=== PATIENT | female | born 1950 | race Two or more races ===

== ENCOUNTER 2017-01-01 12:06 | Emergency (ER) | payer OTHER ==
[~2017-01-01] VITALS: Ht 157.5 cm; Wt 72.6 kg
[2017-01-01] MEDS ORDERED: cloNIDine HCL 0.1 MG TAB ONE (12:10)
[2017-01-01] MEDS ORDERED: cloNIDine HCL 0.1 MG TAB PO ONE (12:30)
[2017-01-01 13:29] LABS: Urine Bilirubin Negative (Negative); Urine Blood Negative /uL (Negative); Urine Glucose Normal (Normal); Urine Ketone Negative (Negative); Urine Nitrite Negative (Negative); Urine RBC <1 /hpf (0 - 4); Urine Squamous Epithelial Cell FEW /hpf (<5); Urine Urobilinogen Normal (Negative); Urine pH 7.5 (5.0-8.0)
[2017-01-01 13:36] LABS: Basophils # (auto) 0 uL; Basophils % (auto) 0.7 % (0.0-2.0); Eosinophils # (auto) 0.1 uL; Eosinophils % (auto) 1.3 % (0.0-7.0); Hematocrit 44.5 % (36.0-46.0); Lymphocytes # (auto) 1.7 uL; Lymphocytes % (auto) 27.3 % (10.0-50.0); Mean Corpuscular Hemoglobin 31.4 pg (28.0-32.0); Mean Corpuscular Hgb Conc. 33.7 g/dL (32.0-36.0); Mean Corpuscular Volume 93.2 fL (80.0-100.0); Mean Platelet Volume 8.8 fL (6.9-10.8); Monocytes # (auto) 0.4 uL; Monocytes % (auto) 6.3 % (0.0-12.0); Neutrophils # (auto) 3.9 uL; Neutrophils % (auto) 64.4 % (37.0-80.0); Nucleated Red Blood Cells % 0.2 %; Platelet Count (auto) 230 10^3/uL (140-450); Red Cell Distribution Width 13.2 % (11.8-14.3); White Blood Cell 6.1 10^3/uL (4.4-10.8)
[2017-01-01 13:44] LABS: BUN/Creatinine Ratio 14.3; Bilirubin, Total 0.5 mg/dL (0.2-1.0); Calcium 8.5 mg/dL (8.5-10.1); Magnesium 2.4 mg/dL (1.6-2.6); Potassium 3.4 mmol/L (3.5-5.1)
[2017-01-01 14:06] LABS: Urine Color Straw (Yellow)
[2017-01-01 20:06] VITALS: BP 173/89
== END 2017-01-01 20:42 | disposition home or self-care (01) ==
LOC: ER 12:06
DX: N39.0 Urinary tract infection, site not specified (principal); R03.0 Elevated blood-pressure reading, without diagnosis of hypertension
CPT/HCPCS: 36415; 74176; 80053; 81001; 83735; 84484; 85025; 93005

== ENCOUNTER 2018-07-11 16:41 | Inpatient (IN) | payer OTHER | END 2018-07-17 18:10 | disposition still patient (30) | LOC: ER 16:41 → TELE 07-12 14:55 → DOU IN ICU 07-12 16:52 → TELE 20:44 | PROC: 027035Z Dilation of Coronary Artery, One Artery with Two Drug-eluting Intraluminal Devices, Percutaneous Approach (ICD-10-PCS; principal; ~2018-07-11) | PROC: B2111ZZ Fluoroscopy of Multiple Coronary Arteries using Low Osmolar Contrast (ICD-10-PCS; ~2018-07-11) | PROC: B2151ZZ Fluoroscopy of Left Heart using Low Osmolar Contrast (ICD-10-PCS; ~2018-07-11) | PROC: 4A023N7 Measurement of Cardiac Sampling and Pressure, Left Heart, Percutaneous Approach (ICD-10-PCS; ~2018-07-11) | PROC: 3E073PZ Introduction of Platelet Inhibitor into Coronary Artery, Percutaneous Approach (ICD-10-PCS; ~2018-07-11) | PROC: B41F1ZZ Fluoroscopy of Right Lower Extremity Arteries using Low Osmolar Contrast (ICD-10-PCS; ~2018-07-11) | PROC: 02C03ZZ Extirpation of Matter from Coronary Artery, One Artery, Percutaneous Approach (ICD-10-PCS; ~2018-07-11) | PROC: 3E073PZ Introduction of Platelet Inhibitor into Coronary Artery, Percutaneous Approach (ICD-10-PCS; ~2018-07-11) | DX: I21.4 Non-ST elevation (NSTEMI) myocardial infarction (principal); I50.31 Acute diastolic (congestive) heart failure; E87.1 Hypo-osmolality and hyponatremia; E87.5 Hyperkalemia; E87.6 Hypokalemia; I25.82 Chronic total occlusion of coronary artery; I70.0 Atherosclerosis of aorta; K76.0 Fatty (change of) liver, not elsewhere classified; Z79.82 Long term (current) use of aspirin; I11.0 Hypertensive heart disease with heart failure ==

== ENCOUNTER 2021-10-29 20:43 | Inpatient (IN) | payer OTHER ==
[~2021-10-29] VITALS: Ht 157.5 cm; Wt 76.0 kg
[~2021-10-29 20:43] MED LIST: ASPI-394 PO; ATOR20TA50 PO; LISI-716 PO; MET25T PO; PANT40TA2 PO; TICA90TA PO
[2021-10-30] LABS: Basophils # (auto) 0 10 ^3/uL (0-0.2); Basophils % (auto) 0.1 % (0.0-2.0); Eosinophils # (auto) 0 10 ^3/uL (0-0.8); Eosinophils % (auto) 0.1 % (0.0-7.0); Hematocrit 36.5 % (36.0-46.0); Hemoglobin 12.7 g/dL (12.2-16.2); Lymphocytes # (auto) 0.8 10 ^3/uL (0.4-5.4); Lymphocytes % (auto) 6.4 % (10.0-50.0); Mean Corpuscular Hemoglobin 32.1 pg (28.0-32.0); Mean Corpuscular Hgb Conc. 34.8 g/dL (32.0-36.0); Monocytes # (auto) 0.5 10 ^3/uL (0-1.3); Monocytes % (auto) 4.2 % (0.0-12.0); Neutrophils # (auto) 11.2 10 ^3/uL (1.6-8.6); Neutrophils % (auto) 89.2 % (37.0-80.0); Red Blood Cells 3.97 10^6/uL (4.0-5.20); Red Cell Distribution Width 13.3 % (11.8-14.3); White Blood Cell 12.5 10^3/uL (4.4-10.8)
[2021-10-30 00:14] LABS: INR 1.06 (0.9-1.15); Partial Thromboplastin Time 26.8 sec (24.6-33.4)
[2021-10-30 00:17] LABS: Albumin 4.2 g/dL (3.4-5.0); Calcium 9.3 mg/dL (8.5-10.1); Magnesium 2.1 mg/dL (1.6-2.6)
[2021-10-30 00:19] LABS: BUN/Creatinine Ratio 12.8
[2021-10-30 00:27] LABS: Bilirubin, Total 0.6 mg/dL (0.2-1.0); Potassium 2.9 mmol/L (3.5-5.1); Total Protein 7.7 g/dL (6.4-8.2)
[2021-10-30] MEDS ORDERED: SODIUM CHLORIDE 0.9% 1,000 ML IV ONE (03:45)
[2021-10-30] MEDS ORDERED: ONDANSETRON HCL 4 MG/2 ML VIAL IV PRN (03:45)
[2021-10-30 04:53] LABS: Basophils # (auto) 0 10 ^3/uL (0-0.2); Basophils % (auto) 0.3 % (0.0-2.0); Eosinophils # (auto) 0 10 ^3/uL (0-0.8); Hematocrit 36.3 % (36.0-46.0); Hemoglobin 12.4 g/dL (12.2-16.2); Lymphocytes % (auto) 13.3 % (10.0-50.0); Mean Corpuscular Hemoglobin 31.6 pg (28.0-32.0); Mean Corpuscular Hgb Conc. 34.3 g/dL (32.0-36.0); Monocytes # (auto) 0.5 10 ^3/uL (0-1.3); Monocytes % (auto) 6.3 % (0.0-12.0); Neutrophils # (auto) 5.8 10 ^3/uL (1.6-8.6); Neutrophils % (auto) 80.1 % (37.0-80.0); Red Blood Cells 3.95 10^6/uL (4.0-5.20); Red Cell Distribution Width 13.3 % (11.8-14.3); White Blood Cell 7.2 10^3/uL (4.4-10.8)
[2021-10-30 05:11] LABS: BUN/Creatinine Ratio 11.4; Calcium 8.9 mg/dL (8.5-10.1)
[2021-10-30 05:39] VITALS: BP 149/78
[2021-10-30 08:00] VITALS: BP 140/71
[2021-10-30] MEDS ORDERED: POTASSIUM CHL 20 Meq TABLET PO ONE ×3 (11:15→12:00)
[2021-10-30] MEDS: ENOXAPARIN SOD 40 MG/0.4 ML SYRINGE SC SCH (12:04)
[2021-10-30] MEDS ORDERED: METO100T18 PO (12:07)
[2021-10-30] MEDS ORDERED: LOSA-69 PO (12:07)
[2021-10-30 13:00] VITALS: BP 150/80
[2021-10-30] MEDS: ACETAMINOPHEN 500 MG TAB PO PRN (14:53)
[2021-10-30 16:46] VITALS: BP 144/76
[2021-10-30] MEDS: LOSARTAN POTASSIUM 50 MG TAB PO SCH (21:27)
[2021-10-30] MEDS: METOPROLOL TARTRATE 25 MG TAB PO SCH (21:27)
[2021-10-30 21:49] VITALS: BP 122/73
[2021-10-30] MEDS ORDERED: ATORVASTATIN 20 MG TAB PO SCH (22:00)
[2021-10-31] MEDS: ACETAMINOPHEN 500 MG TAB PO PRN ×2 (04:29→16:35)
[2021-10-31 05:00] VITALS: BP 139/76
[2021-10-31 06:21] LABS: Basophils # (auto) 0 10 ^3/uL (0-0.2); Basophils % (auto) 0.4 % (0.0-2.0); Eosinophils # (auto) 0 10 ^3/uL (0-0.8); Eosinophils % (auto) 0.4 % (0.0-7.0); Hematocrit 32.9 % (36.0-46.0); Hemoglobin 11.4 g/dL (12.2-16.2); Lymphocytes # (auto) 1.3 10 ^3/uL (0.4-5.4); Mean Corpuscular Hemoglobin 32.3 pg (28.0-32.0); Mean Corpuscular Hgb Conc. 34.6 g/dL (32.0-36.0); Mean Corpuscular Volume 93.4 fL (80.0-100.0); Monocytes # (auto) 0.5 10 ^3/uL (0-1.3); Monocytes % (auto) 8.9 % (0.0-12.0); Neutrophils # (auto) 4.1 10 ^3/uL (1.6-8.6); Neutrophils % (auto) 68.3 % (37.0-80.0); Red Blood Cells 3.52 10^6/uL (4.0-5.20); Red Cell Distribution Width 13.2 % (11.8-14.3)
[2021-10-31 06:42] LABS: Potassium 3.3 mmol/L (3.5-5.1)
[2021-10-31 07:03] LABS: Calcium 8.2 mg/dL (8.5-10.1)
[2021-10-31 08:30] VITALS: BP 125/83
[2021-10-31 08:57] VITALS: BP 125/83
[2021-10-31] MEDS: METOPROLOL TARTRATE 25 MG TAB PO SCH (09:27)
[2021-10-31] MEDS: ENOXAPARIN SOD 40 MG/0.4 ML SYRINGE SC SCH (09:28)
[2021-10-31] MEDS: LOSARTAN POTASSIUM 50 MG TAB PO SCH (09:28)
[2021-10-31] MEDS ORDERED: PANTOPRAZOLE 40 MG TAB PO SCH (10:00)
[2021-10-31] MEDS ORDERED: ASPirin 81 mg TAB PO SCH (10:00)
[2021-10-31] MEDS ORDERED: LISINOPRIL 10 MG TAB PO SCH (10:00)
[2021-10-31 12:22] VITALS: BP 125/83
[2021-10-31 13:00] VITALS: BP 154/76
[2021-10-31 16:45] VITALS: BP 141/74
== END 2021-10-31 22:00 | disposition home health service (06) | DRG 562 ==
LOC: ER 20:43 → TELE 10-30 03:41 → TELE-WESTW 10-30 04:57
PROVIDERS: ADMIT Internal Medicine; ATTEND Internal Medicine
DX: S42.212A Unspecified displaced fracture of surgical neck of left humerus, initial encounter for closed fracture (principal); S72.002A Fracture of unspecified part of neck of left femur, initial encounter for closed fracture; S22.41XA Multiple fractures of ribs, right side, initial encounter for closed fracture; R55 Syncope and collapse; E78.5 Hyperlipidemia, unspecified; E87.6 Hypokalemia; G89.29 Other chronic pain; I11.9 Hypertensive heart disease without heart failure; I25.10 Atherosclerotic heart disease of native coronary artery without angina pectoris; M25.561 Pain in right knee; M25.562 Pain in left knee; R26.9 Unspecified abnormalities of gait and mobility; Z20.822 Contact with and (suspected) exposure to COVID-19; M50.30 Other cervical disc degeneration, unspecified cervical region; W18.39XA Other fall on same level, initial encounter; Y93.89 Activity, other specified; Y92.89 Other specified places as the place of occurrence of the external cause; I25.2 Old myocardial infarction; Z79.899 Other long term (current) drug therapy; Z88.5 Allergy status to narcotic agent; Z91.011 Allergy to milk products; Z80.1 Family history of malignant neoplasm of trachea, bronchus and lung; Z82.49 Family history of ischemic heart disease and other diseases of the circulatory system; Z83.3 Family history of diabetes mellitus; Z95.5 Presence of coronary angioplasty implant and graft; Y99.8 Other external cause status
CPT/HCPCS: 36415; 70450; 70551; 71045; 71250; 72125; 73030; 73502; 74176; 80048; 80053; 80061; 83735; 84443; 84484; 85025; 85610; 85730; 93005; 93306; 95819; 97110; 97116; 97163; 97530; G0378

== ENCOUNTER 2024-11-25 14:12 | Inpatient (IN) | payer OTHER ==
[~2024-11-25] VITALS: Ht 152.4 cm; Wt 79.7 kg
[~2024-11-25 14:12] MED LIST changes: +ASPI81CH49 PO; -ATOR20TA50 PO; +DOCU-265 PO; +IBUP-1455 PO; -LISI-716 PO; +LOSA-534 PO; +LOSA100T33 PO; -MET25T PO; +METO-289 PO; +METO100T18 PO; +PANT40T PO
--- NOTE | 2024-11-25 15:18 | ED.PDOC ---
Musculoskeletal HPI Comments 74 y/o F, with PMHX of HTN is BIBA for CC of lower extremity pain. EMS reports, patient is coming from home where she c/o right knee and left leg pain following, right knee surgery on 10/27/24. Patient states, she received right knee surgery at [facility] in [place], on (10/27/24) and has since, developed right knee and left leg pain. Patient relays, that during procedure she received an epidural which failed and had to receive general anesthesia as a result. Following procedure, patient endorses being unable to move or bear weight onto her legs. Patient has a dry, well healing incision to her right knee. Patient denies fever, chills, nausea, vomiting, numbness, or tingling. No other symptoms or modifying factors are present at this time. Chief Complaint: Lower Extremity Time Seen by MD: 15:00 Primary Care Provider: MARISOL Quinones Notes: Nurses Notes, Medications, Allergies Allergies: Coded Allergies: Codeine (Verified Allergy, Unknown, 07/11/18) Milk-related Compounds (Verified Allergy, Unknown, 07/13/18) Home Meds Active Scripts Pantoprazole Sodium Sesquihydr (Protonix) 40 Mg Tab, 40 MG PO DAILY, #30 TAB Prov:YESSY JAMES MD 07/17/18 Ticagrelor Base (BRILINTA) 90 Mg Tab, 90 MG PO BID, #60 TAB Prov:YESSY JAMES MD 07/17/18 Aspirin (Aspir-Low Ec) 81 Mg Tb, 81 MG PO DAILY, #30 Prov:YESSY JAMES MD 07/17/18 Reported Medications Metoprolol & Hydrochlorothiazi (Metoprolol/Hydrochlorothi) 1 Tab Tab, 1 TAB PO BID, TAB 10/30/21 Losartan Potassium (Losartan Potassium) 50 Mg Tab, 50 MG PO BID for 30 Days, MG 10/30/21 Information Source: Patient Mode of Arrival: EMS Location: Left, Right Extremity Location: Knee, Leg Timing: Days Prehospital treatment: None Severity: Moderate Able to Move Extremity: No Bear Weight: No Pain: Moderate Mechanism: Other (post operative) Symptoms: Pain DVT Risk Factors: NONE Last Tetanus: Unknown Associated signs and symptoms: Knee pain, Leg pain Past Medical History PAST MEDICAL HISTORY: HTN Surgical History: COOK CANDY History: No Pertinent COOK CANDY History Family History Family History: Reviewed,noncontributory to illness Social History Smoker: Non-Smoker Alcohol: Denies ETOH Use Drugs: Denies Drug Use Lives In: Home Constitutional: denies: chills, diaphoresis, fatigue, fever, malaise, sweats, weakness, others EENTM: denies: blurred vision, double vision, ear bleeding, ear discharge, ear drainage, ear pain, ear ringing, eye pain, eye redness, hearing loss, mouth pain, mouth swelling, nasal discharge, nose bleeding, nose congestion, nose pain, photophobia, tearing, throat pain, throat swelling, voice changes, others Respiratory: denies: cough, hemoptysis, orthopnea, SOB at rest, shortness of breath, SOB with excertion, stridor, wheezing, others Cardiovascular: denies: chest pain, dizzy spells, diaphoresis, Dyspnea on exertion, edema, irregular heart beat, left arm pain, lightheadedness, palpitations, PND, syncope, others Gastrointestinal: denies: abdomen distended, abdominal pain, blood streaked bowels, constipated, diarrhea, dysphagia, difficulty swallowing, hematemesis, melena, nausea, poor appetite, poor fluid intake, rectal bleeding, rectal pain, vomiting, others Genitourinary: denies: abnormal vagina bleeding, burning, dyspareunia, dysuria, flank pain, frequency, hematuria, incontinence, pain, , vagina discharge, urgency, others Neurological: denies: dizziness, fainting, headache, left sided numbness, left sided weakness, numbness, paresthesia, pre-existing deficit, right sided numbness, right sided weakness, seizure, speech problems, tingling, tremors, weakness, others Musculoskeletal: reports: others (left leg pain, right knee pain); denies: back pain, gout, joint pain, joint swelling, muscle pain, muscle stiffness, neck pain Integumetry: denies: bruises, change in color, change in hair/nails, dryness, laceration, lesions, lumps, rash, wounds, others Allergic/Immunocompromised: denies: Difficulty Healing, Frequent Infections, Hives, Itching, others Hematologic/Lymphatic: denies: anemia, blood clots, easy bleeding, easy bruising, swollen glands, others Endocrine: denies: excessive hunger, excessive sweating, excessive thirst, excessive urination, flushing, intolerance to cold, intolerance to heat, unexplained weight gain, unexplained weight loss, others Psychiatric: denies: anxiety, bipolar disorder, depression, hopeless, panic disorder, schizophrenia, sleepless, suicidal, others All Other Systems: Reviewed and Negative Physical Exam General Appearance: No Apparent Distress, Normal HEENT: Normal ENT Inspection, Pharynx Normal Neck: Full Range of Motion, Non-Tender, Normal, Normal Inspection Respiratory: Chest Non-Tender, Lungs Clear, No Accessory Muscle Use, No Respiratory Distress, Normal Breath Sounds Cardiovascular: No Edema, No Murmur, No Gallop, Normal Peripheral Pulses, Regular Rate/Rhythm Breast Exam: Deferred Gastrointestinal: No Organomegaly, Non Tender, No Pulsatile Mass, Normal Bowel Sounds, Soft Genitalia: Deferred Pelvic: Deferred Rectal: Deferred Extremities: No calf tenderness, Normal capillary refill, Normal inspection, Normal range of motion, Non-tender, No pedal edema Musculoskeletal : Apperance: Normal Neurologic: Alert, head of partner development II-XII nml as Tested, No Motor Deficits, Normal Affect, Normal Mood, No Sensory Deficits Cerebellar Function: Normal Reflexes: Normal Skin: Dry, Normal Color, Warm, Other (right knee postoperative incision) Lymphatic: No Adenopathy Was a procedure done? Was a procedure done?: No Differential Diagnosis EXT Differential Diagnosis: Sprain, Strain, Bursitis X-Ray, Labs, Meds, VS Vital Signs Date Time Temp Pulse Resp B/P (MAP) Pulse Ox O2 Delivery O2 Flow Rate FiO2 11/25/24 14:25 98.5 101 18 150/91 93 98.5 Lab Test 11/25/24 15:10 Range/Units White Blood Count 11.0 H 4.4-10.8 10^3/uL Red Blood Count 4.15 4.0-5.20 10^6/uL Hemoglobin 13.6 12.2-16.2 g/dL Hematocrit 38.9 36.0-46.0 % Mean Corpuscular Volume 93.7 80.0-100.0 fL Mean Corpuscular Hemoglobin 32.9 H 28.0-32.0 pg Mean Corpuscular Hemoglobin Concent 35.1 32.0-36.0 g/dL Red Cell Distribution Width 13.8 11.8-14.3 % Platelet Count 88 L 140-450 10^3/uL Mean Platelet Volume 9.0 6.9-10.8 fL Neutrophils (%) (Auto) 77.9 37.0-80.0 % Lymphocytes (%) (Auto) 6.7 L 10.0-50.0 % Monocytes (%) (Auto) 3.1 0.0-12.0 % Eosinophils (%) (Auto) 12.2 H 0.0-7.0 % Basophils (%) (Auto) 0.1 0.0-2.0 % Neutrophils # (Auto) 8.6 1.6-8.6 10 ^3/uL Lymphocytes # (Auto) 0.7 0.4-5.4 10 ^3/uL Monocytes # (Auto) 0.3 0-1.3 10 ^3/uL Eosinophils # (Auto) 1.3 H 0-0.8 10 ^3/uL Basophils # (Auto) 0 0-0.2 10 ^3/uL Nucleated Red Blood Cells 0.0 % D-Dimer, Quantitative 34.11 H 0.0-0.49 mg/L FEU Sodium Level 133 L 136-145 mmol/L Potassium Level 2.4 *L 3.5-5.1 mmol/L Chloride Level 94 L 98-107 mmol/L Carbon Dioxide Level 26 20-31 mmol/L Anion Gap 13 5-15 Blood Urea Nitrogen 22 9-23 mg/dL Creatinine 1.25 H 0.550-1.02 mg/dL Glomerular Filtration Rate Calc 45 >90 mL/min BUN/Creatinine Ratio 17.6 10.0-20.0 Serum Glucose 153 H 74-106 mg/dL Calcium Level 8.3 L 8.7-10.4 mg/dL [place] [id number] Ph: [phone] DIAGNOSTIC IMAGING Diagnostic Imaging Report : [id number] Signed PATIENT: ONESIMO FAULKNER ACCT: [id number] UNIT: [id number] : 1950 LOC: ER ROOM / BED: / AGE / SEX: 74 / F ADM STATUS: REG ER SERVICE [id number] ORDERING PHYSICIAN: TON GARCIA MD PROCEDURE(s): LLDVT - LT Lower DVT REASON: left leg pain and swelling after surgery on opposite leg ORDER NUMBER(s): [id number], ACCESSION NUMBER(s): [id number] Technique: Real-time ultrasound imaging, with color Doppler and compression of the left common femoral vein, femoral vein, greater saphenous vein, and popliteal vein. Indication: left leg pain and swelling after surgery on opposite leg Comparison: None Findings: There is normal compressibility and flow augmentation in all of the imaged deep veins. There are no filling defects. Impression: No evidence of DVT in the left lower extremity ATED BY: KAMARI LIZARRAGA MD DICTATED DATE/TIME: 11/25/241606 SIGNED BY: KAMARI LIZARRAGA MD SIGNED DATE/TIME: 11/25/241606 CC: Time of 1ST Reevaluation: 15:30 Reevaluation 1ST: Unchanged Patient Education/Counseling: Diagnosis, Treatment Family Education/Counseling: No Family Present Departure 1 Departure Time of Disposition: 17:39 (Patient with a worsening lower extremity weakness. Patient found to have hypokalemia. We will admit patient for further workup and expert consultation) Impression: Primary Impression: Lower extremity weakness Qualified Codes: R29.898 - Other symptoms and signs involving the musculoskeletal system Additional Impressions: Left leg pain Hypokalemia Disposition: ADMITTED INPATIENT Admit to: Med Surg Condition: Serious Critical Care Note Critical Care Time?: Yes Critical care comment: Critical hypokalemia and generalized weakness Authorized and Performed by: Ton Garcia MD Total critical care time: Approximately 38 minutes Due to a high probability of clinically significant, life threatening deterioration, the patient required my highest level of preparedness to intervene emergently and I personally spent this critical care time directly and personally managing the patient. This critical care time included obtaining a history; examining the patient; pulse oximetry; ordering and review of studies; arranging urgent treatment with development of a management plan; evaluation of patient's response to treatment; frequent reassessment; and, discussions with other providers. This critical care time was performed to assess and manage the high probability of imminent, life-threatening deterioration that could result in multi-organ failure. It was exclusive of separately billable procedures and treating other patients and teaching time. Please see my other sections and the rest of the note for further information on patient assessment and treatment. Stability Stability form required: No Heart Score Heart Score: Heart Score Response (Comments) Value History N/A 0 EKG N/A 0 Age N/A 0 Risk Factors N/A 0 Troponin N/A 0 Total 0 I personally scribed for TON GARCIA MD ([email or web address]) on 11/25/24 at 15:18. Electronically submitted by Anastasiia Wright ([email or web address]). I personally scribed for TON GARCIA MD ([email or web address]) on 11/25/24 at 16:13. Electronically submitted by Anastasiia Wright ([email or web address]). I personally scribed for TON GARCIA MD ([email or web address]) on 11/25/24 at 17:09. Electronically submitted by Anastasiia Wright ([email or web address]). TON GARCIA MD Nov 25, 2024 15:18
[2024-11-25 15:23] LABS: Hematocrit 38.9 % (36.0-46.0); Hemoglobin 13.6 g/dL (12.2-16.2); Mean Corpuscular Hemoglobin 32.9 pg (28.0-32.0); Mean Corpuscular Volume 93.7 fL (80.0-100.0); Nucleated Red Blood Cells % 0.0 %
[2024-11-25 15:32] LABS: Anion Gap 13 (5-15); Carbon Dioxide 26 mmol/L (20-31)
[2024-11-25 15:37] LABS: BUN/Creatinine Ratio 17.6 (10.0-20.0); Blood Urea Nitrogen 22 mg/dL (9-23)
[2024-11-25 15:38] LABS: Glucose 153 mg/dL (74-106)
[2024-11-25 15:39] LABS: Chloride 94 mmol/L (98-107); Sodium 133 mmol/L (136-145)
[2024-11-25 15:40] LABS: Calcium 8.3 mg/dL (8.7-10.4)
[2024-11-25 15:41] LABS: Potassium 2.4 mmol/L (3.5-5.1)
--- NOTE | 2024-11-25 16:06 | DVH ---
Technique: Real-time ultrasound imaging, with color Doppler and compression of the left common femor al vein, femoral vein, greater saphenous vein, and popliteal vein. Indication: left leg pain and swelling after surgery on opposite leg Comparison: None Findings: There is normal compressibility and flow augmentation in all of the imaged deep veins. There are no f illing defects. Impression: No evidence of DVT in the left lower extremity
[2024-11-25 17:00] VITALS: PULSE 96; RESP 20; O2SAT 95
[2024-11-25] MEDS: POTASSIUM CHL 20MEQ/100ML 100 ML IV SCH (18:15)
--- NOTE | 2024-11-25 18:26 | DVH ---
CLINICAL INDICATION: left hip pain TECHNIQUE: 2 radiographic views of the left hip were obtained. Comparison: L SHOULDER COMPLETE XRAY on DOS: 10/29/21, LHIP on DOS: 10/29/21 FINDINGS/IMPRESSION: Bony alignment appears normal. There is no fracture or dislocation.
--- NOTE | 2024-11-25 18:31 | DVH ---
CLINICAL INDICATION: right knee TECHNIQUE: 3 radiographic views of the right knee were obtained. Comparison: None FINDINGS/IMPRESSION: Total arthroplasty is noted on the right. No fracture or dislocation. No prior studies for comparison.
[2024-11-25] MEDS ORDERED: ONDANSETRON HCL 4 MG/2 ML VIAL IV PRN (18:45)
[2024-11-25] MEDS ORDERED: DOCUSATE SOD 100 MG CAP PO PRN (18:45)
--- NOTE | 2024-11-25 18:45 | DVHHP2 ---
Admitting Diagnosis: Right knee pain History of Present Illness 74 y/o F, with PMHX of HTN is BIBA for CC of lower extremity pain. EMS reports, patient is coming from home where she c/o right knee and left leg pain following, right knee surgery on 10/27/24. Patient states, she received right knee surgery at [facility] in [place], on (10/27/24) and has since, developed right knee and left leg pain. Patient relays, that during procedure she received an epidural which failed and had to receive general anesthesia as a result. Following procedure, patient endorses being unable to m ove or bear weight onto her legs. Patient has a dry, well healing incision to her right knee. Patient denies fever, chills, nausea, vomiting, numbness, or tingling. No other symptoms or modifying factors are present at this time. 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 History Family History Family History: Reviewed,noncontributory to illness Social History Smoker: Non-Smoker Alcohol: Denies ETOH Use Drugs: Denies Drug Use Lives In: Home Allergies: Coded Allergies: Codeine (Verified Allergy, Unknown, 07/11/18) Milk-related Compounds (Verified Allergy, Unknown, 07/13/18) Home Meds Active Scripts Pantoprazole Sodium Sesquihydr (Protonix) 40 Mg Tab, 40 MG PO DAILY, #30 TAB Prov:YESSY JAMES MD 07/17/18 Ticagrelor Base (BRILINTA) 90 Mg Tab, 90 MG PO BID, #60 TAB Prov:YESSY JAMES MD 07/17/18 Aspirin (Aspir-Low Ec) 81 Mg Tb, 81 MG PO DAILY, #30 Prov:YESSY JAMES MD 07/17/18 Reported Medications Metoprolol & Hydrochlorothiazi (Metoprolol/Hydrochlorothi) 1 Tab Tab, 1 TAB PO BID, TAB 10/30/21 Losartan Potassium (Losartan Potassium) 50 Mg Tab, 50 MG PO BID for 30 Days, MG 10/30/21 Current Medications Current Medications Medications (Trade) Dose Ordered Sig/Mike Route PRN Reason Start Time Stop Time Status Last Admin Potassium Chloride 100 ml @ 50 mls/hr Q2H IV 11/25/24 17:45 11/26/24 01:44 11/25/24 18:15 Sodium Chloride (Saline Lock Ns) 10 ml Q8HR IV 11/25/24 22:00 UNV Docusate Sodium (Colace Capsule) 100 mg BIDPRN PRN PO FOR CONSTIPATION 11/25/24 18:45 UNV Acetaminophen (Tylenol Tablet) 650 mg Q6HP PRN PO PAIN SCALE 1-3 OR TEMP>100.4 11/25/24 18:45 UNV Vital Signs Vital Signs Date Time Temp Pulse Resp B/P (MAP) Pulse Ox O2 Delivery O2 Flow Rate FiO2 11/25/24 14:25 98.5 101 18 150/91 93 98.5 Physical Exam Generally 74 years old woman, well nourished well developed. Mild distress HEENT-atraumatic, normocephalic Heart-regular rate and rhythm Lungs clear to auscultate bilaterally Abdomen soft nontender nondistended Musculoskeletal-right knee surgical site clean dry intact. No erythema or ten derness. No edema cyanosis Neuro-AO x3, no focal deficits SEPSIS Sepsis Screen Date sepsis recognized/suspect: Nov 25, 2024 Time Sepsis recognized/suspect: 1409 Recent Procedure: No On Antibiotic Therapy: No Respiratory Rate >20: No Heart Rate >90: Yes Temp<36 C (96.8 F) or >38.3 C: No SBP <90 or MAP <65 mmHG: No New Acute Mental Status Change: No Is the patient on CPAP, BIPAP,: No Physician Orders Lt Lower Dvt (11/25/24 15:01) Potassium Chl 20meq/100ml (11/25/24 17:45) L Hip Complete Xray (11/25/24 17:41) R Knee 3v Xray (11/25/24 17:41) Ct Angio Chest Contrast (11/25/24 18:34) Complete Blood Count (11/26/24 05:00) Complete Blood Count (11/27/24 05:00) Complete Blood Count (11/28/24 05:00) Complete Blood Count (11/29/24 05:00) Complete Blood Count (11/30/24 05:00) Comprehensive Metabolic Panel (11/26/24 05:00) Comprehensive Metabolic Panel (11/27/24 05:00) Comprehensive Metabolic Panel (11/28/24 05:00) Comprehensive Metabolic Panel (11/29/24 05:00) Comprehensive Metabolic Panel (11/30/24 05:00) Sodium Chloride 0.9% (11/25/24 18:45) Kidney (11/25/24 18:36) Admit (11/25/24 18:37) Code Status (11/25/24 18:37) Vital Signs .PER UNIT PROTOCOL (11/25/24 18:37) Review Orders With Adm.Md (11/25/24 18:37) Encourage Activity As Tolerate (11/25/24 18:37) Regular Diet (11/26/24 Breakfast) Sodium Chloride Lock (Saline Lock Ns) (11/25/24 22:00) Docusate Sodium Capsule (Colace Capsule) (11/25/24 18:45) Acetaminophen Tablet (Tylenol Tablet) (11/25/24 18:45) Notify Md Of Changes From Base (11/25/24 18:37) Advance Directive (11/25/24 18:37) Patient Condition (11/25/24 18:37) Allergies (11/25/24 18:37) Hydrocodone-Acet 5/325mg Tab (Hartman 5/32 (11/25/24 18:45) Ondansetron Hcl (Zofran) (11/25/24 18:45) Morphine 2mg Iv Q4hprn (11/25/24 18:45) Lovenox 40mg (11/26/24 10:00) Losartan Tablet (Cozaar Tablet) (11/25/24 22:00) Pantoprazole Tablet (Protonix Tablet) (11/26/24 10:00) Ticagrelor (Brilinta) (11/25/24 22:00) Pharmacy To Reconcile Home Med (11/25/24 18:37) Magnesium (11/26/24 05:00) Magnesium (11/27/24 05:00) Magnesium (11/28/24 05:00) Magnesium (11/29/24 05:00) Magnesium (11/30/24 05:00) Vital Signs Date Time Temp Pulse Resp B/P (MAP) Pulse Ox O2 Delivery O2 Flow Rate FiO2 11/25/24 14:25 98.5 101 18 150/91 93 98.5 Laboratory Tests Test 11/25/24 15:10 White Blood Count 11.0 10^3/uL (4.4-10.8) H Medications Medications Dose Ordered Sig/Mike Route Start Time Stop Time Status Last Admin Dose Admin Potassium Chloride 100 ml @ 50 mls/hr Q2H IV 11/25/24 17:45 11/26/24 01:44 11/25/24 18:15 Results Labs Test 11/25/24 15:10 Range/Units White Blood Count 11.0 H 4.4-10.8 10^3/uL Red Blood Count 4.15 4.0-5.20 10^6/uL Hemoglobin 13.6 12.2-16.2 g/dL Hematocrit 38.9 36.0-46.0 % Mean Corpuscular Volume 93.7 80.0-100.0 fL Mean Corpuscular Hemoglobin 32.9 H 28.0-32.0 pg Mean Corpuscular Hemoglobin Concent 35.1 32.0-36.0 g/dL Red Cell Distribution Width 13.8 11.8-14.3 % Platelet Count 88 L 140-450 10^3/uL Mean Platelet Volume 9.0 6.9-10.8 fL Neutrophils (%) (Auto) 77.9 37.0-80.0 % Lymphocytes (%) (Auto) 6.7 L 10.0-50.0 % Monocytes (%) (Auto) 3.1 0.0-12.0 % Eosinophils (%) (Auto) 12.2 H 0.0-7.0 % Basophils (%) (Auto) 0.1 0.0-2.0 % Neutrophils # (Auto) 8.6 1.6-8.6 10 ^3/uL Lymphocytes # (Auto) 0.7 0.4-5.4 10 ^3/uL Monocytes # (Auto) 0.3 0-1.3 10 ^3/uL Eosinophils # (Auto) 1.3 H 0-0.8 10 ^3/uL Basophils # (Auto) 0 0-0.2 10 ^3/uL Nucleated Red Blood Cells 0.0 % D-Dimer, Quantitative 34.11 H 0.0-0.49 mg/L FEU Sodium Level 133 L 136-145 mmol/L Potassium Level 2.4 *L 3.5-5.1 mmol/L Chloride Level 94 L 98-107 mmol/L Carbon Dioxide Level 26 20-31 mmol/L Anion Gap 13 5-15 Blood Urea Nitrogen 22 9-23 mg/dL Creatinine 1.25 H 0.550-1.02 mg/dL Glomerular Filtration Rate Calc 45 >90 mL/min BUN/Creatinine Ratio 17.6 10.0-20.0 Serum Glucose 153 H 74-106 mg/dL Calcium Level 8.3 L 8.7-10.4 mg/dL Primary Diagnosis Right knee pain status post right knee surgery Elevated D-dimer Plan Patient had knee surgery recently and been having right knee pain. Patient reach out to orthopedic surgery without support. Clear D-dimer. Vascular study negative Check CT angio to rule out PE Pain control Leukocytosis with the elevated eosinophil. Does not does not suspect infection in view of right knee has been clean dry no signs of infection Pharmacy for medication reconciliation Assess if patient taking hydrochlorothiazide and beta-chika. Restart losartan and tigrelor Monitor leukocytosis Check procal Full code Lovenox for DVT prophylaxis No GI prophylaxis needed Plan discussed with: Patient Problems List: (1) Lower extremity weakness Status: Acute (2) Left leg pain Status: Acute Date of Service: Nov 25, 2024 Billing Provider: MAIDA HDEZ MD Common Visit Codes: [id number] INP/OBS CARE (MOD) MAIDA HDEZ MD Nov 25, 2024 18:45
--- NOTE | 2024-11-25 19:03 | DVH ---
INDICATION: ismael TECHNIQUE: Multiple real-time sonographic images of the kidneys and bladder were obtained. COMPARISON: None FINDINGS: RIGHT kidney measures 11.1 cm in length. No hydronephrosis. LEFT kidney measures 10.6 cm in length. No hydronephrosis. No large intraluminal masses are seen in the bladder. 475 mL urine in the Prevoid bladder. Bladder wall thickness is 3 mm. No postvoid image. IMPRESSION: 1. No hydronephrosis. 2. 11.1 cm long right kidney 10.6 cm long left kidney. 3. Prevoid bladder volume is 475 mL. Bladder wall measures 3 mm. 4. No postvoid bladder image.
[2024-11-25] MEDS: IOHEXOL 350 MG/ML 100ML IJ ONE (19:33)
--- NOTE | 2024-11-25 20:07 | DVH ---
Procedure: CT CT ANGIO CHEST CONTRAST Reason for study/Clinical History: d-dimer elevated, rule out PE Comparison Study: CHEST XRAY 1 VIEW on DOS: 10/29/21, CT CHEST ABD PELVIS WO CONTRAS on DOS: 10/29/21 Exam Date: 11/25/2024 07:22 PM Radiation Dose Information: CT Dose: CTDI volume is 23.73 mGy. Dose-length product is 812.39 mGy*cm Contrast: Type of contrast: Omnipaque 350 Contrast inject: 60 mL Contrast wasted:0 TECHNIQUE: After the uneventful administration of intravenous contrast intravenously, CT imaging was performed through the chest. Coronal and sagittal reformations were performed by the technologist. FINDINGS: Lower Neck: Visualized portions of the thyroid gland are unremarkable. Aorta and Vasculature: Normal caliber of thoracic aorta. Lymph Nodes: No enlarged intrathoracic lymph nodes. Mediastinum: Heart size is normal. There is no pericardial effusion. The esophagus is unremarkable. Lungs: No focal consolidation, pleural effusion or significant pneumothorax. No suspicious pulmonary nodule or mass. Musculoskeletal: No acute osseous abnormality. Upper abdomen: Limited portions of the upper abdomen are unremarkable. IMPRESSION: 1. No findings of pulmonary emboli or pulmonary artery hypertension. 2. No pulmonary infiltrates or effusions. 3. All CT scans at this medical facility are performed using dose modulation techniques as appropriate to a performed exam including the following: Automated exposure control was utilized; adjustment of t he MA and/or KV according to patient size; and use of iterative reconstruction technique.
[2024-11-25] MEDS ORDERED: TICAGRELOR 90 MG TAB PO SCH (22:00)
[2024-11-25 22:30] VITALS: BP 138/68; PULSE 98; RESP 19; TEMP 98.4
[2024-11-25] MEDS: LOSARTAN POTASSIUM 50 MG TAB PO SCH (23:39)
[2024-11-26] VITALS (7 sets, daily range): BP systolic 124–157; BP diastolic 73–90; PULSE 93–111; RESP 16–18; TEMP 98–99.3; O2SAT 92–95
[2024-11-26] MEDS: SODIUM CHLOR 0.9% PF (SALINE LOCK) 10ML VIAL/SYR IV SCH (00:26)
[2024-11-26] MEDS: ACETAMINOPHEN 325 MG TAB PO PRN (00:41)
[2024-11-26] MEDS: POTASSIUM CHL 20MEQ/100ML 100 ML IV SCH (04:52)
[2024-11-26 05:11] LABS: Albumin 3.2 g/dL (3.2-4.8); Anion Gap 11 (5-15); BUN/Creatinine Ratio 17.1 (10.0-20.0); Blood Urea Nitrogen 19 mg/dL (9-23); Carbon Dioxide 27 mmol/L (20-31); Magnesium 2.1 mg/dL (1.6-2.6); Total Protein 5.9 g/dL (5.7-8.2)
[2024-11-26 05:39] LABS: Hematocrit 36.7 % (36.0-46.0); Hemoglobin 12.6 g/dL (12.2-16.2); Mean Corpuscular Hemoglobin 32.1 pg (28.0-32.0); Mean Corpuscular Volume 93.6 fL (80.0-100.0); Nucleated Red Blood Cells % 0.1 %
[2024-11-26 05:45] LABS: Alanine Aminotransferase 90 U/L (7-40); Alkaline Phosphatase 250 U/L (46-116); Bilirubin, Total 1.8 mg/dL (0.2-1.0); Calcium 7.9 mg/dL (8.7-10.4); Chloride 97 mmol/L (98-107); Glucose 135 mg/dL (74-106); Potassium 2.6 mmol/L (3.5-5.1); Sodium 135 mmol/L (136-145)
[2024-11-26] MEDS: PANTOPRAZOLE 40 MG TAB PO SCH (06:49)
[2024-11-26] MEDS: ENOXAPARIN SOD 40 MG/0.4 ML SYRINGE SC SCH (09:16)
--- NOTE | 2024-11-26 12:12 | DVHPN2 ---
Subjective The patient is seen and examined at bedside. Complain of severe knee pain. Reviewed: Care Plan, H&P, Labs, Medications, Previous Orders, Radiology Changes from previous H/P or p: No Changes Objective Vitals Vital Signs Date Time Temp Pulse Resp B/P (MAP) Pulse Ox O2 Delivery O2 Flow Rate FiO2 11/26/24 09:15 157/90 11/26/24 08:41 98.9 95 18 94 98.9 11/26/24 07:57 Room Air* 0 21 Intake/Output Intake and Output 11/26/24 07:00 Intake Total 800 ml Balance 800 ml Intake Oral 800 ml # Voids 1 General Appearance: Alert, Cooperative, No acute distress HEENT: Atraumatic, PERRLA, EOMI, Mucous membr. moist/pink Neck: Supple Lungs: Clear to auscultation, Normal air movement Cardiovascular: Regular rate, Normal S1, Normal S2, No murmurs, Gallops, Rubs Abdomen: Normal bowel sounds, Soft, No tenderness Neuro: Cranial nerves 3-12 NL Psych/Mental Status: Mental status NL Medications Current Medications Medications Dose Ordered Sig/Mike Route Start Time Stop Time Status Last Admin Dose Admin Sodium Chloride 10 ml Q8HR IV 11/25/24 22:00 11/26/24 06:50 10 ML Docusate Sodium 100 mg BIDPRN PRN PO 11/25/24 18:45 Acetaminophen 650 mg Q6HP PRN PO 11/25/24 18:45 11/26/24 09:15 650 MG Acetaminophen/ Hydrocodone Bitart 1 tab Q4HP PRN PO 11/25/24 18:45 Ondansetron HCl 4 mg Q4HP PRN IV 11/25/24 18:45 Morphine Sulfate 2 mg Q4HPRN PRN IV 11/25/24 18:45 Enoxaparin Sodium 40 mg DAILY SC 11/26/24 10:00 11/26/24 09:16 40 MG Losartan Potassium 50 mg BID PO 11/25/24 22:00 11/26/24 09:15 50 MG Pantoprazole Sodium 40 mg DAILY@0700 PO 11/26/24 07:00 11/26/24 06:49 40 MG Laboratory Results Laboratory Tests 11/26/24 04:27 Chemistry Test 11/25/24 15:10 11/26/24 04:27 Calcium Level 8.3 mg/dL (8.7-10.4) L 7.9 mg/dL (8.7-10.4) L Albumin 3.2 g/dL (3.2-4.8) Magnesium Level 2.1 mg/dL (1.6-2.6) Total Protein 5.9 g/dL (5.7-8.2) Coagulation Test 11/25/24 15:10 D-Dimer, Quantitative 34.11 mg/L FEU (0.0-0.49) H LFT Test 11/26/24 04:27 Alanine Aminotransferase (ALT) 90 U/L (7-40) H Alkaline Phosphatase 250 U/L (46-116) H Aspartate Amino Transferase (AST) 53 U/L (13-40) H Total Bilirubin 1.8 mg/dL (0.2-1.0) H Labs and/or images reviewed: Labs reviewed by me Assessment/Plan Assessment/Plan Right knee pain status post right knee surgery Elevated D-dimer Plan Continuing current management. We will continuing with pain medication. Monitor leukocytosis Restart home medication including hydrochlorothiazide, beta chika, losartan . Review of CTA of chest showed no acute PE. Pain control with [place] and morphine. This medical document was created using an electronic medical record system with [employer] direct computerized dictation system. Although this document has been carefully reviewed, there may still be some phonetic and typographical errors. These areas are purely typographical due to imperfections of the software programs, and do not reflect any compromise in the patient's medical care. Plan discussed with: Patient Date of Service: Nov 26, 2024 Billing Provider: FELECIA VALENCIA MD Common Visit Codes: [id number] INP/OBS CARE(HIGH) FELECIA VALENCIA MD Nov 26, 2024 12:12
[2024-11-27 01:00] VITALS: BP 155/81; PULSE 104; RESP 16; TEMP 98.3; O2SAT 93
[2024-11-27 05:00] VITALS: BP 101/65; PULSE 77; RESP 16; TEMP 97.7; O2SAT 98
[2024-11-27 06:15] LABS: Hemoglobin 12.8 g/dL (12.2-16.2)
[2024-11-27 06:17] LABS: Hematocrit 36.6 % (36.0-46.0); Mean Corpuscular Hemoglobin 32.6 pg (28.0-32.0); Mean Corpuscular Volume 93.1 fL (80.0-100.0)
[2024-11-27 06:24] LABS: Albumin 3.3 g/dL (3.2-4.8); Anion Gap 14 (5-15); BUN/Creatinine Ratio 18.0 (10.0-20.0); Carbon Dioxide 22 mmol/L (20-31); Glucose 102 mg/dL (74-106); Magnesium 1.9 mg/dL (1.6-2.6); Total Protein 6.1 g/dL (5.7-8.2)
[2024-11-27 06:57] LABS: Alanine Aminotransferase 71 U/L (7-40); Alkaline Phosphatase 317 U/L (46-116); Bilirubin, Total 1.9 mg/dL (0.2-1.0); Blood Urea Nitrogen 24 mg/dL (9-23); Calcium 8.0 mg/dL (8.7-10.4); Chloride 98 mmol/L (98-107); Potassium 2.8 mmol/L (3.5-5.1); Sodium 134 mmol/L (136-145)
[2024-11-27 09:00] LABS: Total Cells Counted 100.0 (100)
[2024-11-27 09:06] LABS: Anisocytosis Slight
[2024-11-27 09:47] VITALS: BP 114/76; PULSE 94; RESP 18; TEMP 97.6; O2SAT 92
[2024-11-27 13:20] VITALS: BP 119/75; PULSE 101; RESP 18; TEMP 98.4; O2SAT 89
[2024-11-27] MEDS: POTASSIUM CHL 20 Meq TABLET PO SCH (14:13)
--- NOTE | 2024-11-27 14:52 | DVHPN2 ---
Subjective The patient is seen and examined at bedside. Complain of severe knee pain. Reviewed: Care Plan, H&P, Labs, Medications, Previous Orders, Radiology Changes from previous H/P or p: No Changes Objective Vitals Vital Signs Date Time Temp Pulse Resp B/P (MAP) Pulse Ox O2 Delivery O2 Flow Rate FiO2 11/27/24 13:20 98.4 101 18 119/75 (90) 89 98.4 11/27/24 08:15 Room Air* 0 21 Intake/Output Intake and Output 11/27/24 07:00 Intake Total 1000 ml Balance 1000 ml Intake Oral 1000 ml # Voids 5 General Appearance: Alert, Cooperative, No acute distress HEENT: Atraumatic, PERRLA, EOMI, Mucous membr. moist/pink Neck: Supple Lungs: Clear to auscultation, Normal air movement Cardiovascular: Regular rate, Normal S1, Normal S2, No murmurs, Gallops, Rubs Abdomen: Normal bowel sounds, Soft, No tenderness Neuro: Cranial nerves 3-12 NL Psych/Mental Status: Mental status NL Medications Current Medications Medications Dose Ordered Sig/Mike Route Start Time Stop Time Status Last Admin Dose Admin Sodium Chloride 10 ml Q8HR IV 11/25/24 22:00 11/27/24 14:13 10 ML Docusate Sodium 100 mg BIDPRN PRN PO 11/25/24 18:45 Acetaminophen 650 mg Q6HP PRN PO 11/25/24 18:45 11/27/24 14:13 650 MG Acetaminophen/ Hydrocodone Bitart 1 tab Q4HP PRN PO 11/25/24 18:45 Ondansetron HCl 4 mg Q4HP PRN IV 11/25/24 18:45 Morphine Sulfate 2 mg Q4HPRN PRN IV 11/25/24 18:45 Enoxaparin Sodium 40 mg DAILY SC 11/26/24 10:00 11/26/24 09:16 40 MG Losartan Potassium 50 mg BID PO 11/25/24 22:00 11/27/24 10:26 50 MG Pantoprazole Sodium 40 mg DAILY@0700 PO 11/26/24 07:00 11/27/24 06:13 40 MG Laboratory Results Laboratory Tests 11/27/24 04:56 Chemistry Test 11/27/24 04:56 Albumin 3.3 g/dL (3.2-4.8) Calcium Level 8.0 mg/dL (8.7-10.4) L Magnesium Level 1.9 mg/dL (1.6-2.6) Total Protein 6.1 g/dL (5.7-8.2) LFT Test 11/27/24 04:56 Alanine Aminotransferase (ALT) 71 U/L (7-40) H Alkaline Phosphatase 317 U/L (46-116) H Aspartate Amino Transferase (AST) 51 U/L (13-40) H Total Bilirubin 1.9 mg/dL (0.2-1.0) H Assessment/Plan Assessment/Plan Right knee pain status post right knee surgery Elevated D-dimer Plan Continuing current management. We will continuing with pain medication. Monitor leukocytosis Restart home medication including hydrochlorothiazide, beta chika, losartan . Review of CTA of chest showed no acute PE. Pain control with [place] and morphine. PT to get the patient out of bed and ambulate This medical document was created using an electronic medical record system with [employer] direct computerized dictation system. Although this document has been carefully reviewed, there may still be some phonetic and typographical errors. These areas are purely typographical due to imperfections of the software programs, and do not reflect any compromise in the patient's medical care. Plan discussed with: Patient Date of Service: Nov 27, 2024 Billing Provider: FELECIA VALENCIA MD Common Visit Codes: [id number] INP/OBS CARE(HIGH) FELECIA VALENCIA MD Nov 27, 2024 14:52
[2024-11-27 17:31] VITALS: BP 18/72; PULSE 103; RESP 20; TEMP 98.1; O2SAT 93
[2024-11-27] MEDS: POTASSIUM CHL 20 Meq TABLET PO ONE (18:55)
[2024-11-27 21:00] VITALS: BP 123/73; PULSE 111; RESP 18; TEMP 99.5; O2SAT 93
[2024-11-28] VITALS (8 sets, daily range): BP systolic 108–135; BP diastolic 71–84; PULSE 64–102; RESP 16–20; TEMP 97–100.3; O2SAT 90–94
[2024-11-28 05:52] LABS: Alanine Aminotransferase 51 U/L (7-40); Albumin 3.2 g/dL (3.2-4.8); Alkaline Phosphatase 250 U/L (46-116); Anion Gap 12 (5-15); BUN/Creatinine Ratio 25.8 (10.0-20.0); Bilirubin, Total 1.6 mg/dL (0.2-1.0); Blood Urea Nitrogen 31 mg/dL (9-23); Calcium 7.9 mg/dL (8.7-10.4); Carbon Dioxide 22 mmol/L (20-31); Chloride 100 mmol/L (98-107); Glucose 129 mg/dL (74-106); Hematocrit 37.4 % (36.0-46.0); Hemoglobin 13.4 g/dL (12.2-16.2); Magnesium 2.0 mg/dL (1.6-2.6); Mean Corpuscular Hemoglobin 33.4 pg (28.0-32.0); Mean Corpuscular Volume 93.3 fL (80.0-100.0); Potassium 4.4 mmol/L (3.5-5.1); Sodium 134 mmol/L (136-145); Total Protein 6.0 g/dL (5.7-8.2)
[2024-11-28 06:41] LABS: Total Cells Counted 100.0 (100)
[2024-11-28] MEDS: MORPHINE SULFATE INJ 2 MG/ml SYRG IV PRN (09:11)
--- NOTE | 2024-11-28 12:26 | DVHPN2 ---
Subjective The patient is seen and examined at bedside. Complain of severe knee pain. Reviewed: Care Plan, H&P, Labs, Medications, Previous Orders, Radiology Changes from previous H/P or p: No Changes Objective Vitals Vital Signs Date Time Temp Pulse Resp B/P (MAP) Pulse Ox O2 Delivery O2 Flow Rate FiO2 11/28/24 09:41 102 20 106/66 11/28/24 09:25 98.2 92 98.2 11/28/24 08:00 Room Air* 0 21 Intake/Output Intake and Output 11/28/24 07:00 Intake Total 570 ml Balance 570 ml Intake Oral 570 ml # Voids 5 # Bowel Movements 1 General Appearance: Alert, Cooperative, No acute distress HEENT: Atraumatic, PERRLA, EOMI, Mucous membr. moist/pink Neck: Supple Lungs: Clear to auscultation, Normal air movement Cardiovascular: Regular rate, Normal S1, Normal S2, No murmurs, Gallops, Rubs Abdomen: Normal bowel sounds, Soft, No tenderness Neuro: Cranial nerves 3-12 NL Psych/Mental Status: Mental status NL Medications Current Medications Medications Dose Ordered Sig/Mike Route Start Time Stop Time Status Last Admin Dose Admin Sodium Chloride 10 ml Q8HR IV 11/25/24 22:00 11/28/24 06:01 10 ML Docusate Sodium 100 mg BIDPRN PRN PO 11/25/24 18:45 Acetaminophen 650 mg Q6HP PRN PO 11/25/24 18:45 11/27/24 22:35 650 MG Acetaminophen/ Hydrocodone Bitart 1 tab Q4HP PRN PO 11/25/24 18:45 Ondansetron HCl 4 mg Q4HP PRN IV 11/25/24 18:45 Morphine Sulfate 2 mg Q4HPRN PRN IV 11/25/24 18:45 11/28/24 09:11 2 MG Enoxaparin Sodium 40 mg DAILY SC 11/26/24 10:00 11/28/24 09:10 40 MG Losartan Potassium 50 mg BID PO 11/25/24 22:00 11/28/24 09:10 50 MG Pantoprazole Sodium 40 mg DAILY@0700 PO 11/26/24 07:00 11/28/24 06:01 40 MG Laboratory Results Laboratory Tests 11/28/24 04:53 Chemistry Test 11/28/24 04:53 Albumin 3.2 g/dL (3.2-4.8) Calcium Level 7.9 mg/dL (8.7-10.4) L Magnesium Level 2.0 mg/dL (1.6-2.6) Total Protein 6.0 g/dL (5.7-8.2) LFT Test 11/28/24 04:53 Alanine Aminotransferase (ALT) 51 U/L (7-40) H Alkaline Phosphatase 250 U/L (46-116) H Aspartate Amino Transferase (AST) 44 U/L (13-40) H Total Bilirubin 1.6 mg/dL (0.2-1.0) H Labs and/or images reviewed: Labs reviewed by me Assessment/Plan Assessment/Plan Right knee pain status post right knee surgery Elevated D-dimer Plan Continuing current management. We will continuing with pain medication. Monitor leukocytosis Restart home medication including hydrochlorothiazide, beta chika, losartan . Review of CTA of chest showed no acute PE. Pain control with [place] and morphine. PT to get the patient out of bed and ambulate. Encouraged the patient to work with PT. This medical document was created using an electronic medical record system with [employer] direct computerized dictation system. Although this document has been carefully reviewed, there may still be some phonetic and typographical errors. These areas are purely typographical due to imperfections of the software programs, and do not reflect any compromise in the patient's medical care. Plan discussed with: Patient Date of Service: Nov 28, 2024 Billing Provider: FELECIA VALENCIA MD Common Visit Codes: [id number] INP/OBS CARE(HIGH) FELECIA VALENCIA MD Nov 28, 2024 12:26
[2024-11-29] VITALS (11 sets, daily range): BP systolic 94–155; BP diastolic 49–90; PULSE 86–114; RESP 18–24; TEMP 97.4–105; O2SAT 92–98
[2024-11-29] MEDS: HYDROcodone-ACET 5/325MG TAB PO PRN (01:54)
[2024-11-29 08:09] LABS: Hematocrit 34.5 % (36.0-46.0); Hemoglobin 12.0 g/dL (12.2-16.2); Mean Corpuscular Hemoglobin 32.7 pg (28.0-32.0); Mean Corpuscular Volume 94.5 fL (80.0-100.0); Nucleated Red Blood Cells % 0.1 %
[2024-11-29 08:27] LABS: Alanine Aminotransferase 38 U/L (7-40); Anion Gap 10 (5-15); BUN/Creatinine Ratio 26.0 (10.0-20.0); Carbon Dioxide 22 mmol/L (20-31); Chloride 99 mmol/L (98-107); Magnesium 2.0 mg/dL (1.6-2.6); Potassium 4.4 mmol/L (3.5-5.1); Total Protein 5.8 g/dL (5.7-8.2)
[2024-11-29 08:28] LABS: Albumin 3.0 g/dL (3.2-4.8); Alkaline Phosphatase 202 U/L (46-116); Bilirubin, Total 1.4 mg/dL (0.2-1.0); Blood Urea Nitrogen 40 mg/dL (9-23); Calcium 7.6 mg/dL (8.7-10.4); Glucose 119 mg/dL (74-106); Sodium 131 mmol/L (136-145)
--- NOTE | 2024-11-29 12:40 | ECG ---
[facility] Test Date: 2024-11-27 Test Time: 10:45:37 Pat Name: ONESIMO FAULKNER Department: Room: 0272 A Gender: F Speech And Language Clinician: PARESH : 1950 Requested By: FELECIA VALENCIA Order Number: [id number] Reading MD: Andres Quezada Measurements Intervals [place] Rate: 99 P: 54 CT: 140 QRS: -35 QRSD: 95 T: 90 QT: 355 QTc: 456 Interpretive Statements Sinus rhythm Probable left atrial enlargement Left axis deviation Low voltage, extremity leads Consider anterior infarct Nonspecific T abnormalities, lateral leads Electronically Signed On 11-29-2024 18:27:23 PDT by Andres Quezada Please click the below link to view image of tracing.
--- NOTE | 2024-11-29 15:58 | DVHPN2 ---
Subjective Complaining of chest discomfort with audible wheezing Reviewed: Care Plan, H&P, Labs, Medications, Previous Orders, Radiology Changes from previous H/P or p: Changes Objective Vitals Vital Signs Date Time Temp Pulse Resp B/P (MAP) Pulse Ox O2 Delivery O2 Flow Rate FiO2 11/29/24 15:50 100.5 11/29/24 13:17 111 21 150/90 (110) 92 11/29/24 08:00 Nasal Cannula* 1 24 Intake/Output Intake and Output 11/29/24 07:00 Intake Total 330 ml Balance 330 ml Intake Oral 330 ml # Voids 7 General Appearance: Alert, Oriented X3, Cooperative, moderate distress HEENT: Atraumatic Neck: Supple Lungs: Other (Decreased air entry bilaterally with severe expiratory wheezing) Cardiovascular: Normal S1, Normal S2, Other (Tachycardia) Abdomen: Normal bowel sounds, Soft, No tenderness Extremities: No edema Neuro: Normal speech, Cranial nerves 3-12 NL Psych/Mental Status: Mental status NL, Mood NL Medications Current Medications Medications Dose Ordered Sig/Mike Route Start Time Stop Time Status Last Admin Dose Admin Sodium Chloride 10 ml Q8HR IV 11/25/24 22:00 11/29/24 05:05 10 ML Docusate Sodium 100 mg BIDPRN PRN PO 11/25/24 18:45 Acetaminophen 650 mg Q6HP PRN PO 11/25/24 18:45 11/29/24 15:50 650 MG Acetaminophen/ Hydrocodone Bitart 1 tab Q4HP PRN PO 11/25/24 18:45 11/29/24 01:54 1 TAB Ondansetron HCl 4 mg Q4HP PRN IV 11/25/24 18:45 Morphine Sulfate 2 mg Q4HPRN PRN IV 11/25/24 18:45 11/28/24 09:11 2 MG Enoxaparin Sodium 40 mg DAILY SC 11/26/24 10:00 11/28/24 09:10 40 MG Losartan Potassium 50 mg BID PO 11/25/24 22:00 11/29/24 09:24 50 MG Pantoprazole Sodium 40 mg DAILY@0700 PO 11/26/24 07:00 11/29/24 06:02 40 MG Laboratory Results Laboratory Tests 11/29/24 06:48 Chemistry Test 11/29/24 06:48 Albumin 3.0 g/dL (3.2-4.8) L Calcium Level 7.6 mg/dL (8.7-10.4) L Magnesium Level 2.0 mg/dL (1.6-2.6) Total Protein 5.8 g/dL (5.7-8.2) LFT Test 11/29/24 06:48 Alanine Aminotransferase (ALT) 38 U/L (7-40) Alkaline Phosphatase 202 U/L (46-116) H Aspartate Amino Transferase (AST) 37 U/L (13-40) Total Bilirubin 1.4 mg/dL (0.2-1.0) H Labs and/or images reviewed: Labs reviewed by me, Image(s) reviewed by me Assessment/Plan Assessment/Plan Covering: Suspected sepsis with worsening leukocytosis due to suspected pneumonia Acute hypoxic respiratory failure due to pulmonary congestion and suspected pneumonia Chest discomfort; to rule out ACS NSTEMI; elevated troponin Elevated D-dimer; PE and DVT ruled out Episodic wheezing with tachycardia Hypertensive heart disease without heart failure Physical deconditioning due to above Thrombocytopenia; unclear etiology Obesity Transfer to telemetry; reviewed EKG that showed no ST-elevation; ordered troponin that came back elevated Cardiology consulted Started aspirin and statin but aspirin was not given due to thrombocytopenia Started on nebulizers Continue oxygen therapy as indicated Started IV antibiotics [place] consulted for SNF placement for rehab as per Physical Therapy recommendations when medically stable Counseled the patient importance of adopting healthy lifestyle with diet and exercise in order to lose weight Continue antihypertensive medication/s and adjust according to blood pressure monitoring Reviewed previous imaging studies including chest angiogram Reviewed the available lab work Ordered echocardiogram; reviewed old echocardiogram from 2021 that showed no wall abnormalities and no heart failure Ordered blood and urine cultures Continue close monitoring Goals of care discussed with the patient and her daughters for 20 minutes; full code 60 minutes of critical care time Late Entry. This medical document was created using an electronic medical record system with computerized dictation system. Although this document has been carefully reviewed, there might still be some phonetic and typographical errors. These areas are purely typographical due to imperfections of the software programs, and do not reflect any compromise in the patient's medical care. Plan discussed with: Patient, Daughter, Other (Nurse) My Orders Orders - AUDI TUCKER MD Procedure Category Date Status Time * [place] CONS 11/29/24 Transmitted Consult Chest Portable XY 11/29/24 Logged 15:40 Urine Bacterial RANDELL 11/29/24 Logged Culture 15:40 Blood Culture RANDELL 11/29/24 Logged 15:40 Ceftriaxone 1gm/50ml PHA 11/29/24 In Process (Rocephin) 15:45 D-Dimer LAB 11/29/24 Logged 15:40 Date of Service: Nov 29, 2024 Billing Provider: AUDI TUCKER MD Common Visit Codes: [id number] CARE 30-74 MIN (60 minutes) Secondary Visit Codes: [id number] CARE PLAN 30 MINUTES (20 minutes) AUDI TUCKER MD Nov 29, 2024 15:58
[2024-11-29] MEDS: LEVALBUTEROL HCL 1.25 MG/3 ML NEB ONE (16:07)
--- NOTE | 2024-11-29 16:31 | DVH ---
CHEST RADIOGRAPH Indication: Resp failure Technique: XY CHEST PORTABLE COMPARISON: None FINDINGS: The cardiac silhouette is enlarged. The lungs demonstrate bilateral patchy airspace opacities. The pu lmonary vasculature is prominent. Small bilateral pleural effusions. There is no pneumothorax. IMPRESSION: Cardiomegaly with pulmonary vascular congestion and bilateral patchy airspace opacities. Small bilateral pleural effusions.
[2024-11-29] MEDS: LEVALBUTEROL HCL 1.25 MG/3 ML NEB NEB PRN (16:33)
[2024-11-29] MEDS: ATORVASTATIN 20 MG TAB PO SCH (21:21)
[2024-11-30] VITALS (11 sets, daily range): BP systolic 103–133; BP diastolic 60–79; PULSE 88–105; RESP 18–21; TEMP 98.1–98.8; O2SAT 91–98
[2024-11-30] MEDS: PIPERACILLIN-TAZOB 3.375GM 100 ML IV SCH (05:55)
[2024-11-30 06:28] LABS: Hematocrit 34.4 % (36.0-46.0); Hemoglobin 11.9 g/dL (12.2-16.2); Mean Corpuscular Hemoglobin 32.6 pg (28.0-32.0); Mean Corpuscular Volume 94.0 fL (80.0-100.0); Nucleated Red Blood Cells % 0.0 %
[2024-11-30 07:05] LABS: Alanine Aminotransferase 34 U/L (7-40); Anion Gap 12 (5-15); BUN/Creatinine Ratio 38.4 (10.0-20.0); Carbon Dioxide 22 mmol/L (20-31); Magnesium 2.2 mg/dL (1.6-2.6); Total Protein 6.1 g/dL (5.7-8.2)
[2024-11-30 07:13] LABS: Albumin 3.2 g/dL (3.2-4.8); Alkaline Phosphatase 198 U/L (46-116); Bilirubin, Total 1.3 mg/dL (0.2-1.0); Blood Urea Nitrogen 43 mg/dL (9-23); Calcium 7.6 mg/dL (8.7-10.4); Chloride 96 mmol/L (98-107); Glucose 120 mg/dL (74-106); Potassium 4.1 mmol/L (3.5-5.1); Sodium 130 mmol/L (136-145)
[2024-11-30 10:53] LABS: COVID19 ANTIGEN SOFIA FIA NEGATIVE (NEGATIVE)
--- NOTE | 2024-11-30 11:10 | DVHINCON2 ---
Date Seen: Nov 30, 2024 Referring Physician MD Seymour Reason for Consultation Chest discomfort, history of stents History of Present Illness This is a Emirati-speaking 74-year-old female patient who presents to emergency room with chief complaint of generalized weakness and bilateral lower extremity pain for one week prior to emergency room arrival. Patient also stated that she was experiencing chills on the day of admission. Cardiology has been consulted at this time for chest discomfort. The patient does report she has been experiencing chest discomfort for approximately three days. She describes it as unprovoked, intermittent, substernal pressure-like in nature, and nonradiating. Initial twelve lead electrocardiogram in the emergency room reveals normal sinus rhythm with Q-waves seen in anterior leads. Initial troponin level of 971ng/L with down trend thereafter. A repeat twelve lead electrocardiogram was done on the telemetry floor and reveals sinus tachycardia with ST segment changes to lateral leads. Significant past medical history includes coronary artery disease status post multiple PTCA's X 4 LITA (on ASA), myocardial infarction, hypertension, dyslipidemia, and obesity. The patient follows up with a heat transfer technician in [place], [place]. Past Medical History Past medical history reviewed. No other significant than mentioned above. Past Surgical History Right knee arthroplasty Multiple PTCAs Family History: Patient reports no known family medical history. Family History Family history reviewed. Social History Denies the use of tobacco, alcohol or illicit drugs. Allergies: Coded Allergies: Oatmeal (Verified Allergy, Severe, 11/29/24) Pt states she is allergic and if she eats it her throat closes up. Soy Allergy (Obsolete) (Verified Allergy, Severe, 11/29/24) Pt states shes allergic to soy if she does eat it, it closes up her throat. Codeine (Verified Allergy, Unknown, 07/11/18) Milk-related Compounds (Verified Allergy, Unknown, 07/13/18) Uncoded Allergies: PEAS (Allergy, Unknown, 11/30/24) Home Meds Reported Medications Aspirin (Aspirin) 81 Mg Chw, 1 TAB PO BID for 30 Days, #60 11/29/24 Pantoprazole Sodium Sesquihydr (Pantoprazole Sodium) 40 Mg Tab, 20 MG PO DAILY PRN for 90 Days, #90 11/29/24 Metoprolol Succinate (Metoprolol Succinate Er) 50 Mg Tab, 1 TAB PO DAILY for 60 Days, #60 11/29/24 Ibuprofen Micronized (Ibuprofen) 800 Mg Tab, 1 TAB PO DAILY for 60 Days, #60 11/29/24 Docusate Sodium (Docusate Sodium) 100 Mg Cap, 1 CAP PO BID PRN for 30 Days, #60 11/29/24 Losartan Potassium & Hydrochlo (Losartan Potassium/Hydroc) 1 Tab Tab, 1 TAB PO DAILY for 90 Days, #90 [LOSARTAN/HCTZ 100/25 MG] 11/29/24 Home Meds Home medications reviewed. Current Medications Current Medications Medications (Trade) Dose Ordered Sig/Mike Route PRN Reason Start Time Stop Time Status Last Admin Levalbuterol HCl (Xopenex Medneb) 1.25 mg Q4HPRN PRN NEB SHORTNESS OF BREATH 11/29/24 16:00 11/29/24 16:33 Aspirin 81 mg DAILY PO 11/30/24 10:00 11/30/24 10:42 Atorvastatin Calcium (Lipitor) 40 mg HS PO 11/29/24 22:00 11/29/24 21:21 Piperacillin Sod/ Tazobactam Sod 100 ml @ 25 mls/hr Q8HR IV 11/30/24 06:00 11/30/24 05:55 Review of Systems Constitutional: Generalized weakness Ears, Nose, & Throat: No symptom reported Eyes: No symptom reported Neurological: No symptoms reported Pulmonary/Respiratory: No symptoms reported Cardiovascular: No symptom reported Gastrointestinal: No symptom reported Genitourinary: No symptom reported Musculoskeletal: Bilateral lower extremity pain Skin: No symptom reported Psychiatric: No symptom reported Endocrine: No symptom reported Hematologic/Lymphatic: No symptom reported Vital Signs Vital Signs Date Time Temp Pulse Resp B/P (MAP) Pulse Ox O2 Delivery O2 Flow Rate FiO2 11/30/24 10:42 133/79 11/30/24 08:46 98.6 103 21 96 98.6 11/30/24 07:50 Nasal Cannula* 2 28 Physical Exam General Appearance: Cooperative. Obese Pulmonary/Respiratory: Clear, bilateral breaths sounds. Cardiovascular/Chest: Regular rate and rhythm. Peripheral Pulses: 2+ Radial (R). 2+ Radial (L). 2+ Pedal (R). 2+ Pedal (L) Abdominal Exam: Normal bowel sounds. Ankle Exam: Nonpitting ankle edema bilaterally Lower extremities: Nonpitting edema to bilateral lower legs Neuro/Mental Status: A/OX4, coherent. Thoughts/Psych: Normal thought pattern. Appropriate mood and affect. Good judgment and insight. Appearance: No acute distress. Skin Exam: Normal inspection. Scar to right knee. Normal color. Warm and dry. Labs/Diagnostic Data Labs Test 11/30/24 05:20 11/30/24 04:00 11/29/24 23:00 11/29/24 15:43 Range/Units White Blood Count 10.7 4.4-10.8 10^3/uL Red Blood Count 3.66 L 4.0-5.20 10^6/uL Hemoglobin 11.9 L 12.2-16.2 g/dL Hematocrit 34.4 L 36.0-46.0 % Mean Corpuscular Volume 94.0 80.0-100.0 fL Mean Corpuscular Hemoglobin 32.6 H 28.0-32.0 pg Mean Corpuscular Hemoglobin Concent 34.7 32.0-36.0 g/dL Red Cell Distribution Width 14.6 H 11.8-14.3 % Platelet Count 60 L 140-450 10^3/uL Mean Platelet Volume 11.6 H 6.9-10.8 fL Neutrophils (%) (Auto) 82.3 H 37.0-80.0 % Lymphocytes (%) (Auto) 8.8 L 10.0-50.0 % Monocytes (%) (Auto) 8.3 0.0-12.0 % Eosinophils (%) (Auto) 0.4 0.0-7.0 % Basophils (%) (Auto) 0.2 0.0-2.0 % Neutrophils # (Auto) 8.8 H 1.6-8.6 10 ^3/uL Lymphocytes # (Auto) 0.9 0.4-5.4 10 ^3/uL Monocytes # (Auto) 0.9 0-1.3 10 ^3/uL Eosinophils # (Auto) 0 0-0.8 10 ^3/uL Basophils # (Auto) 0 0-0.2 10 ^3/uL Nucleated Red Blood Cells 0.0 % Sodium Level 130 L 136-145 mmol/L Potassium Level 4.1 3.5-5.1 mmol/L Chloride Level 96 L 98-107 mmol/L Carbon Dioxide Level 22 20-31 mmol/L Anion Gap 12 5-15 Blood Urea Nitrogen 43 H 9-23 mg/dL Creatinine 1.12 H 0.550-1.02 mg/dL Glomerular Filtration Rate Calc 51 >90 mL/min BUN/Creatinine Ratio 38.4 H 10.0-20.0 Serum Glucose 120 H 74-106 mg/dL Calcium Level 7.6 L 8.7-10.4 mg/dL Magnesium Level 2.2 1.6-2.6 mg/dL Total Bilirubin 1.3 H 0.2-1.0 mg/dL Aspartate Amino Transferase (AST) 36 13-40 U/L Alanine Aminotransferase (ALT) 34 7-40 U/L Alkaline Phosphatase 198 H 46-116 U/L Total Protein 6.1 5.7-8.2 g/dL Albumin 3.2 3.2-4.8 g/dL Influenza Type A Antigen Negative Negative Influenza Type B Antigen Negative Negative Troponin I High Sensitivity 719 *H </=34 ng/L POC Glucose 84 70-106 mg/dl Test 11/28/24 04:53 11/27/24 04:56 11/25/24 15:10 Range/Units Differential Total Cells Counted 100.0 100 Neutrophils % (Manual) 77 37.0-80.0 Band Neutrophils % (Manual) 1 Lymphocytes % (Manual) 19 10.0-50.0 Monocytes % (Manual) 1 0-12 Eosinophils % (Manual) 0 0-7 Basophils % (Manual) 0 0.0-2.0 Metamyelocytes % (manual) 1 Myelocytes % (Manual) 1 Promyelocytes % (Manual) 0 Blast Cells % (Manual) 0 Reactive Lymphocytes 0 Platelet Estimate Decreased Clumped Platelets Few Anisocytosis (manual) Slight D-Dimer, Quantitative 34.11 H 0.0-0.49 mg/L FEU Microbiology Date/Time Source Procedure Growth Status 11/29/24 16:25 Blood Blood Culture - Preliminary Resulted Assessment NSTEMI Rule out structural heart disease Coronary artery disease s/p PTCA's X 4 LITA (on ASA) Hypertension Dyslipidemia Thrombocytopenia Bacteremia Obesity Plan/Recommendation We will continue with the following plan/recommendations (Dr. Rodriguez): Case discussed with . We will proceed with obtaining a transthoracic echocardiogram to evaluate cardiac function. Elevated troponin level noted. Possibly demand mismatch ischemia in the setting of sepsis/bacteremia as patient has positive preliminary blood cultures. At this time, the patient has a low platelet count. Consider outpatient ischemic workup. In the meantime, continue with single antiplatelet therapy (closely monitor platelet count) and lipid- lowering agent. Antibiotics per primary care team. Thank you for allowing us to care for this patient. Please call with any questions or concerns. Critical care time spent: 44 minutes This medical document was created using an electronic medical record system with voice recognition software and computerized dictation system. Although this document has been carefully reviewed, there might still be some phonetic and typ ographical errors. Occasional wrong-word or ``sound-alike substitutions may have occurred due to the inherent limitations of voice recognition software. These areas are purely typographical due to imperfections of the software programs and do not reflect any compromise in the patient's medical care. Please read the chart carefully and recognize, using context, where these subs titutions have occurred. Plan discussed with: Patient NYHA Physical activity limitations: NA Date of Service: Nov 30, 2024 Billing Provider: JASON GUERIN Cardiology Common Codes: [id number] INP/OBS CARE (High) Cardiology Consultation Codes: [id number] CONSULT <45MIN JASON GUERIN Nov 30, 2024 11:10
[2024-11-30 13:47] LABS: Cholesterol 126 mg/dL (< 200)
[2024-11-30 13:49] LABS: HDL Cholesterol 7 mg/dL (40-59); Triglycerides 217 mg/dL (< 150)
--- NOTE | 2024-11-30 14:27 | DVH ---
Right lower extremity venous duplex Clinical History: right leg pain, edema Comparison: US LT LOWER DVT on DOS: 11/25/24 Findings: Duplex Doppler evaluation of the deep venous system of the right lower extremity from the common femo ral vein to the popliteal vein including color Doppler and spectral/pulsed waveform analysis was perf ormed. The common femoral vein demonstrates appropriate compressibility and waveform variability. There is compressibility/patency of the great saphenous vein at the proximal thigh. The femoral vein demonstrates appropriate compressibility and waveform variability. The deep femoral vein demonstrates appropriate compressibility and waveform variability. The popliteal vein demonstrates appropriate compressibility and waveform variability. There is normal compressibility at the tibioperoneal trunk. Impression: No right femoropopliteal venous thrombosis. If clinical concern/symptoms persist or worsen, short-interval follow-up study is suggested.
[2024-11-30] MEDS: FUROSEMIDE 20 MG/2 ML VIAL IV ONE (16:15)
--- NOTE | 2024-11-30 16:16 | DVHPN2 ---
Subjective She is alert awake oriented to place and person comfortable in bed. Getting 2D echocardiogram. Daughter is bedside. Reviewed: Care Plan, H&P, Labs, Medications, Previous Orders, Radiology Changes from previous H/P or p: No Changes Objective Vitals Vital Signs Date Time Temp Pulse Resp B/P (MAP) Pulse Ox O2 Delivery O2 Flow Rate FiO2 11/30/24 13:00 98.8 104 21 115/71 (86) 91 98.8 11/30/24 08:00 Nasal Cannula* 1 24 Intake/Output Intake and Output 11/30/24 07:00 Intake Total 1500 ml Balance 1500 ml Intake Oral 1450 ml IV Total 50 ml # Voids 5 General Appearance: Alert, Oriented X3, Cooperative, moderate distress HEENT: Atraumatic Neck: Supple Lungs: Other (Decreased air entry bilaterally with severe expiratory wheezing) Cardiovascular: Normal S1, Normal S2, Other (Tachycardia) Abdomen: Normal bowel sounds, Soft, No tenderness Extremities: No edema Neuro: Normal speech, Cranial nerves 3-12 NL Psych/Mental Status: Mental status NL, Mood NL Medications Current Medications Medications Dose Ordered Sig/Mike Route Start Time Stop Time Status Last Admin Dose Admin Sodium Chloride 10 ml Q8HR IV 11/25/24 22:00 11/30/24 05:40 10 ML Docusate Sodium 100 mg BIDPRN PRN PO 11/25/24 18:45 Acetaminophen 650 mg Q6HP PRN PO 11/25/24 18:45 11/30/24 10:42 650 MG Acetaminophen/ Hydrocodone Bitart 1 tab Q4HP PRN PO 11/25/24 18:45 11/29/24 01:54 1 TAB Ondansetron HCl 4 mg Q4HP PRN IV 11/25/24 18:45 Morphine Sulfate 2 mg Q4HPRN PRN IV 11/25/24 18:45 11/28/24 09:11 2 MG Enoxaparin Sodium 40 mg DAILY SC 11/26/24 10:00 11/28/24 09:10 40 MG Pantoprazole Sodium 40 mg DAILY@0700 PO 11/26/24 07:00 11/30/24 05:57 40 MG Levalbuterol HCl 1.25 mg Q4HPRN PRN NEB 11/29/24 16:00 11/29/24 16:33 1.25 MG Aspirin 81 mg DAILY PO 11/30/24 10:00 11/30/24 10:42 81 MG Atorvastatin Calcium 40 mg HS PO 11/29/24 22:00 11/29/24 21:21 40 MG Piperacillin Sod/ Tazobactam Sod 100 ml @ 25 mls/hr Q8HR IV 11/30/24 06:00 11/30/24 05:55 25 MLS/HR Losartan Potassium 50 mg DAILY PO 12/01/24 10:00 UNV Furosemide 20 mg DAILY IV 12/01/24 10:00 UNV Laboratory Results Laboratory Tests 11/30/24 05:20 Chemistry Test 11/30/24 05:20 Albumin 3.2 g/dL (3.2-4.8) Calcium Level 7.6 mg/dL (8.7-10.4) L Magnesium Level 2.2 mg/dL (1.6-2.6) Total Protein 6.1 g/dL (5.7-8.2) Lipid panel Test 11/30/24 05:20 Cholesterol Level 126 mg/dL (< 200) HDL Cholesterol 7 mg/dL (40-59) L Triglycerides Level 217 mg/dL (< 150) H LFT Test 11/30/24 05:20 Alanine Aminotransferase (ALT) 34 U/L (7-40) Alkaline Phosphatase 198 U/L (46-116) H Aspartate Amino Transferase (AST) 36 U/L (13-40) Total Bilirubin 1.3 mg/dL (0.2-1.0) H HgA1c, TSH Test 11/30/24 05:20 Hemoglobin A1c 5.8 % A1C (<5.7) H Thyroid Stimulating Hormone (TSH) 4.09 uIU/mL (0.55-4.78) Microbiology Microbiology Date/Time Source Procedure Growth Status 11/29/24 16:25 Blood Blood Culture - Preliminary Resulted Assessment/Plan Assessment/Plan Suspected sepsis with worsening leukocytosis due to suspected pneumonia Acute hypoxic respiratory failure due to pulmonary congestion and suspected pneumonia Chest discomfort; to rule out ACS NSTEMI; elevated troponin Elevated D-dimer; PE and DVT ruled out Episodic wheezing with tachycardia Hypertensive heart disease without heart failure Physical deconditioning due to above Thrombocytopenia; unclear etiology Obesity Transfer to telemetry; reviewed EKG that showed no ST-elevation; ordered troponin that came back elevated Cardiology consulted Started aspirin and statin but aspirin was not given due to thrombocytopenia Started on nebulizers Continue oxygen therapy as indicated Started IV antibiotics [facility] Room Attendant consulted for SNF placement for rehab as per Physical Therapy recommendations when medically stable Counseled the patient importance of adopting healthy lifestyle with diet and exercise in order to lose weight Continue antihypertensive medication/s and adjust according to blood pressure monitoring Reviewed previous imaging studies including chest angiogram Reviewed the available lab work Ordered echocardiogram; reviewed old echocardiogram from 2021 that showed no wall abnormalities and no heart failure Ordered blood and urine cultures Continue close monitoring Patient's daughter is at bedside and discussed with the her regarding care plan. Chart is reviewed. Continue current antibiotics. I will put in a consultation for electrical project engineer as well as Orthopedic surgery. Patient's blood cultures came back growing Gram-negative rods. Suspect UTI therefore we will send a urinalysis/culture. Otherwise continue rest of supportive care and treatment. Further clinical management per clinical course. Plan discussed with: Daughter, Other My Orders Orders - ELAINA GUILLAUME MD Procedure Category Date Status Time Lactic Acid W/ Reflex LAB 11/30/24 In Process Order 15:04 Losartan Tablet PHA 12/01/24 Logged (Cozaar Tablet) 10:00 Urine Bacterial RANDELL 11/30/24 Logged Culture 16:08 Furosemide Injection PHA 12/01/24 Logged (Lasix Injection) 10:00 Furosemide Injection PHA 11/30/24 Logged (Lasix Injection) 16:15 *Consult CONS 11/30/24 Transmitted 16:08 Basic Metabolic Panel LAB 12/01/24 Verified 04:00 Complete Blood Count LAB 12/01/24 Verified 04:00 * Orthopedic Consult CONS 11/30/24 Transmitted 16:13 Date of Service: Nov 30, 2024 Billing Provider: ELAINA GUILLAUME MD Common Visit Codes: [id number] INP/OBS CARE(MOD) ELAINA GUILLAUME MD Nov 30, 2024 16:16
--- NOTE | 2024-11-30 18:56 | DVHSR ---
APPROVED REPORT EXAM: Two-dimensional and M-mode echocardiogram with Doppler and color Doppler. Blood Pressure: 130/71 mmHg INDICATION Chest Pain RISK FACTORS Height: 5', Weight: 176 DIMENSIONS LVDd5.1 (3.8-5.7cm)LA (2D)3.8 (1.9-4.0cm)Aortic Root3.0 (2.0-3.7cm) LVDs4.0 (2.5-4.0cm)LA (MM) (1.9-4.0cm)Aortic Cusp Exc1.6 (1.5-2.0cm) EF (%) 45.0 (55-70%)Rt. Atrium (1.9-4.0cm)Asc. Aorta cm IVSd1.0 (0.7-1.1cm)RV (D) (1.8-2.4cm) Mitral Valve MitralMitral Stenosis E wave0.81m/sMV Mean GR.mmHg A wave1.16m/sMV Peak GR.mmHg E/A ratio0.72D MVAcm2 DECEL [id number] 1/2 Timems Aortic Valve Aortic ValveAortic Stenosis V10.94m/Leonor Mean GR.6mmHg V21.62m/Leonor Peak GR.10mmHg LVOT Diameter1.9 (1.8-2.4cm)Doppler AVA1.64cm2 Pulmonic Valve V21.07m/s Other Information Quality : Technically LimitedRhythm : Technically limited study due to body habitus and patient position. Conclusion MILD LVH AND MILD LV DIASTOLIC DYSFUNCTION LV EF IS IN RANGE OF 55% NORMAL VALVES NO EFFUSION NORMAL RV FUNCTION
--- NOTE | 2024-11-30 22:27 | DVHINCON2 ---
Date Seen: Nov 30, 2024 Referring Physician MD Seymour Reason for Consultation Chest discomfort, history of stents History of Present Illness This is a [place]an-speaking 74-year-old female patient with a PMH of coronary artery disease status post multiple PTCA's X 4 LITA (on ASA), myocardial infa rction, hypertension, dyslipidemia, and obesity who presents to emergency room with chief complaint of generalized weakness and bilateral lower extremity pain for one week prior to emergency room arrival. Patient also stated that she was experiencing chills on the day of admission. Cardiology has been consulted at this time for chest discomfort. The patient does report she has been experiencing chest discomfort for approximately three days. She describes it as unprovoked, intermittent, substernal pressure-like in nature, and nonradiating. Initial twelve lead electrocardiogram in the emergency room reveals normal sinus rhythm with Q-waves seen in anterior leads. Initial troponin level of 971ng/L with down trend thereafter. A repeat twelve lead electrocardiogram was done on the telemetry floor and reveals sinus tachycardia with ST segment changes to lateral leads. The patient follows up with a [facility] in [place], [place]. Past Medical History Past medical history reviewed. No other significant than mentioned above. Past Surgical History Right knee arthroplasty Multiple PTCAs Family History: Patient reports no known family medical history. Allergies: Coded Allergies: Oatmeal (Verified Allergy, Severe, 11/29/24) Pt states she is allergic and if she eats it her throat closes up. Soy Allergy (Obsolete) (Verified Allergy, Severe, 11/29/24) Pt states shes allergic to soy if she does eat it, it closes up her throat. Codeine (Verified Allergy, Unknown, 07/11/18) Milk-related Compounds (Verified Allergy, Unknown, 07/13/18) Uncoded Allergies: PEAS (Allergy, Unknown, 11/30/24) Home Meds Reported Medications Aspirin (Aspirin) 81 Mg Chw, 1 TAB PO BID for 30 Days, #60 11/29/24 Pantoprazole Sodium Sesquihydr (Pantoprazole Sodium) 40 Mg Tab, 20 MG PO DAILY PRN for 90 Days, #90 11/29/24 Metoprolol Succinate (Metoprolol Succinate Er) 50 Mg Tab, 1 TAB PO DAILY for 60 Days, #60 9/22/25 Ibuprofen Micronized (Ibuprofen) 800 Mg Tab, 1 TAB PO DAILY for 60 Days, #60 11/29/24 Docusate Sodium (Docusate Sodium) 100 Mg Cap, 1 CAP PO BID PRN for 30 Days, #60 11/29/24 Losartan Potassium & Hydrochlo (Losartan Potassium/Hydroc) 1 Tab Tab, 1 TAB PO DAILY for 90 Days, #90 [LOSARTAN/HCTZ 100/25 MG] 11/29/24 Current Medications Current Medications Medications (Trade) Dose Ordered Sig/Mike Route PRN Reason Start Time Stop Time Status Last Admin Aspirin 81 mg DAILY PO 11/30/24 10:00 11/30/24 10:42 Atorvastatin Calcium (Lipitor) 40 mg HS PO 11/29/24 22:00 11/29/24 21:21 Piperacillin Sod/ Tazobactam Sod 100 ml @ 25 mls/hr Q8HR IV 11/30/24 06:00 11/30/24 05:55 Losartan Potassium (Cozaar Tablet) 50 mg DAILY PO 12/01/24 10:00 Furosemide (Lasix Injection) 20 mg DAILY IV 12/01/24 10:00 Review of Systems Constitutional: Generalized weakness Ears, Nose, & Throat: No symptom reported Eyes: No symptom reported Neurological: No symptoms reported Pulmonary/Respiratory: No symptoms reported Cardiovascular: No symptom reported Gastrointestinal: No symptom reported Genitourinary: No symptom reported Musculoskeletal: Bilateral lower extremity pain Skin: No symptom reported Psychiatric: No symptom reported Endocrine: No symptom reported Hematologic/Lymphatic: No symptom reported Vital Signs Vital Signs Date Time Temp Pulse Resp B/P (MAP) Pulse Ox O2 Delivery O2 Flow Rate FiO2 11/30/24 21:00 98.2 90 18 112/64 (80) 96 98.2 11/30/24 19:13 Nasal Cannula 3.0 11/30/24 19:13 32 Physical Exam GENERAL: Alert and oriented x 3. No acute distress. Obese. EYES: PERRL, EOMI. Anicteric. HENT: Moist mucous membranes. LUNGS: Clear to auscultation bilaterally. CARDIOVASCULAR: Regular rate and rhythm. ABDOMEN: Soft, non-tender and non-distended. EXTREMITIES: Nonpitting edema to bilateral lower legs. NEUROLOGIC: No focal neurological deficits. SKIN: Warm, dry. Labs/Diagnostic Data Labs Test 11/30/24 20:03 11/30/24 15:33 11/30/24 05:20 11/30/24 04:00 Range/Units Troponin I High Sensitivity 479 *H </=34 ng/L Lactic Acid Level 1.8 0.4-2.0 mmol/L White Blood Count 10.7 4.4-10.8 10^3/uL Red Blood Count 3.66 L 4.0-5.20 10^6/uL Hemoglobin 11.9 L 12.2-16.2 g/dL Hematocrit 34.4 L 36.0-46.0 % Mean Corpuscular Volume 94.0 80.0-100.0 fL Mean Corpuscular Hemoglobin 32.6 H 28.0-32.0 pg Mean Corpuscular Hemoglobin Concent 34.7 32.0-36.0 g/dL Red Cell Distribution Width 14.6 H 11.8-14.3 % Platelet Count 60 L 140-450 10^3/uL Mean Platelet Volume 11.6 H 6.9-10.8 fL Neutrophils (%) (Auto) 82.3 H 37.0-80.0 % Lymphocytes (%) (Auto) 8.8 L 10.0-50.0 % Monocytes (%) (Auto) 8.3 0.0-12.0 % Eosinophils (%) (Auto) 0.4 0.0-7.0 % Basophils (%) (Auto) 0.2 0.0-2.0 % Neutrophils # (Auto) 8.8 H 1.6-8.6 10 ^3/uL Lymphocytes # (Auto) 0.9 0.4-5.4 10 ^3/uL Monocytes # (Auto) 0.9 0-1.3 10 ^3/uL Eosinophils # (Auto) 0 0-0.8 10 ^3/uL Basophils # (Auto) 0 0-0.2 10 ^3/uL Nucleated Red Blood Cells 0.0 % Sodium Level 130 L 136-145 mmol/L Potassium Level 4.1 3.5-5.1 mmol/L Chloride Level 96 L 98-107 mmol/L Carbon Dioxide Level 22 20-31 mmol/L Anion Gap 12 5-15 Blood Urea Nitrogen 43 H 9-23 mg/dL Creatinine 1.12 H 0.550-1.02 mg/dL Glomerular Filtration Rate Calc 51 >90 mL/min BUN/Creatinine Ratio 38.4 H 10.0-20.0 Serum Glucose 120 H 74-106 mg/dL Hemoglobin A1c 5.8 H <5.7 % A1C Calcium Level 7.6 L 8.7-10.4 mg/dL Magnesium Level 2.2 1.6-2.6 mg/dL Total Bilirubin 1.3 H 0.2-1.0 mg/dL Aspartate Amino Transferase (AST) 36 13-40 U/L Alanine Aminotransferase (ALT) 34 7-40 U/L Alkaline Phosphatase 198 H 46-116 U/L Lactate Dehydrogenase 352 H 120-246 U/L Total Protein 6.1 5.7-8.2 g/dL Albumin 3.2 3.2-4.8 g/dL Triglycerides Level 217 H < 150 mg/dL Cholesterol Level 126 < 200 mg/dL LDL Cholesterol 73 < 100 mg/dL HDL Cholesterol 7 L 40-59 mg/dL Thyroid Stimulating Hormone (TSH) 4.09 0.55-4.78 uIU/mL Influenza Type A Antigen Negative Negative Influenza Type B Antigen Negative Negative SARS-CoV-2 Antigen (Rapid) Negative NEGATIVE Test 11/29/24 15:43 11/28/24 04:53 11/27/24 04:56 11/25/24 15:10 Range/Units POC Glucose 84 70-106 mg/dl Differential Total Cells Counted 100.0 100 Neutrophils % (Manual) 77 37.0-80.0 Band Neutrophils % (Manual) 1 Lymphocytes % (Manual) 19 10.0-50.0 Monocytes % (Manual) 1 0-12 Eosinophils % (Manual) 0 0-7 Basophils % (Manual) 0 0.0-2.0 Metamyelocytes % (manual) 1 Myelocytes % (Manual) 1 Promyelocytes % (Manual) 0 Blast Cells % (Manual) 0 Reactive Lymphocytes 0 Platelet Estimate Decreased Clumped Platelets Few Anisocytosis (manual) Slight D-Dimer, Quantitative 34.11 H 0.0-0.49 mg/L FEU Microbiology Date/Time Source Procedure Growth Status 11/29/24 16:25 Blood Blood Culture - Preliminary Resulted Assessment NSTEMI. Rule out structural heart disease. Coronary artery disease s/p PTCA's X 4 LITA (on ASA). Hypertension. Dyslipidemia. Thrombocytopenia. Bacteremia. Obesity. Plan/Recommendation I agree with your ongoing assessment and care of plan. Patient has been seen by Rebecca Kahn NP on my behalf. We have discussed the plan with the patient. We will proceed with obtaining a transthoracic echocardiogram to evaluate cardiac function. Elevated troponin level noted. Possibly demand mismatch ischemia in the setting of sepsis/bacteremia as patient has positive preliminary blood cultures. A t this time, the patient has a low platelet count. Consider outpatient ischemic workup. In the meantime, continue with single antiplatelet therapy (closely monitor platelet count) and lipid-lowering agent. Antibiotics per primary care team. Additional plan as per the hospital course. Plan discussed with: Patient NYHA Physical activity limitations: NA Date of Service: Nov 30, 2024 Billing Provider: NOLVIA CASTRO MD Cardiology Common Codes: [id number] INP/OBS CARE (High) Cardiology Consultation Codes: [id number] CONSULT <45MIN NOLVIA CASTRO MD Nov 30, 2024 22:26
--- NOTE | 2024-11-30 23:03 | DVHINCON2 ---
Date Seen: Nov 30, [address] Rodriguez Reason for Consultation Acute hypoxic respiratory failure and pneumonia. History of Present Illness A 74-year-old woman with past medical history of hypertension who presented to ED via EMS on 11/25/24 with c/o lower extremity pain. Patient reported right knee and left leg pain following right knee surgery on 10/27/24 at [facility] in [place]. Patient relates that during the procedure, she received an epidural which failed and had to receive general anesthesia as a result. Following the procedure, patient endorses being unable to move or bear weight on to her legs. Patient has a dry, well-healing incision to her right knee. Patient denied fever, chills, nausea, vomiting, or other acute complaints. Patient was admitted for further care. Pulmonary consultation is requested for evaluation and management due to acute hypoxic respiratory failure and pneumonia. Review of Systems: 14-point review of systems negative unless otherwise noted above. Past Medical History: Hypertension Past Surgical History: Medications: Reviewed. Allergies: Codeine Milk-related compounds Soy Oatmeal Family History: No family history of premature CAD. No family history of lung disorders. Social History: Nonsmoker. No alcohol or illicit drug use. Family History: Patient reports no known family medical history. Allergies: Coded Allergies: Oatmeal (Verified Allergy, Severe, 11/29/24) Pt states she is allergic and if she eats it her throat closes up. Soy Allergy (Obsolete) (Verified Allergy, Severe, 11/29/24) Pt states shes allergic to soy if she does eat it, it closes up her throat. Codeine (Verified Allergy, Unknown, 07/11/18) Milk-related Compounds (Verified Allergy, Unknown, 07/13/18) Uncoded Allergies: PEAS (Allergy, Unknown, 11/30/24) Home Meds Reported Medications Aspirin (Aspirin) 81 Mg Chw, 1 TAB PO BID for 30 Days, #60 11/29/24 Pantoprazole Sodium Sesquihydr (Pantoprazole Sodium) 40 Mg Tab, 20 MG PO DAILY PRN for 90 Days, #90 11/29/24 Metoprolol Succinate (Metoprolol Succinate Er) 50 Mg Tab, 1 TAB PO DAILY for 60 Days, #60 11/29/24 Ibuprofen Micronized (Ibuprofen) 800 Mg Tab, 1 TAB PO DAILY for 60 Days, #60 11/29/24 Docusate Sodium (Docusate Sodium) 100 Mg Cap, 1 CAP PO BID PRN for 30 Days, #60 11/29/24 Losartan Potassium & Hydrochlo (Losartan Potassium/Hydroc) 1 Tab Tab, 1 TAB PO DAILY for 90 Days, #90 [LOSARTAN/HCTZ 100/25 MG] 11/29/24 Current Medications Current Medications Medications (Trade) Dose Ordered Sig/Mike Route PRN Reason Start Time Stop Time Status Last Admin Aspirin 81 mg DAILY PO 11/30/24 10:00 11/30/24 10:42 Piperacillin Sod/ Tazobactam Sod 100 ml @ 25 mls/hr Q8HR IV 11/30/24 06:00 11/30/24 22:04 Losartan Potassium (Cozaar Tablet) 50 mg DAILY PO 12/01/24 10:00 Furosemide (Lasix Injection) 20 mg DAILY IV 12/01/24 10:00 Vital Signs Vital Signs Date Time Temp Pulse Resp B/P (MAP) Pulse Ox O2 Delivery O2 Flow Rate FiO2 11/30/24 21:00 98.2 90 18 112/64 (80) 96 98.2 11/30/24 19:13 Nasal Cannula 3.0 11/30/24 19:13 32 Physical Exam Gen.: Patient lying in bed in no apparent distress. On supplemental oxygen. Head: Normocephalic, atraumatic. Eyes: EOMI/PERRLA. Ears: Normal hearing. Normal anatomy. Neck/trachea: Trachea midline, supple. Nose: Normal external anatomy. Mouth: Moist mucous membranes. Chest: Decreased air entry bilaterally. Wheezing present. No rhonchi. Cardiovascular: Positive S1, positive S2. Regular rate and rhythm. Abdomen: Positive bowel sounds in all 4 quadrants. Soft, non-tender, non- distended. : Deferred. Rectal: Deferred. Skin: Warm, dry. Intact. Extremities: 2+ radial pulses bilaterally. No lower extremity edema. Neuro: Awake, alert, oriented x3. No gross motor or sensory deficits. Cranial nerves II through XII intact. Gait not assessed. Labs/Diagnostic Data Labs Test 11/30/24 20:03 11/30/24 15:33 11/30/24 05:20 11/30/24 04:00 Range/Units Troponin I High Sensitivity 479 *H </=34 ng/L Lactic Acid Level 1.8 0.4-2.0 mmol/L White Blood Count 10.7 4.4-10.8 10^3/uL Red Blood Count 3.66 L 4.0-5.20 10^6/uL Hemoglobin 11.9 L 12.2-16.2 g/dL Hematocrit 34.4 L 36.0-46.0 % Mean Corpuscular Volume 94.0 80.0-100.0 fL Mean Corpuscular Hemoglobin 32.6 H 28.0-32.0 pg Mean Corpuscular Hemoglobin Concent 34.7 32.0-36.0 g/dL Red Cell Distribution Width 14.6 H 11.8-14.3 % Platelet Count 60 L 140-450 10^3/uL Mean Platelet Volume 11.6 H 6.9-10.8 fL Neutrophils (%) (Auto) 82.3 H 37.0-80.0 % Lymphocytes (%) (Auto) 8.8 L 10.0-50.0 % Monocytes (%) (Auto) 8.3 0.0-12.0 % Eosinophils (%) (Auto) 0.4 0.0-7.0 % Basophils (%) (Auto) 0.2 0.0-2.0 % Neutrophils # (Auto) 8.8 H 1.6-8.6 10 ^3/uL Lymphocytes # (Auto) 0.9 0.4-5.4 10 ^3/uL Monocytes # (Auto) 0.9 0-1.3 10 ^3/uL Eosinophils # (Auto) 0 0-0.8 10 ^3/uL Basophils # (Auto) 0 0-0.2 10 ^3/uL Nucleated Red Blood Cells 0.0 % Sodium Level 130 L 136-145 mmol/L Potassium Level 4.1 3.5-5.1 mmol/L Chloride Level 96 L 98-107 mmol/L Carbon Dioxide Level 22 20-31 mmol/L Anion Gap 12 5-15 Blood Urea Nitrogen 43 H 9-23 mg/dL Creatinine 1.12 H 0.550-1.02 mg/dL Glomerular Filtration Rate Calc 51 >90 mL/min BUN/Creatinine Ratio 38.4 H 10.0-20.0 Serum Glucose 120 H 74-106 mg/dL Hemoglobin A1c 5.8 H <5.7 % A1C Calcium Level 7.6 L 8.7-10.4 mg/dL Magnesium Level 2.2 1.6-2.6 mg/dL Total Bilirubin 1.3 H 0.2-1.0 mg/dL Aspartate Amino Transferase (AST) 36 13-40 U/L Alanine Aminotransferase (ALT) 34 7-40 U/L Alkaline Phosphatase 198 H 46-116 U/L Lactate Dehydrogenase 352 H 120-246 U/L Total Protein 6.1 5.7-8.2 g/dL Albumin 3.2 3.2-4.8 g/dL Triglycerides Level 217 H < 150 mg/dL Cholesterol Level 126 < 200 mg/dL LDL Cholesterol 73 < 100 mg/dL HDL Cholesterol 7 L 40-59 mg/dL Thyroid Stimulating Hormone (TSH) 4.09 0.55-4.78 uIU/mL Influenza Type A Antigen Negative Negative Influenza Type B Antigen Negative Negative SARS-CoV-2 Antigen (Rapid) Negative NEGATIVE Test 11/29/24 15:43 11/28/24 04:53 11/27/24 04:56 11/25/24 15:10 Range/Units POC Glucose 84 70-106 mg/dl Differential Total Cells Counted 100.0 100 Neutrophils % (Manual) 77 37.0-80.0 Band Neutrophils % (Manual) 1 Lymphocytes % (Manual) 19 10.0-50.0 Monocytes % (Manual) 1 0-12 Eosinophils % (Manual) 0 0-7 Basophils % (Manual) 0 0.0-2.0 Metamyelocytes % (manual) 1 Myelocytes % (Manual) 1 Promyelocytes % (Manual) 0 Blast Cells % (Manual) 0 Reactive Lymphocytes 0 Platelet Estimate Decreased Clumped Platelets Few Anisocytosis (manual) Slight D-Dimer, Quantitative 34.11 H 0.0-0.49 mg/L FEU Microbiology Date/Time Source Procedure Growth Status 11/29/24 16:25 Blood Blood Culture - Preliminary Resulted Assessment Impression: Acute hypoxic respiratory failure Dependence on supplemental oxygen Pneumonia, likely gram negative Pleural effusion Atelectasis Elevated D-dimer. Ruled out PE/DVT. Wheezing Obesity, BMI 34.4 Plan: Supplemental oxygen Currently on 4 LPM NC Titrate to keep O2 sats above 92%. Taper O2 as tolerated. CXR reviewed, notable for pulmonary vascular congestion, bilateral airspace opacities. Small bilateral pleural effusions present. RLE venous Doppler revealed no DVT. Elevated troponin - Cardiology recs appreciated. Echo revealed EF of 55%; mild LVH; mild diastolic dysfunction. Continue bronchodilators. Continue antibiotics WBC of 10.7 K. Follow up cultures Blood cx positive for GNRs. Viral panel negative. Incentive spirometry Monitor hemoglobin - 11.9 g/dL Transfuse if less than 7.0 g/dL. Follow up Ortho recommendations Diurese to euvolemia w/ Lasix Monitor renal function. Monitor electrolytes. Supplement as necessary. Monitor ins and outs. Diet and lifestyle modifications for weight reduction Obesity complicates all care GI prophylaxis - Protonix DVT prophylaxis - Lovenox. Prognosis: Poor given patient's multiple co-morbidities. Rest of plan per hospitalist and other consultants. Thank you, Dr. Rodriguez, for allowing me to participate in this patient's care. Further recommendations will depend on the patient's clinical course. Please do not hesitate to contact me if you have any questions or concerns. This medical document was created using an electronic medical record system with [employer] computerized dictation system. Although these documentations are being carefully reviewed, there may still be some phonetic and typographical changes. The errors are purely typographical, due to imperfection on the software program, and do not reflect any compromise in the patient's medical care. Plan discussed with: Patient, Other (DESIRE Singh/Dr. Rodriguez) Date of Service: Nov 30, 2024 Billing Provider: SHAWN HOUSE MD Common Visit Codes: [id number] INP/OBS CARE (HIGH) SHAWN HOUSE MD Nov 30, 2024 23:03
[2024-12-01] VITALS (11 sets, daily range): BP systolic 104–140; BP diastolic 60–88; PULSE 80–98; RESP 16–19; TEMP 98–99.1; O2SAT 94–99
--- NOTE | 2024-12-01 07:23 | ECG ---
[facility] Test Date: 2024-11-29 Test Time: 15:50:30 Pat Name: ONESIMO FAULKNER Department: Respiratoy Room: [facility]T A Gender: F Mascara Molder: EDNA : 1950 Requested By: FELECIA VALENCIA Order Number: [id number] Reading MD: Andres Quezada Measurements Intervals [place] Rate: 113 P: 39 HI: 135 QRS: -27 QRSD: 89 T: 103 QT: 312 QTc: 428 Interpretive Statements Sinus tachycardia Probable left atrial enlargement Inferior infarct, old Lateral leads are also involved Electronically Signed On 12-07-2024 21:33:24 PDT by Andres Quezada Please click the below link to view image of tracing.
[2024-12-01 07:49] LABS: Anion Gap 10 (5-15); Carbon Dioxide 24 mmol/L (20-31); Chloride 101 mmol/L (98-107); Hematocrit 32.3 % (36.0-46.0); Hemoglobin 11.1 g/dL (12.2-16.2); Mean Corpuscular Hemoglobin 32.3 pg (28.0-32.0); Mean Corpuscular Volume 94.4 fL (80.0-100.0); Nucleated Red Blood Cells % 0.1 %; Potassium 3.9 mmol/L (3.5-5.1)
[2024-12-01 07:56] LABS: BUN/Creatinine Ratio 46.1 (10.0-20.0)
[2024-12-01 07:58] LABS: Blood Urea Nitrogen 41 mg/dL (9-23); Calcium 7.6 mg/dL (8.7-10.4); Glucose 113 mg/dL (74-106); Sodium 135 mmol/L (136-145)
[2024-12-01] MEDS: LOSARTAN POTASSIUM 50 MG TAB PO SCH (09:49)
[2024-12-01] MEDS: FUROSEMIDE 20 MG/2 ML VIAL IV SCH (09:50)
--- NOTE | 2024-12-01 16:34 | DVHINCON2 ---
Consult Note Consult Consult Note History of Present Illness (HPI): Ms. Patricia Brennan is an inpatient admitted through the ER for concern of bacteremia. I was advised consult is to eval her right knee pain. She underwent a right total knee arthroplasty (TKA) 10/27/2024. she received right knee surgery at [facility] in [place]. today on my interview, pt in no distress, Patient denies any right knee pain, swelling, or mechanical symptoms. No fever or chills reported. No changes in apeptite. Pt states no fall, slip, catching , locking , instablity. No numbess, tingling or other conerns reported. Does report left hip pain lateral aspect, Chronic with no new changes.left hip pain is 3-4/10 with activity. Pt was resting in bed during my interview. Past Surgical History: Right TKA,10/27/2024 Physical Exam: General: Alert, in no acute distress. Right Knee: Incision well-healed. No erythema, warmth, or drainage. No edema or effusion appreciated. Range of motion: 0110, pain-free. No tenderness with palpation. Neurovascular exam intact distally. left hip no groin pain Mild Pos Deven Fadir Gross ROM intact TTP GT aspect N/V intact otherwise Imaging: X-ray Right Knee: No evidence of periprosthetic fracture, no hardware loosening, no effusion. Hardware appears intact and in good alignment. Assessment: Ms. Brennan evaluated for right knee pain as requested by Hospitalist team. Hx of R TKA Approx 4 weeks from Surgery. Examination and radiographs show a well-healed right TKA without evidence of periprosthetic fracture, hardware loosening, effusion, or infection at this time. Plan: RECS FOR MEDICINE/HOSPITALIST TEAM 1. Left hip Xray , Consult Ortho if concern for fracture or other left hip findings. 2. No evidence of periprosthetic fracture or right knee infection at this time. No acute orthopedic intervention required. Hospitalist team to place Physical therapy for right knee ROM and to make sure patient is WBAT with no new concerns ,Reconsult Ortho if needed. 3. If patient develops new right knee pain, swelling, erythema, warmth, or limited ROM, please re-consult orthopedics. 4. ESR/CRP trending may be considered by medicine team if further infectious concern arises and ortho reconsulted 5. Continue medical management of other concerns 6. if no further right knee concerns patient to followup w/ Operating Orthopedics surgeon [place] post discharge for further eval and treatment. 7. For left hip GT Bursitis patient can followup as outpatient with [facility] Ortho Plan discussed with: Patient, Other (bedside nurse) Visit Coding Surgery Date of Service if different f: Dec 01, 2024 Billing Provider: JINA VILLEDA Surgery Visit Codes: 49949 - INP CONSULT <55 MIN JINA VILLEDA Dec 01, 2024 16:34
--- NOTE | 2024-12-01 17:03 | DVHPN2 ---
Subjective She is alert awake oriented to place and person comfortable in bed. Family at bedside. Complains of sores in her mouth with some discomfort Reviewed: Care Plan, H&P, Labs, Medications, Previous Orders, Radiology Changes from previous H/P or p: No Changes Objective Vitals Vital Signs Date Time Temp Pulse Resp B/P (MAP) Pulse Ox O2 Delivery O2 Flow Rate FiO2 12/01/24 12:35 99.1 90 16 104/60 (75) 95 99.1 12/01/24 10:00 Nasal Cannula 2.0 12/01/24 10:00 28 Intake/Output Intake and Output 12/01/24 07:00 Intake Total 1000 ml Balance 1000 ml Intake Oral 1000 ml # Voids 4 General Appearance: Alert, Oriented X3, Cooperative, moderate distress HEENT: Atraumatic Neck: Supple Lungs: Other (Decreased air entry bilaterally with severe expiratory wheezing) Cardiovascular: Normal S1, Normal S2, Other (Tachycardia) Abdomen: Normal bowel sounds, Soft, No tenderness Extremities: No edema Neuro: Normal speech, Cranial nerves 3-12 NL Psych/Mental Status: Mental status NL, Mood NL Medications Current Medications Medications Dose Ordered Sig/Mike Route Start Time Stop Time Status Last Admin Dose Admin Sodium Chloride 10 ml Q8HR IV 11/25/24 22:00 12/01/24 13:49 10 ML Docusate Sodium 100 mg BIDPRN PRN PO 11/25/24 18:45 Acetaminophen 650 mg Q6HP PRN PO 11/25/24 18:45 12/01/24 09:57 650 MG Acetaminophen/ Hydrocodone Bitart 1 tab Q4HP PRN PO 11/25/24 18:45 11/29/24 01:54 1 TAB Ondansetron HCl 4 mg Q4HP PRN IV 11/25/24 18:45 Morphine Sulfate 2 mg Q4HPRN PRN IV 11/25/24 18:45 11/28/24 09:11 2 MG Enoxaparin Sodium 40 mg DAILY SC 11/26/24 10:00 11/28/24 09:10 40 MG Pantoprazole Sodium 40 mg DAILY@0700 PO 11/26/24 07:00 12/01/24 06:17 40 MG Levalbuterol HCl 1.25 mg Q4HPRN PRN NEB 11/29/24 16:00 11/29/24 16:33 1.25 MG Aspirin 81 mg DAILY PO 11/30/24 10:00 12/01/24 09:50 81 MG Atorvastatin Calcium 40 mg HS PO 11/29/24 22:00 11/30/24 22:04 40 MG Piperacillin Sod/ Tazobactam Sod 100 ml @ 25 mls/hr Q8HR IV 11/30/24 06:00 12/01/24 14:51 25 MLS/HR Losartan Potassium 50 mg DAILY PO 12/01/24 10:00 12/01/24 09:49 50 MG Furosemide 20 mg DAILY IV 12/01/24 10:00 12/01/24 09:50 20 MG Nystatin 5 ml QID MT 12/01/24 18:00 UNV Laboratory Results Laboratory Tests 12/01/24 06:41 Chemistry Test 12/01/24 06:41 Calcium Level 7.6 mg/dL (8.7-10.4) L Microbiology Microbiology Date/Time Source Procedure Growth Status 11/29/24 16:25 Blood Blood Culture - Preliminary Resulted Assessment/Plan Assessment/Plan Gram-negative bacteremia Acute hypoxic respiratory failure due to pulmonary congestion and suspected pneumonia Chest discomfort; to rule out ACS NSTEMI; elevated troponin Elevated D-dimer; PE and DVT ruled out Episodic wheezing with tachycardia Hypertensive heart disease without heart failure Physical deconditioning due to above Thrombocytopenia; unclear etiology Obesity Transfer to telemetry; reviewed EKG that showed no ST-elevation; ordered troponin that came back elevated Cardiology consulted Started aspirin and statin but aspirin was not given due to thrombocytopenia Started on nebulizers Continue oxygen therapy as indicated Started IV antibiotics Instrument Inspector consulted for SNF placement for rehab as per Physical Therapy recommendations when medically stable Counseled the patient importance of adopting healthy lifestyle with diet and exercise in order to lose weight Continue antihypertensive medication/s and adjust according to blood pressure monitoring Reviewed previous imaging studies including chest angiogram Reviewed the available lab work Ordered echocardiogram; reviewed old echocardiogram from 2021 that showed no wall abnormalities and no heart failure Ordered blood and urine cultures Continue close monitoring Patient's daughter is at bedside and discussed with the her regarding care plan. Given the mouth sores I will add nystatin swish and swallow. Patient has a Gram-negative bacteremia however source is unclear at present. We will try to straight cath her and get urinalysis and urine culture today. Otherwise continue current antibiotics. Continue rest of supportive care and treatment as she is on. Further clinical management per clinical course and pending echocardiogram results. Plan discussed with: Patient, Daughter My Orders Orders - ELAINA GUILLAUME MD Procedure Category Date Status Time * Wound Consult CONS 11/30/24 Transmitted Nystatin PHA 12/01/24 Logged (Mouth-Throat) 18:00 Straight Cath Patient ORDERS 12/01/24 Transmitted 16:44 Date of Service: Dec 01, 2024 Billing Provider: ELAINA GUILLAUME MD Common Visit Codes: [id number] INP/OBS CARE(MOD) ELAINA GUILLAUME MD Dec 01, 2024 17:03
[2024-12-01] MEDS: NYSTATIN (MOUTH-THROAT) 500,000 UNITS/5 ML SUSP MT SCH (19:05)
--- NOTE | 2024-12-01 22:14 | DVHPN2 ---
Progress Note - Dictate Date Seen: Dec 01, 2024 Medical Necessity Reason Pt with a Central, PICC or Fol: No Subjective Patient was seen and evaluated in follow up. Patient is on 2 LPM NC. Patient's family is present at bedside. Patient is complaining of oral discomfort due to sores. BUN 41, TROP 451. Telemetry reviewed. vital signs Vital Sign Date Time Temp Pulse Resp B/P (MAP) Pulse Ox O2 Delivery O2 Flow Rate FiO2 12/01/24 17:00 98.7 94 16 140/88 (105) 94 98.7 12/01/24 10:00 Nasal Cannula 2.0 12/01/24 10:00 28 Total Intake and Output 11/30/24 11/30/24 12/01/24 15:00 23:00 07:00 Intake Total 600 ml 400 ml Balance 600 ml 400 ml medications Current Medications Medications Dose Ordered Sig/Mike Route Start Time Stop Time Status Last Admin Dose Admin Sodium Chloride 10 ml Q8HR IV 11/25/24 22:00 12/01/24 13:49 10 ML Docusate Sodium 100 mg BIDPRN PRN PO 11/25/24 18:45 Acetaminophen 650 mg Q6HP PRN PO 11/25/24 18:45 12/01/24 09:57 650 MG Acetaminophen/ Hydrocodone Bitart 1 tab Q4HP PRN PO 11/25/24 18:45 11/29/24 01:54 1 TAB Ondansetron HCl 4 mg Q4HP PRN IV 11/25/24 18:45 Morphine Sulfate 2 mg Q4HPRN PRN IV 11/25/24 18:45 11/28/24 09:11 2 MG Enoxaparin Sodium 40 mg DAILY SC 11/26/24 10:00 11/28/24 09:10 40 MG Pantoprazole Sodium 40 mg DAILY@0700 PO 11/26/24 07:00 12/01/24 06:17 40 MG Levalbuterol HCl 1.25 mg Q4HPRN PRN NEB 11/29/24 16:00 11/29/24 16:33 1.25 MG Aspirin 81 mg DAILY PO 11/30/24 10:00 12/01/24 09:50 81 MG Atorvastatin Calcium 40 mg HS PO 11/29/24 22:00 11/30/24 22:04 40 MG Piperacillin Sod/ Tazobactam Sod 100 ml @ 25 mls/hr Q8HR IV 11/30/24 06:00 12/01/24 14:51 25 MLS/HR Losartan Potassium 50 mg DAILY PO 12/01/24 10:00 12/01/24 09:49 50 MG Furosemide 20 mg DAILY IV 12/01/24 10:00 12/01/24 09:50 20 MG Nystatin 5 ml QID MT 12/01/24 18:00 12/01/24 19:05 5 ML objective GENERAL: Alert and oriented x 3. No acute distress. Obese. EYES: PERRL, EOMI. Anicteric. HENT: Moist mucous membranes. LUNGS: Clear to auscultation bilaterally. CARDIOVASCULAR: Regular rate and rhythm. ABDOMEN: Soft, non-tender and non-distended. EXTREMITIES: Nonpitting edema to bilateral lower legs. NEUROLOGIC: No focal neurological deficits. SKIN: Warm, dry. laboratory and microbiology Laboratory Tests 12/01/24 06:41 Test 12/01/24 06:41 Range/Units Serum Glucose 113 H 74-106 mg/dL Problem List NSTEMI. Rule out structural heart disease. Coronary artery disease s/p PTCA's X 4 LITA (on ASA). Hypertension. Dyslipidemia. Thrombocytopenia. Bacteremia. Obesity. Assessment/Plan Continued all current supportive medical care. [place] for pain management. Aspirin, Lipitor. DVT and GI prophylactics. Diuretics with Lasix. Losartan. IV antibiotics as ordered. Additional plan as per the hospital course. Dietary Evaluation Review Comments: 1) Add cardiac restriction to diet 2) Encourage optimal PO intake 3) Refer to outpatient RD for weight management 4) Follow-up with cardiolgoy and orthopedic surgeon 5) Continue to monitor I&O, labs, and skin integrity Expected Outcomes/Goals: 1) appetite and labs to improve 2) gradual wt loss 3) f/u in 3-5 days Plan discussed with: Patient NOLVIA CASTRO MD Dec 01, 2024 19:51
[2024-12-01] MEDS: SODIUM CHLORIDE 0.9% 1,000 ML IV ONE (23:24)
--- NOTE | 2024-12-01 23:56 | DVHPN2 ---
Subjective DOS: 12/01/2024 Patient seen and examined at bedside. Remains on supplemental oxygen Overnight events reviewed. Reviewed: Care Plan, H&P, Labs, Medications, Previous Orders, Radiology Changes from previous H/P or p: No Changes Objective Vitals Vital Signs Date Time Temp Pulse Resp B/P (MAP) Pulse Ox O2 Delivery O2 Flow Rate FiO2 12/01/24 21:00 99.0 91 19 120/70 (87) 95 99.0 12/01/24 20:00 Nasal Cannula* 2 28 Intake/Output Intake and Output 12/01/24 07:00 Intake Total 1000 ml Balance 1000 ml Intake Oral 1000 ml # Voids 4 General Appearance: Alert, Oriented X3, Cooperative, No acute distress HEENT: Atraumatic Neck: Supple Lungs: Other (Decreased air entry bilaterally with severe expiratory wheezing) Cardiovascular: Normal S1, Normal S2, Other (Tachycardia) Abdomen: Normal bowel sounds, Soft, No tenderness Extremities: No edema Neuro: Normal speech, Cranial nerves 3-12 NL Psych/Mental Status: Mental status NL, Mood NL Medications Current Medications Medications Dose Ordered Sig/Mike Route Start Time Stop Time Status Last Admin Dose Admin Sodium Chloride 10 ml Q8HR IV 11/25/24 22:00 12/01/24 21:10 10 ML Docusate Sodium 100 mg BIDPRN PRN PO 11/25/24 18:45 Acetaminophen 650 mg Q6HP PRN PO 11/25/24 18:45 12/01/24 09:57 650 MG Acetaminophen/ Hydrocodone Bitart 1 tab Q4HP PRN PO 11/25/24 18:45 11/29/24 01:54 1 TAB Ondansetron HCl 4 mg Q4HP PRN IV 11/25/24 18:45 Morphine Sulfate 2 mg Q4HPRN PRN IV 11/25/24 18:45 11/28/24 09:11 2 MG Enoxaparin Sodium 40 mg DAILY SC 11/26/24 10:00 11/28/24 09:10 40 MG Pantoprazole Sodium 40 mg DAILY@0700 PO 11/26/24 07:00 12/01/24 06:17 40 MG Levalbuterol HCl 1.25 mg Q4HPRN PRN NEB 11/29/24 16:00 11/29/24 16:33 1.25 MG Aspirin 81 mg DAILY PO 11/30/24 10:00 12/01/24 09:50 81 MG Atorvastatin Calcium 40 mg HS PO 11/29/24 22:00 12/01/24 21:04 40 MG Piperacillin Sod/ Tazobactam Sod 100 ml @ 25 mls/hr Q8HR IV 11/30/24 06:00 12/01/24 21:54 25 MLS/HR Losartan Potassium 50 mg DAILY PO 12/01/24 10:00 12/01/24 09:49 50 MG Furosemide 20 mg DAILY IV 12/01/24 10:00 12/01/24 09:50 20 MG Nystatin 5 ml QID MT 12/01/24 18:00 12/01/24 21:04 5 ML Laboratory Results Laboratory Tests 12/01/24 06:41 Chemistry Test 12/01/24 06:41 Calcium Level 7.6 mg/dL (8.7-10.4) L Microbiology Microbiology Date/Time Source Procedure Growth Status 11/29/24 16:25 Blood Blood Culture - Preliminary Resulted Assessment/Plan Assessment/Plan Impression: Acute hypoxic respiratory failure Dependence on supplemental oxygen Pneumonia, likely gram negative Pleural effusion Atelectasis Elevated D-dimer. Ruled out PE/DVT. Wheezing Obesity, BMI 34.4 Events: Remains on supplemental oxygen, 2 LPM NC Taper O2 as tolerated Improving oxygen requirements Continue bronchodilators Continue antibiotics Incentive spirometry Diurese to maintain euvolemia Monitor renal function Monitor electrolytes. Supplement as necessary. Labs and imaging reviewed. Rest of plan as noted below. Plan: Supplemental oxygen Titrate to keep O2 sats above 92%. Taper O2 as tolerated. CXR showed pulmonary vascular congestion, bilateral airspace opacities. Small bilateral pleural effusions present. RLE venous Doppler revealed no DVT. Elevated troponin - Cardiology recs appreciated. Echo revealed EF of 55%; mild LVH; mild diastolic dysfunction. Continue bronchodilators. Continue antibiotics Follow up cultures Blood cx positive for GNRs. Viral panel negative. Incentive spirometry Monitor hemoglobin - 11.1 g/dL, stable. Transfuse if less than 7.0 g/dL. Follow up Ortho recommendations Diurese to euvolemia w/ Lasix Monitor renal function. Monitor electrolytes. Supplement as necessary. Monitor ins and outs. Diet and lifestyle modifications for weight reduction Obesity complicates all care GI prophylaxis - Protonix DVT prophylaxis - Lovenox. Prognosis: Poor given patient's multiple co-morbidities. Rest of plan per hospitalist and other consultants. Thank you, Dr. Rodriguez, for allowing me to participate in this patient's care. Further recommendations will depend on the patient's clinical course. Please do not hesitate to contact me if you have any questions or concerns. This medical document was created using an electronic medical record system with [employer] dictation system. Although these documentations are being carefully reviewed, there may still be some phonetic and typographical changes. The errors are purely typographical, due to imperfection on the software program, and do not reflect any compromise in the patient's medical care. Plan discussed with: Patient, Other (RN Emmy) Date of Service: Dec 01, 2024 Billing Provider: SHAWN HOUSE MD Common Visit Codes: [id number] INP/OBS CARE(HIGH) SHAWN HOUSE MD Dec 01, 2024 23:56
[2024-12-02] VITALS (12 sets, daily range): BP systolic 107–133; BP diastolic 63–81; PULSE 77–89; RESP 17–23; TEMP 97.7–98.6; O2SAT 95–99
[2024-12-02 02:45] LABS: Urine Protein, UAD TRACE (Negative)
--- NOTE | 2024-12-02 10:22 | DVHPN2 ---
Subjective The patient is seen and examined at bedside. Complain of severe knee pain. Reviewed: Care Plan, H&P, Labs, Medications, Previous Orders, Radiology Changes from previous H/P or p: No Changes Objective Vitals Vital Signs Date Time Temp Pulse Resp B/P (MAP) Pulse Ox O2 Delivery O2 Flow Rate FiO2 12/02/24 09:46 116/81 12/02/24 09:00 98.1 86 20 96 98.1 12/02/24 07:02 Nasal Cannula* 2 28 Intake/Output Intake and Output 12/02/24 07:00 Intake Total 1470 ml Balance 1470 ml Intake Oral 1270 ml IV Total 200 ml # Voids 9 General Appearance: Alert, Oriented X3, Cooperative, No acute distress HEENT: Atraumatic Neck: Supple Lungs: Other (Decreased air entry bilaterally with severe expiratory wheezing) Cardiovascular: Normal S1, Normal S2, Other (Tachycardia) Abdomen: Normal bowel sounds, Soft, No tenderness Extremities: No edema Neuro: Normal speech, Cranial nerves 3-12 NL Psych/Mental Status: Mental status NL, Mood NL Medications Current Medications Medications Dose Ordered Sig/Mike Route Start Time Stop Time Status Last Admin Dose Admin Sodium Chloride 10 ml Q8HR IV 11/25/24 22:00 12/02/24 06:00 10 ML Docusate Sodium 100 mg BIDPRN PRN PO 11/25/24 18:45 Acetaminophen 650 mg Q6HP PRN PO 11/25/24 18:45 12/01/24 09:57 650 MG Acetaminophen/ Hydrocodone Bitart 1 tab Q4HP PRN PO 11/25/24 18:45 11/29/24 01:54 1 TAB Ondansetron HCl 4 mg Q4HP PRN IV 11/25/24 18:45 Morphine Sulfate 2 mg Q4HPRN PRN IV 11/25/24 18:45 11/28/24 09:11 2 MG Enoxaparin Sodium 40 mg DAILY SC 11/26/24 10:00 12/02/24 09:45 40 MG Pantoprazole Sodium 40 mg DAILY@0700 PO 11/26/24 07:00 12/02/24 06:00 40 MG Levalbuterol HCl 1.25 mg Q4HPRN PRN NEB 11/29/24 16:00 11/29/24 16:33 1.25 MG Aspirin 81 mg DAILY PO 11/30/24 10:00 12/02/24 09:45 81 MG Atorvastatin Calcium 40 mg HS PO 11/29/24 22:00 12/01/24 21:04 40 MG Piperacillin Sod/ Tazobactam Sod 100 ml @ 25 mls/hr Q8HR IV 11/30/24 06:00 12/02/24 06:00 25 MLS/HR Losartan Potassium 50 mg DAILY PO 12/01/24 10:00 12/02/24 09:46 50 MG Furosemide 20 mg DAILY IV 12/01/24 10:00 12/02/24 09:45 20 MG Nystatin 5 ml QID MT 12/01/24 18:00 12/02/24 06:00 5 ML Laboratory Results Laboratory Tests 12/01/24 06:41 Urinalysis Test 12/01/24 02:00 Urine Color Yellow (Yellow) Urine Clarity Turbid (Clear) H Urine pH 5.5 (5.0-9.0) Urine Specific [place] 1.025 (1.001-1.035) Urine Protein Trace (Negative) H Urine Ketones Negative (Negative) Urine Blood 2+ /uL (Negative) H Urine Nitrite Negative (Negative) Urine Bilirubin Negative (Negative) Urine Urobilinogen Normal mg/dL (Negative) Urine Leukocyte Esterase Negative /uL (Negative) Urine RBC 4 /hpf (0 - 4) Urine Microscopic WBC 2 /HPF (0-5) Urine Squamous Epithelial Cells Mod /hpf (<5) Urine Bacteria None seen /hpf (None Seen) Urine Glucose Normal mg/dL (Normal) Microbiology Microbiology Date/Time Source Procedure Growth Status 11/29/24 16:25 Blood Blood Culture - Preliminary Resulted Labs and/or images reviewed: Labs reviewed by me Assessment/Plan Assessment/Plan Gram-negative bacteremia Acute hypoxic respiratory failure due to pulmonary congestion and suspected pneumonia Chest discomfort; to rule out ACS NSTEMI; elevated troponin Elevated D-dimer; PE and DVT ruled out Episodic wheezing with tachycardia Hypertensive heart disease without heart failure Physical deconditioning due to above Thrombocytopenia; unclear etiology Obesity Transfer to telemetry; reviewed EKG that showed no ST-elevation; ordered troponin that came back elevated Cardiology consulted Started aspirin and statin but aspirin was not given due to thrombocytopenia Started on nebulizers Continue oxygen therapy as indicated Started IV antibiotics Religion Instructor consulted for SNF placement for rehab as per Physical Therapy recommendations when medically stable Counseled the patient importance of adopting healthy lifestyle with diet and exercise in order to lose weight Continue antihypertensive medication/s and adjust according to blood pressure monitoring Reviewed previous imaging studies including chest angiogram Reviewed the available lab work Ordered echocardiogram; reviewed old echocardiogram from 2021 that showed no wall abnormalities and no heart failure Ordered blood and urine cultures, we will continuing to monitor blood culture Continuing with nystatin swish and swallow for mouth sores.Continue current antibiotics. Continue rest of supportive care and treatment as she is on. Further clinical management per clinical course and pending echocardiogram results. This medical document was created using an electronic medical record system with [employer] direct computerized dictation system. Although this document has been carefully reviewed, there may still be some phonetic and typographical errors. These areas are purely typographical due to imperfections of the software programs, and do not reflect any compromise in the patient's medical care. Plan discussed with: Patient, Other (RN) Date of Service: Dec 02, 2024 Billing Provider: FELECIA VALENCIA MD Common Visit Codes: [id number] INP/OBS CARE(HIGH) FELECIA VALENCIA MD Dec 02, 2024 10:22
--- NOTE | 2024-12-02 23:35 | DVHPN2 ---
Subjective DOS: 12/02/2024 Patient seen and examined at bedside. Remains on supplemental oxygen Overnight events reviewed. Reviewed: Care Plan, H&P, Labs, Medications, Previous Orders, Radiology Changes from previous H/P or p: No Changes Objective Vitals Vital Signs Date Time Temp Pulse Resp B/P (MAP) Pulse Ox O2 Delivery O2 Flow Rate FiO2 12/02/24 21:00 98.2 89 17 133/70 (91) 99 98.2 12/02/24 20:49 Nasal Cannula* 2 28 Intake/Output Intake and Output 12/02/24 07:00 Intake Total 1470 ml Balance 1470 ml Intake Oral 1270 ml IV Total 200 ml # Voids 9 General Appearance: Alert, Oriented X3, Cooperative, No acute distress HEENT: Atraumatic Neck: Supple Lungs: Clear to auscultation, Other (Decreased air entry bilaterally) Cardiovascular: Normal S1, Normal S2, Other (Tachycardia) Abdomen: Normal bowel sounds, Soft, No tenderness Extremities: No edema Neuro: Normal speech, Cranial nerves 3-12 NL Psych/Mental Status: Mental status NL, Mood NL Medications Current Medications Medications Dose Ordered Sig/Mike Route Start Time Stop Time Status Last Admin Dose Admin Sodium Chloride 10 ml Q8HR IV 11/25/24 22:00 12/02/24 21:42 10 ML Docusate Sodium 100 mg BIDPRN PRN PO 11/25/24 18:45 Acetaminophen 650 mg Q6HP PRN PO 11/25/24 18:45 12/02/24 12:24 650 MG Acetaminophen/ Hydrocodone Bitart 1 tab Q4HP PRN PO 11/25/24 18:45 11/29/24 01:54 1 TAB Ondansetron HCl 4 mg Q4HP PRN IV 11/25/24 18:45 Morphine Sulfate 2 mg Q4HPRN PRN IV 11/25/24 18:45 11/28/24 09:11 2 MG Enoxaparin Sodium 40 mg DAILY SC 11/26/24 10:00 12/02/24 09:45 40 MG Pantoprazole Sodium 40 mg DAILY@0700 PO 11/26/24 07:00 12/02/24 06:00 40 MG Levalbuterol HCl 1.25 mg Q4HPRN PRN NEB 11/29/24 16:00 11/29/24 16:33 1.25 MG Aspirin 81 mg DAILY PO 11/30/24 10:00 12/02/24 09:45 81 MG Atorvastatin Calcium 40 mg HS PO 11/29/24 22:00 12/02/24 21:39 40 MG Piperacillin Sod/ Tazobactam Sod 100 ml @ 25 mls/hr Q8HR IV 11/30/24 06:00 12/02/24 21:42 25 MLS/HR Losartan Potassium 50 mg DAILY PO 12/01/24 10:00 12/02/24 09:46 50 MG Furosemide 20 mg DAILY IV 12/01/24 10:00 12/02/24 09:45 20 MG Nystatin 5 ml QID MT 12/01/24 18:00 12/02/24 21:39 5 ML Laboratory Results Laboratory Tests 12/01/24 06:41 Urinalysis Test 12/01/24 02:00 Urine Color Yellow (Yellow) Urine Clarity Turbid (Clear) H Urine pH 5.5 (5.0-9.0) Urine Specific [place] 1.025 (1.001-1.035) Urine Protein Trace (Negative) H Urine Ketones Negative (Negative) Urine Blood 2+ /uL (Negative) H Urine Nitrite Negative (Negative) Urine Bilirubin Negative (Negative) Urine Urobilinogen Normal mg/dL (Negative) Urine Leukocyte Esterase Negative /uL (Negative) Urine RBC 4 /hpf (0 - 4) Urine Microscopic WBC 2 /HPF (0-5) Urine Squamous Epithelial Cells Mod /hpf (<5) Urine Bacteria None seen /hpf (None Seen) Urine Glucose Normal mg/dL (Normal) Microbiology Microbiology Date/Time Source Procedure Growth Status 11/29/24 16:25 Blood Blood Culture - Final Escherichia coli Complete Assessment/Plan Assessment/Plan Impression: Acute hypoxic respiratory failure Dependence on supplemental oxygen Pneumonia, likely gram negative Pleural effusion Atelectasis Elevated D-dimer. Ruled out PE/DVT. Wheezing Obesity, BMI 34.4 Events: Remains on supplemental oxygen, 2 LPM NC Taper O2 as tolerated Improving oxygen requirements Continue bronchodilators Continue antibiotics F/u cultures - bacteremia with E.coli Sensitivities reviewed ID recommendations appreciated. Incentive spirometry Diurese to maintain euvolemia with Lasix q. daily Monitor renal function Monitor electrolytes. Supplement as necessary. Elevated troponin - F/u Cardiology recs Protonix for GI ppx Lovenox for DVT ppx Arranging SNF placement. Labs and imaging reviewed. Rest of plan as noted below. Plan: Supplemental oxygen Titrate to keep O2 sats above 92%. Taper O2 as tolerated. CXR showed pulmonary vascular congestion, bilateral airspace opacities. Small bilateral pleural effusions present. RLE venous Doppler revealed no DVT. Elevated troponin - Cardiology recs appreciated. Echo revealed EF of 55%; mild LVH; mild diastolic dysfunction. Continue bronchodilators. Continue antibiotics Follow up cultures Blood cx positive for GNRs. Viral panel negative. Incentive spirometry Monitor hemoglobin - 11.1 g/dL, stable. Transfuse if less than 7.0 g/dL. Follow up Ortho recommendations Diurese to euvolemia w/ Lasix Monitor renal function. Monitor electrolytes. Supplement as necessary. Monitor ins and outs. Diet and lifestyle modifications for weight reduction Obesity complicates all care GI prophylaxis - Protonix DVT prophylaxis - Lovenox. Prognosis: Poor given patient's multiple co-morbidities. Rest of plan per hospitalist and other consultants. Thank you, Dr. Rodriguez, for allowing me to participate in this patient's care. Further recommendations will depend on the patient's clinical course. Please do not hesitate to contact me if you have any questions or concerns. This medical document was created using an electronic medical record system with [employer] computerized dictation system. Although these documentations are being carefully reviewed, there may still be some phonetic and typographical changes. The errors are purely typographical, due to imperfection on the software program, and do not reflect any compromise in the patient's medical care. Plan discussed with: Patient, Other (DESIRE Jay) Date of Service: Dec 02, 2024 Billing Provider: SHAWN HOUSE MD Common Visit Codes: [id number] INP/OBS CARE(HIGH) SHAWN HOUSE MD Dec 02, 2024 23:35
--- NOTE | 2024-12-02 23:54 | DVHPN2 ---
Progress Note - Dictate Date Seen: Dec 02, 2024 Medical Necessity Reason Pt with a Central, PICC or Fol: No Subjective Patient was seen and evaluated in follow up. Patient is on 2 LPM NC. Patient complaining of 10/10 knee pain. CM is arranging SNF placement. Telemetry reviewed. vital signs Vital Sign Date Time Temp Pulse Resp B/P (MAP) Pulse Ox O2 Delivery O2 Flow Rate FiO2 12/02/24 10:00 95 Nasal Cannula 2.0 12/02/24 10:00 28 12/02/24 09:46 116/81 12/02/24 09:00 98.1 86 20 98.1 Total Intake and Output 12/01/24 12/01/24 12/02/24 15:00 23:00 07:00 Intake Total 100 ml 995 ml 375 ml Balance 100 ml 995 ml 375 ml medications Current Medications Medications Dose Ordered Sig/Mike Route Start Time Stop Time Status Last Admin Dose Admin Sodium Chloride 10 ml Q8HR IV 11/25/24 22:00 12/02/24 06:00 10 ML Docusate Sodium 100 mg BIDPRN PRN PO 11/25/24 18:45 Acetaminophen 650 mg Q6HP PRN PO 11/25/24 18:45 12/02/24 12:24 650 MG Acetaminophen/ Hydrocodone Bitart 1 tab Q4HP PRN PO 11/25/24 18:45 11/29/24 01:54 1 TAB Ondansetron HCl 4 mg Q4HP PRN IV 11/25/24 18:45 Morphine Sulfate 2 mg Q4HPRN PRN IV 11/25/24 18:45 11/28/24 09:11 2 MG Enoxaparin Sodium 40 mg DAILY SC 11/26/24 10:00 12/02/24 09:45 40 MG Pantoprazole Sodium 40 mg DAILY@0700 PO 11/26/24 07:00 12/02/24 06:00 40 MG Levalbuterol HCl 1.25 mg Q4HPRN PRN NEB 11/29/24 16:00 11/29/24 16:33 1.25 MG Aspirin 81 mg DAILY PO 11/30/24 10:00 12/02/24 09:45 81 MG Atorvastatin Calcium 40 mg HS PO 11/29/24 22:00 12/01/24 21:04 40 MG Piperacillin Sod/ Tazobactam Sod 100 ml @ 25 mls/hr Q8HR IV 11/30/24 06:00 12/02/24 06:00 25 MLS/HR Losartan Potassium 50 mg DAILY PO 12/01/24 10:00 12/02/24 09:46 50 MG Furosemide 20 mg DAILY IV 12/01/24 10:00 12/02/24 09:45 20 MG Nystatin 5 ml QID MT 12/01/24 18:00 12/02/24 12:18 5 ML objective GENERAL: Alert and oriented x 3. No acute distress. Obese. EYES: PERRL, EOMI. Anicteric. HENT: Moist mucous membranes. LUNGS: Clear to auscultation bilaterally. CARDIOVASCULAR: Regular rate and rhythm. ABDOMEN: Soft, non-tender and non-distended. EXTREMITIES: Nonpitting edema to bilateral lower legs. NEUROLOGIC: No focal neurological deficits. SKIN: Warm, dry. laboratory and microbiology Laboratory Tests 12/01/24 06:41 Test 12/01/24 06:41 Range/Units Serum Glucose 113 H 74-106 mg/dL Problem List NSTEMI. Rule out structural heart disease. Coronary artery disease s/p PTCA's X 4 LITA (on ASA). Hypertension. Dyslipidemia. Thrombocytopenia. Bacteremia. Obesity. Assessment/Plan Continued all current supportive medical care. Aspirin. Losartan. Diuretics with Lasix. DVT and GI prophylactics. IV antibiotics as ordered. Tylenol for pain management. Additional plan as per the hospital course. Dietary Evaluation Review Comments: 1) Add cardiac restriction to diet 2) Encourage optimal PO intake 3) Refer to outpatient RD for weight management 4) Follow-up with cardiolgoy and orthopedic surgeon 5) Continue to monitor I&O, labs, and skin integrity Expected Outcomes/Goals: 1) appetite and labs to improve 2) gradual wt loss 3) f/u in 3-5 days Plan discussed with: Patient NOLVIA CASTRO MD Dec 02, 2024 12:58
[2024-12-03] VITALS (11 sets, daily range): BP systolic 113–134; BP diastolic 52–80; PULSE 70–92; RESP 17–18; TEMP 97.4–98.5; O2SAT 96–100
--- NOTE | 2024-12-03 12:41 | DVHPN2 ---
Subjective The patient is seen and examined at bedside. Still complain of knee pain. Had worked with physical therapist Reviewed: Care Plan, H&P, Labs, Medications, Previous Orders, Radiology Changes from previous H/P or p: No Changes Objective Vitals Vital Signs Date Time Temp Pulse Resp B/P (MAP) Pulse Ox O2 Delivery O2 Flow Rate FiO2 12/03/24 09:51 96 Nasal Cannula* 2 28 12/03/24 09:07 113/76 12/03/24 09:00 98.3 87 17 98.3 Intake/Output Intake and Output 12/03/24 07:00 Intake Total 1755 ml Balance 1755 ml Intake Oral 1755 ml # Voids 3 # Bowel Movements 1 General Appearance: Alert, Oriented X3, Cooperative, No acute distress HEENT: Atraumatic Neck: Supple Lungs: Other (Decreased air entry bilaterally with severe expiratory wheezing) Cardiovascular: Normal S1, Normal S2, Other (Tachycardia) Abdomen: Normal bowel sounds, Soft, No tenderness Extremities: No edema Neuro: Normal speech, Cranial nerves 3-12 NL Psych/Mental Status: Mental status NL, Mood NL Medications Current Medications Medications Dose Ordered Sig/Mike Route Start Time Stop Time Status Last Admin Dose Admin Sodium Chloride 10 ml Q8HR IV 11/25/24 22:00 12/03/24 06:00 10 ML Docusate Sodium 100 mg BIDPRN PRN PO 11/25/24 18:45 Acetaminophen 650 mg Q6HP PRN PO 11/25/24 18:45 12/03/24 11:09 650 MG Acetaminophen/ Hydrocodone Bitart 1 tab Q4HP PRN PO 11/25/24 18:45 11/29/24 01:54 1 TAB Ondansetron HCl 4 mg Q4HP PRN IV 11/25/24 18:45 Morphine Sulfate 2 mg Q4HPRN PRN IV 11/25/24 18:45 12/03/24 04:05 2 MG Enoxaparin Sodium 40 mg DAILY SC 11/26/24 10:00 12/03/24 09:08 40 MG Pantoprazole Sodium 40 mg DAILY@0700 PO 11/26/24 07:00 12/03/24 07:04 40 MG Levalbuterol HCl 1.25 mg Q4HPRN PRN NEB 11/29/24 16:00 11/29/24 16:33 1.25 MG Aspirin 81 mg DAILY PO 11/30/24 10:00 12/03/24 09:06 81 MG Atorvastatin Calcium 40 mg HS PO 11/29/24 22:00 12/02/24 21:39 40 MG Piperacillin Sod/ Tazobactam Sod 100 ml @ 25 mls/hr Q8HR IV 11/30/24 06:00 12/03/24 07:06 25 MLS/HR Losartan Potassium 50 mg DAILY PO 12/01/24 10:00 12/03/24 09:07 50 MG Furosemide 20 mg DAILY IV 12/01/24 10:00 12/03/24 09:07 20 MG Nystatin 5 ml QID MT 12/01/24 18:00 12/03/24 11:09 5 ML Laboratory Results Laboratory Tests 12/01/24 06:41 Urinalysis Test 12/01/24 02:00 Urine Color Yellow (Yellow) Urine Clarity Turbid (Clear) H Urine pH 5.5 (5.0-9.0) Urine Specific [place] 1.025 (1.001-1.035) Urine Protein Trace (Negative) H Urine Ketones Negative (Negative) Urine Blood 2+ /uL (Negative) H Urine Nitrite Negative (Negative) Urine Bilirubin Negative (Negative) Urine Urobilinogen Normal mg/dL (Negative) Urine Leukocyte Esterase Negative /uL (Negative) Urine RBC 4 /hpf (0 - 4) Urine Microscopic WBC 2 /HPF (0-5) Urine Squamous Epithelial Cells Mod /hpf (<5) Urine Bacteria None seen /hpf (None Seen) Urine Glucose Normal mg/dL (Normal) Microbiology Microbiology Date/Time Source Procedure Growth Status 11/29/24 16:25 Blood Blood Culture - Final Escherichia coli Complete Labs and/or images reviewed: Labs reviewed by me Assessment/Plan Assessment/Plan E coli bacteremia sensitive to Zosyn Acute hypoxic respiratory failure due to pulmonary congestion and suspected pneumonia Chest discomfort; to rule out ACS NSTEMI; elevated troponin Elevated D-dimer; PE and DVT ruled out Episodic wheezing with tachycardia Hypertensive heart disease without heart failure Physical deconditioning due to above Thrombocytopenia; unclear etiology Obesity Transfer to telemetry; reviewed EKG that showed no ST-elevation; ordered troponin that came back elevated Cardiology consulted Started aspirin and statin but aspirin was not given due to thrombocytopenia Started on nebulizers Continue oxygen therapy as indicated Started IV antibiotics [place] Worker consulted for SNF placement for rehab as per Physical Therapy recommendations when medically stable Counseled the patient importance of adopting healthy lifestyle with diet and exercise in order to lose weight Continue antihypertensive medication/s and adjust according to blood pressure monitoring Reviewed previous imaging studies including chest angiogram Reviewed the available lab work Ordered echocardiogram; reviewed old echocardiogram from 2021 that showed no wall abnormalities and no heart failure Ordered blood and urine cultures, we will continuing to monitor blood culture Continuing with nystatin swish and swallow for mouth sores.Continue current antibiotics. Continue rest of supportive care and treatment as she is on. Further clinical management per clinical course and pending echocardiogram results. Continuing current management. Discussed with daughter and son at bedside in length regarding to plan of care. nursing home home facility for rehab when patient medically stable. We will repeat blood culture within couple day. This medical document was created using an electronic medical record system with [employer] direct computerized dictation system. Although this document has been carefully reviewed, there may still be some phonetic and typographical errors. These areas are purely typographical due to imperfections of the software programs, and do not reflect any compromise in the patient's medical care. Plan discussed with: Patient, Daughter, Son Date of Service: Dec 03, 2024 Billing Provider: FELECIA VALENCIA MD Common Visit Codes: [id number] INP/OBS CARE(HIGH) FELECIA VAELNCIA MD Dec 03, 2024 12:41
--- NOTE | 2024-12-03 22:42 | DVHPN2 ---
Progress Note - Dictate Date Seen: Dec 03, 2024 Medical Necessity Reason Pt with a Central, PICC or Fol: No Subjective Patient was seen and evaluated in follow up. Patient is on 2 LPM NC. Patient complaining of severe knee pain. Telemetry reviewed. vital signs Vital Sign Date Time Temp Pulse Resp B/P (MAP) Pulse Ox O2 Delivery O2 Flow Rate FiO2 12/03/24 09:51 96 Nasal Cannula* 2 28 12/03/24 09:07 113/76 12/03/24 09:00 98.3 87 17 98.3 Total Intake and Output 12/02/24 12/02/24 12/03/24 15:00 23:00 07:00 Intake Total 1300 ml 455 ml Balance 1300 ml 455 ml medications Current Medications Medications Dose Ordered Sig/Mike Route Start Time Stop Time Status Last Admin Dose Admin Sodium Chloride 10 ml Q8HR IV 11/25/24 22:00 12/03/24 06:00 10 ML Docusate Sodium 100 mg BIDPRN PRN PO 11/25/24 18:45 Acetaminophen 650 mg Q6HP PRN PO 11/25/24 18:45 12/03/24 11:09 650 MG Acetaminophen/ Hydrocodone Bitart 1 tab Q4HP PRN PO 11/25/24 18:45 11/29/24 01:54 1 TAB Ondansetron HCl 4 mg Q4HP PRN IV 11/25/24 18:45 Morphine Sulfate 2 mg Q4HPRN PRN IV 11/25/24 18:45 12/03/24 04:05 2 MG Enoxaparin Sodium 40 mg DAILY SC 11/26/24 10:00 12/03/24 09:08 40 MG Pantoprazole Sodium 40 mg DAILY@0700 PO 11/26/24 07:00 12/03/24 07:04 40 MG Levalbuterol HCl 1.25 mg Q4HPRN PRN NEB 11/29/24 16:00 11/29/24 16:33 1.25 MG Aspirin 81 mg DAILY PO 11/30/24 10:00 12/03/24 09:06 81 MG Atorvastatin Calcium 40 mg HS PO 11/29/24 22:00 12/02/24 21:39 40 MG Piperacillin Sod/ Tazobactam Sod 100 ml @ 25 mls/hr Q8HR IV 11/30/24 06:00 12/03/24 07:06 25 MLS/HR Losartan Potassium 50 mg DAILY PO 12/01/24 10:00 12/03/24 09:07 50 MG Furosemide 20 mg DAILY IV 12/01/24 10:00 12/03/24 09:07 20 MG Nystatin 5 ml QID MT 12/01/24 18:00 12/03/24 11:09 5 ML objective GENERAL: Alert and oriented x 3. No acute distress. Obese. EYES: PERRL, EOMI. Anicteric. HENT: Moist mucous membranes. LUNGS: Clear to auscultation bilaterally. CARDIOVASCULAR: Regular rate and rhythm. ABDOMEN: Soft, non-tender and non-distended. EXTREMITIES: Nonpitting edema to bilateral lower legs. NEUROLOGIC: No focal neurological deficits. SKIN: Warm, dry. laboratory and microbiology Laboratory Tests 12/01/24 06:41 Test 12/01/24 06:41 Range/Units Serum Glucose 113 H 74-106 mg/dL Problem List NSTEMI. Rule out structural heart disease. Coronary artery disease s/p PTCA's X 4 LITA (on ASA). Hypertension. Dyslipidemia. Thrombocytopenia. Bacteremia. Obesity. Assessment/Plan Continued all current supportive medical care. Aspirin. Losartan. Diuretics with Lasix. DVT and GI prophylactics. IV antibiotics as ordered. Tylenol for pain management. Additional plan as per the hospital course. Dietary Evaluation Review Comments: 1) Add cardiac restriction to diet 2) Encourage optimal PO intake 3) Refer to outpatient RD for weight management 4) Follow-up with cardiolgoy and orthopedic surgeon 5) Continue to monitor I&O, labs, and skin integrity Expected Outcomes/Goals: 1) appetite and labs to improve 2) gradual wt loss 3) f/u in 3-5 days Plan discussed with: Patient NOLVIA CASTRO MD Dec 03, 2024 12:53
[2024-12-04] VITALS (11 sets, daily range): BP systolic 110–151; BP diastolic 59–79; PULSE 75–89; RESP 17–20; TEMP 98.2–99.3; O2SAT 95–100
[2024-12-04 06:29] LABS: Hematocrit 29.8 % (36.0-46.0); Hemoglobin 10.2 g/dL (12.2-16.2); Mean Corpuscular Hemoglobin 32.3 pg (28.0-32.0); Mean Corpuscular Volume 93.9 fL (80.0-100.0); Nucleated Red Blood Cells % 0.1 %
[2024-12-04 06:39] LABS: Chloride 99 mmol/L (98-107); Potassium 3.8 mmol/L (3.5-5.1)
[2024-12-04 06:40] LABS: Anion Gap 9 (5-15); Carbon Dioxide 27 mmol/L (20-31)
[2024-12-04 06:45] LABS: Glucose 104 mg/dL (74-106)
[2024-12-04 06:46] LABS: BUN/Creatinine Ratio 19.1 (10.0-20.0); Blood Urea Nitrogen 13 mg/dL (9-23)
[2024-12-04 06:50] LABS: Calcium 7.8 mg/dL (8.7-10.4); Sodium 135 mmol/L (136-145)
--- NOTE | 2024-12-04 13:18 | DVHPN2 ---
Subjective The patient is seen and examined at bedside. Still complain of knee pain. Reviewed: Care Plan, H&P, Labs, Medications, Previous Orders, Radiology Changes from previous H/P or p: No Changes Objective Vitals Vital Signs Date Time Temp Pulse Resp B/P (MAP) Pulse Ox O2 Delivery O2 Flow Rate FiO2 12/04/24 10:00 95 Nasal Cannula 2.0 12/04/24 10:00 28 12/04/24 09:00 98.6 80 17 122/71 (88) 98.6 Intake/Output Intake and Output 12/04/24 07:00 Intake Total 1230 ml Balance 1230 ml Intake Oral 1130 ml IV Total 100 ml # Voids 3 General Appearance: Alert, Oriented X3, Cooperative, No acute distress HEENT: Atraumatic Neck: Supple Lungs: Other (Decreased air entry bilaterally with severe expiratory wheezing) Cardiovascular: Normal S1, Normal S2, Other (Tachycardia) Abdomen: Normal bowel sounds, Soft, No tenderness Extremities: No edema Neuro: Normal speech, Cranial nerves 3-12 NL Psych/Mental Status: Mental status NL, Mood NL Medications Current Medications Medications Dose Ordered Sig/Mike Route Start Time Stop Time Status Last Admin Dose Admin Sodium Chloride 10 ml Q8HR IV 11/25/24 22:00 12/04/24 05:45 10 ML Docusate Sodium 100 mg BIDPRN PRN PO 11/25/24 18:45 Acetaminophen 650 mg Q6HP PRN PO 11/25/24 18:45 12/04/24 08:55 650 MG Acetaminophen/ Hydrocodone Bitart 1 tab Q4HP PRN PO 11/25/24 18:45 11/29/24 01:54 1 TAB Ondansetron HCl 4 mg Q4HP PRN IV 11/25/24 18:45 Morphine Sulfate 2 mg Q4HPRN PRN IV 11/25/24 18:45 12/03/24 04:05 2 MG Enoxaparin Sodium 40 mg DAILY SC 11/26/24 10:00 12/04/24 08:54 40 MG Pantoprazole Sodium 40 mg DAILY@0700 PO 11/26/24 07:00 12/04/24 06:01 40 MG Levalbuterol HCl 1.25 mg Q4HPRN PRN NEB 11/29/24 16:00 11/29/24 16:33 1.25 MG Aspirin 81 mg DAILY PO 11/30/24 10:00 12/04/24 08:55 81 MG Atorvastatin Calcium 40 mg HS PO 11/29/24 22:00 12/03/24 21:49 40 MG Piperacillin Sod/ Tazobactam Sod 100 ml @ 25 mls/hr Q8HR IV 11/30/24 06:00 12/04/24 05:45 25 MLS/HR Losartan Potassium 50 mg DAILY PO 12/01/24 10:00 12/04/24 08:55 50 MG Furosemide 20 mg DAILY IV 12/01/24 10:00 12/04/24 08:55 20 MG Nystatin 5 ml QID MT 12/01/24 18:00 12/04/24 11:46 5 ML Laboratory Results Laboratory Tests 12/04/24 05:23 Chemistry Test 12/04/24 05:23 Calcium Level 7.8 mg/dL (8.7-10.4) L Urinalysis Test 12/01/24 02:00 Urine Color Yellow (Yellow) Urine Clarity Turbid (Clear) H Urine pH 5.5 (5.0-9.0) Urine Specific [place] 1.025 (1.001-1.035) Urine Protein Trace (Negative) H Urine Ketones Negative (Negative) Urine Blood 2+ /uL (Negative) H Urine Nitrite Negative (Negative) Urine Bilirubin Negative (Negative) Urine Urobilinogen Normal mg/dL (Negative) Urine Leukocyte Esterase Negative /uL (Negative) Urine RBC 4 /hpf (0 - 4) Urine Microscopic WBC 2 /HPF (0-5) Urine Squamous Epithelial Cells Mod /hpf (<5) Urine Bacteria None seen /hpf (None Seen) Urine Glucose Normal mg/dL (Normal) Microbiology Microbiology Date/Time Source Procedure Growth Status 12/01/24 02:00 Urine - Catheterized Urine Culture - Final Complete 11/29/24 16:25 Blood Blood Culture - Final Escherichia coli Complete Labs and/or images reviewed: Labs reviewed by me Assessment/Plan Assessment/Plan E coli bacteremia sensitive to Zosyn Acute hypoxic respiratory failure due to pulmonary congestion and suspected pneumonia Chest discomfort; to rule out ACS NSTEMI; elevated troponin Elevated D-dimer; PE and DVT ruled out Episodic wheezing with tachycardia Hypertensive heart disease without heart failure Physical deconditioning due to above Thrombocytopenia; unclear etiology Obesity Transfer to telemetry; reviewed EKG that showed no ST-elevation; ordered troponin that came back elevated Cardiology consulted Started aspirin and statin but aspirin was not given due to thrombocytopenia Started on nebulizers Continue oxygen therapy as indicated Started IV antibiotics [facility] consulted for SNF placement for rehab as per Physical Therapy recommendations when medically stable Counseled the patient importance of adopting healthy lifestyle with diet and exercise in order to lose weight Continue antihypertensive medication/s and adjust according to blood pressure monitoring Reviewed previous imaging studies including chest angiogram Reviewed the available lab work Ordered echocardiogram; reviewed old echocardiogram from 2021 that showed no wall abnormalities and no heart failure Ordered blood and urine cultures, we will continuing to monitor blood culture Continuing with nystatin swish and swallow for mouth sores.Continue current antibiotics. Continue rest of supportive care and treatment as she is on. Further clinical management per clinical course and pending echocardiogram results. Continuing current management. Discussed with daughter and son at bedside in length regarding to plan of care. [facility] for rehab when patient medically stable. We will repeat blood culture within couple day. This medical document was created using an electronic medical record system with [employer] direct computerized dictation system. Although this document has been carefully reviewed, there may still be some phonetic and typographical errors. These areas are purely typographical due to imperfections of the software programs, and do not reflect any compromise in the patient's medical care. Plan discussed with: Patient My Orders Orders - FELECIA VALENCIA MD Procedure Category Date Status Time Complete Blood Count LAB 12/05/24 Verified 05:00 Complete Blood Count LAB 12/06/24 Verified 05:00 Complete Blood Count LAB 12/07/24 Verified 05:00 Complete Blood Count LAB 12/08/24 Verified 05:00 Basic Metabolic Panel LAB 12/05/24 Verified 05:00 Basic Metabolic Panel LAB 12/06/24 Verified 05:00 Basic Metabolic Panel LAB 12/07/24 Verified 05:00 Basic Metabolic Panel LAB 12/08/24 Verified 05:00 Date of Service: Dec 04, 2024 Billing Provider: FELECIA VALENCIA MD Common Visit Codes: [id number] INP/OBS CARE(HIGH) FELECIA VALENCIA MD Dec 04, 2024 13:18
--- NOTE | 2024-12-04 19:27 | DVHPN2 ---
Progress Note - Dictate Date Seen: Dec 04, 2024 Medical Necessity Reason Pt with a Central, PICC or Fol: No Subjective Patient was seen and evaluated in follow up. Patient is on 2 LPM NC. Patient complaining of knee pain. Patient is working well with PT. Telemetry reviewed. vital signs Vital Sign Date Time Temp Pulse Resp B/P (MAP) Pulse Ox O2 Delivery O2 Flow Rate FiO2 12/04/24 17:00 98.2 83 20 121/72 (88) 96 98.2 12/04/24 10:00 Nasal Cannula 2.0 12/04/24 10:00 28 Total Intake and Output 12/03/24 12/03/24 12/04/24 15:00 23:00 07:00 Intake Total 630 ml 600 ml Balance 630 ml 600 ml medications Current Medications Medications Dose Ordered Sig/Mike Route Start Time Stop Time Status Last Admin Dose Admin Sodium Chloride 10 ml Q8HR IV 11/25/24 22:00 12/04/24 13:38 10 ML Docusate Sodium 100 mg BIDPRN PRN PO 11/25/24 18:45 Acetaminophen 650 mg Q6HP PRN PO 11/25/24 18:45 12/04/24 08:55 650 MG Acetaminophen/ Hydrocodone Bitart 1 tab Q4HP PRN PO 11/25/24 18:45 11/29/24 01:54 1 TAB Ondansetron HCl 4 mg Q4HP PRN IV 11/25/24 18:45 Morphine Sulfate 2 mg Q4HPRN PRN IV 11/25/24 18:45 12/03/24 04:05 2 MG Enoxaparin Sodium 40 mg DAILY SC 11/26/24 10:00 12/04/24 08:54 40 MG Pantoprazole Sodium 40 mg DAILY@0700 PO 11/26/24 07:00 12/04/24 06:01 40 MG Levalbuterol HCl 1.25 mg Q4HPRN PRN NEB 11/29/24 16:00 11/29/24 16:33 1.25 MG Aspirin 81 mg DAILY PO 11/30/24 10:00 12/04/24 08:55 81 MG Atorvastatin Calcium 40 mg HS PO 11/29/24 22:00 12/03/24 21:49 40 MG Piperacillin Sod/ Tazobactam Sod 100 ml @ 25 mls/hr Q8HR IV 11/30/24 06:00 12/04/24 13:38 25 MLS/HR Losartan Potassium 50 mg DAILY PO 12/01/24 10:00 12/04/24 08:55 50 MG Furosemide 20 mg DAILY IV 12/01/24 10:00 12/04/24 08:55 20 MG Nystatin 5 ml QID MT 12/01/24 18:00 12/04/24 17:18 5 ML objective GENERAL: Alert and oriented x 3. No acute distress. Obese. EYES: PERRL, EOMI. Anicteric. HENT: Moist mucous membranes. LUNGS: Clear to auscultation bilaterally. CARDIOVASCULAR: Regular rate and rhythm. ABDOMEN: Soft, non-tender and non-distended. EXTREMITIES: Nonpitting edema to bilateral lower legs. NEUROLOGIC: No focal neurological deficits. SKIN: Warm, dry. laboratory and microbiology Laboratory Tests 12/04/24 05:23 Test 12/04/24 05:23 Range/Units Serum Glucose 104 74-106 mg/dL Problem List NSTEMI. Rule out structural heart disease. Coronary artery disease s/p PTCA's X 4 LITA (on ASA). Hypertension. Dyslipidemia. Thrombocytopenia. Bacteremia. Obesity. Assessment/Plan Continued all current supportive medical care. Morphine and [place] for pain management. Aspirin, Lipitor. DVT and GI prophylactics. Diuretics with Lasix. Losartan. IV antibiotics as ordered. Additional plan as per the hospital course. Dietary Evaluation Review Comments: 1) Add cardiac restriction to diet 2) Encourage optimal PO intake 3) Refer to outpatient RD for weight management 4) Follow-up with cardiolgoy and orthopedic surgeon 5) Continue to monitor I&O, labs, and skin integrity Expected Outcomes/Goals: 1) appetite and labs to improve 2) gradual wt loss 3) f/u in 3-5 days Plan discussed with: Patient NOLVIA CASTRO MD Dec 04, 2024 18:53
[2024-12-05] VITALS (12 sets, daily range): BP systolic 115–142; BP diastolic 59–76; PULSE 86–96; RESP 17–18; TEMP 98.1–99.8; O2SAT 96–100
[2024-12-05 07:41] LABS: Anion Gap 9 (5-15); Carbon Dioxide 27 mmol/L (20-31); Chloride 99 mmol/L (98-107); Potassium 4.3 mmol/L (3.5-5.1)
[2024-12-05 07:44] LABS: Hematocrit 31.7 % (36.0-46.0); Hemoglobin 10.9 g/dL (12.2-16.2); Mean Corpuscular Hemoglobin 32.4 pg (28.0-32.0); Mean Corpuscular Volume 93.8 fL (80.0-100.0); Nucleated Red Blood Cells % 0.0 %
[2024-12-05 07:47] LABS: BUN/Creatinine Ratio 20.0 (10.0-20.0); Blood Urea Nitrogen 13 mg/dL (9-23); Calcium 7.9 mg/dL (8.7-10.4); Glucose 85 mg/dL (74-106); Sodium 135 mmol/L (136-145)
--- NOTE | 2024-12-05 14:24 | DVHPN2 ---
Subjective The patient is seen and examined at bedside. Still complain of knee pain. Reviewed: Care Plan, H&P, Labs, Medications, Previous Orders, Radiology Changes from previous H/P or p: No Changes Objective Vitals Vital Signs Date Time Temp Pulse Resp B/P (MAP) Pulse Ox O2 Delivery O2 Flow Rate FiO2 12/05/24 13:00 98.6 86 18 139/71 (93) 100 98.6 12/05/24 10:00 Nasal Cannula 3.0 12/05/24 10:00 32 Intake/Output Intake and Output 12/05/24 07:00 Intake Total 656 ml Output Total 4 ml Balance 652 ml Intake Oral 556 ml IV Total 100 ml Output Urine/Stool Mix 4 ml # Voids 4 General Appearance: Alert, Oriented X3, Cooperative, No acute distress HEENT: Atraumatic Neck: Supple Lungs: Other (Decreased air entry bilaterally with severe expiratory wheezing) Cardiovascular: Normal S1, Normal S2, Other (Tachycardia) Abdomen: Normal bowel sounds, Soft, No tenderness Extremities: No edema Neuro: Normal speech, Cranial nerves 3-12 NL Psych/Mental Status: Mental status NL, Mood NL Medications Current Medications Medications Dose Ordered Sig/Mike Route Start Time Stop Time Status Last Admin Dose Admin Sodium Chloride 10 ml Q8HR IV 11/25/24 22:00 12/05/24 13:07 10 ML Docusate Sodium 100 mg BIDPRN PRN PO 11/25/24 18:45 Acetaminophen 650 mg Q6HP PRN PO 11/25/24 18:45 12/05/24 09:24 650 MG Acetaminophen/ Hydrocodone Bitart 1 tab Q4HP PRN PO 11/25/24 18:45 11/29/24 01:54 1 TAB Ondansetron HCl 4 mg Q4HP PRN IV 11/25/24 18:45 Morphine Sulfate 2 mg Q4HPRN PRN IV 11/25/24 18:45 12/03/24 04:05 2 MG Enoxaparin Sodium 40 mg DAILY SC 11/26/24 10:00 12/05/24 08:57 40 MG Pantoprazole Sodium 40 mg DAILY@0700 PO 11/26/24 07:00 12/05/24 06:16 40 MG Levalbuterol HCl 1.25 mg Q4HPRN PRN NEB 11/29/24 16:00 11/29/24 16:33 1.25 MG Aspirin 81 mg DAILY PO 11/30/24 10:00 12/05/24 08:56 81 MG Atorvastatin Calcium 40 mg HS PO 11/29/24 22:00 12/04/24 21:50 40 MG Piperacillin Sod/ Tazobactam Sod 100 ml @ 25 mls/hr Q8HR IV 11/30/24 06:00 12/05/24 13:08 25 MLS/HR Losartan Potassium 50 mg DAILY PO 12/01/24 10:00 12/05/24 08:56 50 MG Furosemide 20 mg DAILY IV 12/01/24 10:00 12/05/24 08:46 20 MG Nystatin 5 ml QID MT 12/01/24 18:00 12/05/24 13:07 5 ML Laboratory Results Laboratory Tests 12/05/24 05:48 Chemistry Test 12/05/24 05:48 Calcium Level 7.9 mg/dL (8.7-10.4) L Urinalysis Test 12/01/24 02:00 Urine Color Yellow (Yellow) Urine Clarity Turbid (Clear) H Urine pH 5.5 (5.0-9.0) Urine Specific [place] 1.025 (1.001-1.035) Urine Protein Trace (Negative) H Urine Ketones Negative (Negative) Urine Blood 2+ /uL (Negative) H Urine Nitrite Negative (Negative) Urine Bilirubin Negative (Negative) Urine Urobilinogen Normal mg/dL (Negative) Urine Leukocyte Esterase Negative /uL (Negative) Urine RBC 4 /hpf (0 - 4) Urine Microscopic WBC 2 /HPF (0-5) Urine Squamous Epithelial Cells Mod /hpf (<5) Urine Bacteria None seen /hpf (None Seen) Urine Glucose Normal mg/dL (Normal) Microbiology Microbiology Date/Time Source Procedure Growth Status 12/01/24 02:00 Urine - Catheterized Urine Culture - Final Complete 11/29/24 16:25 Blood Blood Culture - Final Escherichia coli Complete Assessment/Plan Assessment/Plan E coli bacteremia sensitive to Zosyn Acute hypoxic respiratory failure due to pulmonary congestion and suspected pneumonia Chest discomfort; to rule out ACS NSTEMI; elevated troponin Elevated D-dimer; PE and DVT ruled out Episodic wheezing with tachycardia Hypertensive heart disease without heart failure Physical deconditioning due to above Thrombocytopenia; unclear etiology Obesity Transfer to telemetry; reviewed EKG that showed no ST-elevation; ordered troponin that came back elevated Cardiology consulted Started aspirin and statin but aspirin was not given due to thrombocytopenia Started on nebulizers Continue oxygen therapy as indicated Started IV antibiotics [employer] consulted for SNF placement for rehab as per Physical Therapy recommendations when medically stable Counseled the patient importance of adopting healthy lifestyle with diet and exercise in order to lose weight Continue antihypertensive medication/s and adjust according to blood pressure monitoring Reviewed previous imaging studies including chest angiogram Reviewed the available lab work Ordered echocardiogram; reviewed old echocardiogram from 2021 that showed no wall abnormalities and no heart failure Ordered blood and urine cultures, we will continuing to monitor blood culture Continuing with nystatin swish and swallow for mouth sores.Continue current antibiotics. Continue rest of supportive care and treatment as she is on. Further clinical management per clinical course and pending echocardiogram results. Continuing current management. Discussed with daughter and son at bedside in length regarding to plan of care[facility] patient medically stable. We will repeat blood culture in am. This medical document was created using an electronic medical record system with [employer] direct computerized dictation system. Although this document has been carefully reviewed, there may still be some phonetic and typographical errors. These areas are purely typographical due to imperfections of the software programs, and do not reflect any compromise in the patient's medical care. Plan discussed with: Patient Date of Service: Dec 05, 2024 Billing Provider: FELECIA VALENCIA MD Common Visit Codes: [id number] INP/OBS CARE(HIGH) FELECIA VALENCIA MD Dec 05, 2024 14:24
--- NOTE | 2024-12-05 18:25 | DVHPN2 ---
Subjective DOS: 12/03/2024 Patient seen and examined at bedside. Remains on supplemental oxygen Overnight events reviewed. Reviewed: Care Plan, H&P, Labs, Medications, Previous Orders, Radiology Changes from previous H/P or p: No Changes Objective Vitals Vital Signs Date Time Temp Pulse Resp B/P (MAP) Pulse Ox O2 Delivery O2 Flow Rate FiO2 12/05/24 17:00 98.6 86 18 142/76 (98) 99 98.6 12/05/24 14:30 3.0 32 12/05/24 10:00 Nasal Cannula Intake/Output Intake and Output 12/05/24 07:00 Intake Total 656 ml Output Total 4 ml Balance 652 ml Intake Oral 556 ml IV Total 100 ml Output Urine/Stool Mix 4 ml # Voids 4 General Appearance: Alert, Oriented X3, Cooperative, No acute distress HEENT: Atraumatic Neck: Supple Lungs: Other (Decreased air entry bilaterally with severe expiratory wheezing) Cardiovascular: Normal S1, Normal S2, Other (Tachycardia) Abdomen: Normal bowel sounds, Soft, No tenderness Extremities: No edema Neuro: Normal speech, Cranial nerves 3-12 NL Psych/Mental Status: Mental status NL, Mood NL Medications Current Medications Medications Dose Ordered Sig/Mike Route Start Time Stop Time Status Last Admin Dose Admin Sodium Chloride 10 ml Q8HR IV 11/25/24 22:00 12/05/24 13:07 10 ML Docusate Sodium 100 mg BIDPRN PRN PO 11/25/24 18:45 Acetaminophen 650 mg Q6HP PRN PO 11/25/24 18:45 12/05/24 09:24 650 MG Acetaminophen/ Hydrocodone Bitart 1 tab Q4HP PRN PO 11/25/24 18:45 11/29/24 01:54 1 TAB Ondansetron HCl 4 mg Q4HP PRN IV 11/25/24 18:45 Morphine Sulfate 2 mg Q4HPRN PRN IV 11/25/24 18:45 12/03/24 04:05 2 MG Enoxaparin Sodium 40 mg DAILY SC 11/26/24 10:00 12/05/24 08:57 40 MG Pantoprazole Sodium 40 mg DAILY@0700 PO 11/26/24 07:00 12/05/24 06:16 40 MG Levalbuterol HCl 1.25 mg Q4HPRN PRN NEB 11/29/24 16:00 11/29/24 16:33 1.25 MG Aspirin 81 mg DAILY PO 11/30/24 10:00 12/05/24 08:56 81 MG Atorvastatin Calcium 40 mg HS PO 11/29/24 22:00 12/04/24 21:50 40 MG Piperacillin Sod/ Tazobactam Sod 100 ml @ 25 mls/hr Q8HR IV 11/30/24 06:00 12/05/24 13:08 25 MLS/HR Losartan Potassium 50 mg DAILY PO 12/01/24 10:00 12/05/24 08:56 50 MG Furosemide 20 mg DAILY IV 12/01/24 10:00 12/05/24 08:46 20 MG Nystatin 5 ml QID MT 12/01/24 18:00 12/05/24 13:07 5 ML Laboratory Results Laboratory Tests 12/05/24 05:48 Chemistry Test 12/05/24 05:48 Calcium Level 7.9 mg/dL (8.7-10.4) L Urinalysis Test 12/01/24 02:00 Urine Color Yellow (Yellow) Urine Clarity Turbid (Clear) H Urine pH 5.5 (5.0-9.0) Urine Specific [place] 1.025 (1.001-1.035) Urine Protein Trace (Negative) H Urine Ketones Negative (Negative) Urine Blood 2+ /uL (Negative) H Urine Nitrite Negative (Negative) Urine Bilirubin Negative (Negative) Urine Urobilinogen Normal mg/dL (Negative) Urine Leukocyte Esterase Negative /uL (Negative) Urine RBC 4 /hpf (0 - 4) Urine Microscopic WBC 2 /HPF (0-5) Urine Squamous Epithelial Cells Mod /hpf (<5) Urine Bacteria None seen /hpf (None Seen) Urine Glucose Normal mg/dL (Normal) Microbiology Microbiology Date/Time Source Procedure Growth Status 12/01/24 02:00 Urine - Catheterized Urine Culture - Final Complete 11/29/24 16:25 Blood Blood Culture - Final Escherichia coli Complete Assessment/Plan Assessment/Plan Impression: Acute hypoxic respiratory failure Dependence on supplemental oxygen Pneumonia, likely gram negative Pleural effusion Atelectasis Elevated D-dimer. Ruled out PE/DVT. Wheezing Obesity, BMI 34.4 Events: Remains on supplemental oxygen, 2 LPM NC Taper O2 as tolerated Improving oxygen requirements Continue bronchodilators Continue antibiotics F/u cultures - bacteremia with E.coli Sensitivities reviewed ID recommendations appreciated. Incentive spirometry Protonix for GI ppx Lovenox for DVT ppx Assess for home O2 requirements Disposition per hospitalist. Arranging SNF placement. Labs and imaging reviewed. Rest of plan as noted below. Plan: Supplemental oxygen Titrate to keep O2 sats above 92%. CXR showed pulmonary vascular congestion, bilateral airspace opacities. Small bilateral pleural effusions present. RLE venous Doppler revealed no DVT. Elevated troponin - Cardiology recs appreciated. Echo revealed EF of 55%; mild LVH; mild diastolic dysfunction. Continue bronchodilators. Continue antibiotics Follow up cultures Blood cx positive for GNRs. Viral panel negative. Incentive spirometry Monitor hemoglobin. Transfuse if less than 7.0 g/dL. Follow up Ortho recommendations Diurese to euvolemia w/ Lasix Monitor renal function. Monitor electrolytes. Supplement as necessary. Monitor ins and outs. Diet and lifestyle modifications for weight reduction Obesity complicates all care GI prophylaxis - Protonix DVT prophylaxis - Lovenox. Prognosis: Poor given patient's multiple co-morbidities. Rest of plan per hospitalist and other consultants. Thank you, Dr. Rodriguez, for allowing me to participate in this patient's care. Further recommendations will depend on the patient's clinical course. Please do not hesitate to contact me if you have any questions or concerns. This medical document was created using an electronic medical record system with [email or web address] dictation system. Although these documentations are being carefully reviewed, there may still be some phonetic and typographical changes. The errors are purely typographical, due to imperfection on the software program, and do not reflect any compromise in the patient's medical care. Plan discussed with: Patient, Other (DESIRE Reyes) Date of Service: Dec 03, 2024 Billing Provider: SHAWN HOUSE MD Common Visit Codes: [id number] INP/OBS CARE(HIGH) SHAWN HOUSE MD Dec 05, 2024 18:25
--- NOTE | 2024-12-05 20:04 | DVH ---
Exam: XY KUB ABDOMEN SINGLE VIEW Indication: Abdomen pain Comparison: CTA chest from 11/25/2024 Technique: 1 radiographic view of the abdomen. Findings: Scattered Gas throughout nondilated small and large bowel. No radiopaque foreign body. No abnormal calcifications. Multilevel lower thoracic and lumbar spondylosis. there is mild cardiomegaly. Impression: 1. No evidence of bowel obstruction. 2. Mild cardiomegaly.
--- NOTE | 2024-12-05 21:34 | DVHPN2 ---
Progress Note - Dictate Date Seen: Dec 05, 2024 Medical Necessity Reason Pt with a Central, PICC or Fol: No Subjective Patient was seen and evaluated in follow up. Patient is stable on 2 LPM NC. Patient complaining of knee pain. Telemetry reviewed. vital signs Vital Sign Date Time Temp Pulse Resp B/P (MAP) Pulse Ox O2 Delivery O2 Flow Rate FiO2 12/05/24 13:00 98.6 86 18 139/71 (93) 100 98.6 12/05/24 10:00 Nasal Cannula 3.0 12/05/24 10:00 32 Total Intake and Output 12/04/24 12/04/24 12/05/24 15:00 23:00 07:00 Intake Total 256 ml 400 ml Output Total 1 ml 3 ml Balance 255 ml 397 ml medications Current Medications Medications Dose Ordered Sig/Mike Route Start Time Stop Time Status Last Admin Dose Admin Sodium Chloride 10 ml Q8HR IV 11/25/24 22:00 12/05/24 13:07 10 ML Docusate Sodium 100 mg BIDPRN PRN PO 11/25/24 18:45 Acetaminophen 650 mg Q6HP PRN PO 11/25/24 18:45 12/05/24 09:24 650 MG Acetaminophen/ Hydrocodone Bitart 1 tab Q4HP PRN PO 11/25/24 18:45 11/29/24 01:54 1 TAB Ondansetron HCl 4 mg Q4HP PRN IV 11/25/24 18:45 Morphine Sulfate 2 mg Q4HPRN PRN IV 11/25/24 18:45 12/03/24 04:05 2 MG Enoxaparin Sodium 40 mg DAILY SC 11/26/24 10:00 12/05/24 08:57 40 MG Pantoprazole Sodium 40 mg DAILY@0700 PO 11/26/24 07:00 12/05/24 06:16 40 MG Levalbuterol HCl 1.25 mg Q4HPRN PRN NEB 11/29/24 16:00 11/29/24 16:33 1.25 MG Aspirin 81 mg DAILY PO 11/30/24 10:00 12/05/24 08:56 81 MG Atorvastatin Calcium 40 mg HS PO 11/29/24 22:00 12/04/24 21:50 40 MG Piperacillin Sod/ Tazobactam Sod 100 ml @ 25 mls/hr Q8HR IV 11/30/24 06:00 12/05/24 13:08 25 MLS/HR Losartan Potassium 50 mg DAILY PO 12/01/24 10:00 12/05/24 08:56 50 MG Furosemide 20 mg DAILY IV 12/01/24 10:00 12/05/24 08:46 20 MG Nystatin 5 ml QID MT 12/01/24 18:00 12/05/24 13:07 5 ML objective GENERAL: Alert and oriented x 3. No acute distress. Obese. EYES: PERRL, EOMI. Anicteric. HENT: Moist mucous membranes. LUNGS: Clear to auscultation bilaterally. CARDIOVASCULAR: Regular rate and rhythm. ABDOMEN: Soft, non-tender and non-distended. EXTREMITIES: Nonpitting edema to bilateral lower legs. NEUROLOGIC: No focal neurological deficits. SKIN: Warm, dry. laboratory and microbiology Laboratory Tests 12/05/24 05:48 Test 12/05/24 05:48 Range/Units Serum Glucose 85 74-106 mg/dL Problem List NSTEMI. Rule out structural heart disease. Coronary artery disease s/p PTCA's X 4 LITA (on ASA). Hypertension. Dyslipidemia. Thrombocytopenia. Bacteremia. Obesity. Assessment/Plan Continued all current supportive medical care. Morphine and Tylenol for pain management. Aspirin. DVT and GI prophylactics. Diuretics with Lasix. Losartan. IV antibiotics as ordered. Additional plan as per the hospital course. Dietary Evaluation Review Comments: 1) Add cardiac restriction to diet 2) Encourage optimal PO intake 3) Refer to outpatient RD for weight management 4) Follow-up with cardiolgoy and orthopedic surgeon 5) Continue to monitor I&O, labs, and skin integrity Expected Outcomes/Goals: 1) appetite and labs to improve 2) gradual wt loss 3) f/u in 3-5 days Plan discussed with: Patient NOLVIA CASTRO MD Dec 05, 2024 13:50
--- NOTE | 2024-12-05 22:40 | DVHPN2 ---
Subjective DOS: 12/04/2024 Patient seen and examined at bedside. Remains on supplemental oxygen Overnight events reviewed. Reviewed: Care Plan, H&P, Labs, Medications, Previous Orders, Radiology Changes from previous H/P or p: No Changes Objective Vitals Vital Signs Date Time Temp Pulse Resp B/P (MAP) Pulse Ox O2 Delivery O2 Flow Rate FiO2 12/05/24 19:59 97 Nasal Cannula 3.0 12/05/24 19:59 32 12/05/24 17:00 98.6 86 18 142/76 (98) 98.6 Intake/Output Intake and Output 12/05/24 06:59 Intake Total 656 ml Output Total 4 ml Balance 652 ml Intake Oral 556 ml IV Total 100 ml Output Urine/Stool Mix 4 ml # Voids 4 General Appearance: Alert, Oriented X3, Cooperative, No acute distress HEENT: Atraumatic Neck: Supple Lungs: Other (Decreased air entry bilaterally. Wheezing improved. No rhonchi) Cardiovascular: Normal S1, Normal S2, Other (Tachycardia) Abdomen: Normal bowel sounds, Soft, No tenderness Extremities: No edema Neuro: Normal speech, Cranial nerves 3-12 NL Psych/Mental Status: Mental status NL, Mood NL Medications Current Medications Medications Dose Ordered Sig/Mike Route Start Time Stop Time Status Last Admin Dose Admin Sodium Chloride 10 ml Q8HR IV 11/25/24 22:00 12/05/24 21:53 10 ML Docusate Sodium 100 mg BIDPRN PRN PO 11/25/24 18:45 Acetaminophen 650 mg Q6HP PRN PO 11/25/24 18:45 12/05/24 09:24 650 MG Acetaminophen/ Hydrocodone Bitart 1 tab Q4HP PRN PO 11/25/24 18:45 11/29/24 01:54 1 TAB Ondansetron HCl 4 mg Q4HP PRN IV 11/25/24 18:45 Morphine Sulfate 2 mg Q4HPRN PRN IV 11/25/24 18:45 12/03/24 04:05 2 MG Enoxaparin Sodium 40 mg DAILY SC 11/26/24 10:00 12/05/24 08:57 40 MG Pantoprazole Sodium 40 mg DAILY@0700 PO 11/26/24 07:00 12/05/24 06:16 40 MG Levalbuterol HCl 1.25 mg Q4HPRN PRN NEB 11/29/24 16:00 11/29/24 16:33 1.25 MG Aspirin 81 mg DAILY PO 11/30/24 10:00 12/05/24 08:56 81 MG Atorvastatin Calcium 40 mg HS PO 11/29/24 22:00 12/05/24 21:53 40 MG Piperacillin Sod/ Tazobactam Sod 100 ml @ 25 mls/hr Q8HR IV 11/30/24 06:00 12/05/24 21:54 25 MLS/HR Losartan Potassium 50 mg DAILY PO 12/01/24 10:00 12/05/24 08:56 50 MG Furosemide 20 mg DAILY IV 12/01/24 10:00 12/05/24 08:46 20 MG Nystatin 5 ml QID MT 12/01/24 18:00 12/05/24 21:53 5 ML Laboratory Results Laboratory Tests 12/05/24 05:48 Chemistry Test 12/05/24 05:48 Calcium Level 7.9 mg/dL (8.7-10.4) L Urinalysis Test 12/01/24 02:00 Urine Color Yellow (Yellow) Urine Clarity Turbid (Clear) H Urine pH 5.5 (5.0-9.0) Urine Specific [place] 1.025 (1.001-1.035) Urine Protein Trace (Negative) H Urine Ketones Negative (Negative) Urine Blood 2+ /uL (Negative) H Urine Nitrite Negative (Negative) Urine Bilirubin Negative (Negative) Urine Urobilinogen Normal mg/dL (Negative) Urine Leukocyte Esterase Negative /uL (Negative) Urine RBC 4 /hpf (0 - 4) Urine Microscopic WBC 2 /HPF (0-5) Urine Squamous Epithelial Cells Mod /hpf (<5) Urine Bacteria None seen /hpf (None Seen) Urine Glucose Normal mg/dL (Normal) Microbiology Microbiology Date/Time Source Procedure Growth Status 12/01/24 02:00 Urine - Catheterized Urine Culture - Final Complete 11/29/24 16:25 Blood Blood Culture - Final Escherichia coli Complete Assessment/Plan Assessment/Plan Impression: Acute hypoxic respiratory failure Dependence on supplemental oxygen Pneumonia, likely gram negative Pleural effusion Atelectasis Elevated D-dimer. Ruled out PE/DVT. Wheezing Obesity, BMI 34.4 Events: Remains on supplemental oxygen, 3 LPM NC Taper O2 as tolerated Continue bronchodilators Continue antibiotics F/u cultures - bacteremia with E.coli Sensitivities reviewed ID recommendations appreciated. Incentive spirometry Protonix for GI ppx Lovenox for DVT ppx Diurese with Lasix Monitor renal function Assess for home O2 requirements Disposition per hospitalist. Arranging SNF placement. Labs and imaging reviewed. Rest of plan as noted below. Plan: Supplemental oxygen Titrate to keep O2 sats above 92%. CXR showed pulmonary vascular congestion, bilateral airspace opacities. Small bilateral pleural effusions present. RLE venous Doppler revealed no DVT. Elevated troponin - Cardiology recs appreciated. Echo revealed EF of 55%; mild LVH; mild diastolic dysfunction. Continue bronchodilators. Continue antibiotics Follow up cultures Blood cx positive for GNRs. Viral panel negative. Incentive spirometry Monitor hemoglobin. Transfuse if less than 7.0 g/dL. Follow up Ortho recommendations Diurese to euvolemia w/ Lasix Monitor renal function. Monitor electrolytes. Supplement as necessary. Monitor ins and outs. Diet and lifestyle modifications for weight reduction Obesity complicates all care GI prophylaxis - Protonix DVT prophylaxis - Lovenox. Prognosis: Poor given patient's multiple co-morbidities. Rest of plan per hospitalist and other consultants. Thank you, Dr. Rodriguez, for allowing me to participate in this patient's care. Further recommendations will depend on the patient's clinical course. Please do not hesitate to contact me if you have any questions or concerns. This medical document was created using an electronic medical record system with [employer] dictation system. Although these documentations are being carefully reviewed, there may still be some phonetic and typographical changes. The errors are purely typographical, due to imperfection on the software program, and do not reflect any compromise in the patient's medical care. Plan discussed with: Patient, Other (RN) Date of Service: Dec 04, 2024 Billing Provider: SHAWN HOUSE MD Common Visit Codes: [id number] INP/OBS CARE(HIGH) SHAWN HOUSE MD Dec 05, 2024 22:40
--- NOTE | 2024-12-05 23:25 | DVHPN2 ---
Subjective DOS: 12/05/2024 Patient seen and examined at bedside. Remains on supplemental oxygen Overnight events reviewed. Reviewed: Care Plan, H&P, Labs, Medications, Previous Orders, Radiology Changes from previous H/P or p: No Changes Objective Vitals Vital Signs Date Time Temp Pulse Resp B/P (MAP) Pulse Ox O2 Delivery O2 Flow Rate FiO2 12/05/24 19:59 97 Nasal Cannula 3.0 12/05/24 19:59 32 12/05/24 17:00 98.6 86 18 142/76 (98) 98.6 Intake/Output Intake and Output 12/05/24 07:00 Intake Total 656 ml Output Total 4 ml Balance 652 ml Intake Oral 556 ml IV Total 100 ml Output Urine/Stool Mix 4 ml # Voids 4 General Appearance: Alert, Oriented X3, Cooperative, No acute distress HEENT: Atraumatic Neck: Supple Lungs: Other (Decreased air entry bilaterally. Wheezing improved. No rhonchi) Cardiovascular: Normal S1, Normal S2, Other (Tachycardia) Abdomen: Normal bowel sounds, Soft, No tenderness Extremities: No edema Neuro: Normal speech, Cranial nerves 3-12 NL Psych/Mental Status: Mental status NL, Mood NL Medications Current Medications Medications Dose Ordered Sig/Mike Route Start Time Stop Time Status Last Admin Dose Admin Sodium Chloride 10 ml Q8HR IV 11/25/24 22:00 12/05/24 21:53 10 ML Docusate Sodium 100 mg BIDPRN PRN PO 11/25/24 18:45 Acetaminophen 650 mg Q6HP PRN PO 11/25/24 18:45 12/05/24 09:24 650 MG Acetaminophen/ Hydrocodone Bitart 1 tab Q4HP PRN PO 11/25/24 18:45 11/29/24 01:54 1 TAB Ondansetron HCl 4 mg Q4HP PRN IV 11/25/24 18:45 Morphine Sulfate 2 mg Q4HPRN PRN IV 11/25/24 18:45 12/03/24 04:05 2 MG Enoxaparin Sodium 40 mg DAILY SC 11/26/24 10:00 12/05/24 08:57 40 MG Pantoprazole Sodium 40 mg DAILY@0700 PO 11/26/24 07:00 12/05/24 06:16 40 MG Levalbuterol HCl 1.25 mg Q4HPRN PRN NEB 11/29/24 16:00 11/29/24 16:33 1.25 MG Aspirin 81 mg DAILY PO 11/30/24 10:00 12/05/24 08:56 81 MG Atorvastatin Calcium 40 mg HS PO 11/29/24 22:00 12/05/24 21:53 40 MG Piperacillin Sod/ Tazobactam Sod 100 ml @ 25 mls/hr Q8HR IV 11/30/24 06:00 12/05/24 21:54 25 MLS/HR Losartan Potassium 50 mg DAILY PO 12/01/24 10:00 12/05/24 08:56 50 MG Furosemide 20 mg DAILY IV 12/01/24 10:00 12/05/24 08:46 20 MG Nystatin 5 ml QID MT 12/01/24 18:00 12/05/24 21:53 5 ML Laboratory Results Laboratory Tests 12/05/24 05:48 Chemistry Test 12/05/24 05:48 Calcium Level 7.9 mg/dL (8.7-10.4) L Urinalysis Test 12/01/24 02:00 Urine Color Yellow (Yellow) Urine Clarity Turbid (Clear) H Urine pH 5.5 (5.0-9.0) Urine Specific [place] 1.025 (1.001-1.035) Urine Protein Trace (Negative) H Urine Ketones Negative (Negative) Urine Blood 2+ /uL (Negative) H Urine Nitrite Negative (Negative) Urine Bilirubin Negative (Negative) Urine Urobilinogen Normal mg/dL (Negative) Urine Leukocyte Esterase Negative /uL (Negative) Urine RBC 4 /hpf (0 - 4) Urine Microscopic WBC 2 /HPF (0-5) Urine Squamous Epithelial Cells Mod /hpf (<5) Urine Bacteria None seen /hpf (None Seen) Urine Glucose Normal mg/dL (Normal) Microbiology Microbiology Date/Time Source Procedure Growth Status 12/01/24 02:00 Urine - Catheterized Urine Culture - Final Complete 11/29/24 16:25 Blood Blood Culture - Final Escherichia coli Complete Assessment/Plan Assessment/Plan Impression: Acute hypoxic respiratory failure Dependence on supplemental oxygen Pneumonia, likely gram negative Pleural effusion Atelectasis Elevated D-dimer. Ruled out PE/DVT. Wheezing Obesity, BMI 34.4 Events: Remains on supplemental oxygen, 3 LPM NC Taper O2 as tolerated Continue bronchodilators Continue antibiotics Incentive spirometry Protonix for GI ppx Lovenox for DVT ppx Diurese with Lasix - maintain euvolemia Monitor renal function Assess for home O2 requirements Disposition per hospitalist. Arranging SNF placement. Labs and imaging reviewed. Rest of plan as noted below. Plan: Supplemental oxygen Titrate to keep O2 sats above 92%. CXR showed pulmonary vascular congestion, bilateral airspace opacities. Small bilateral pleural effusions present. RLE venous Doppler revealed no DVT. Elevated troponin - Cardiology recs appreciated. Echo revealed EF of 55%; mild LVH; mild diastolic dysfunction. Continue bronchodilators. Continue antibiotics Follow up cultures Blood cx positive for GNRs. Bacteremia with E.coli Sensitivities reviewed; ID recommendations appreciated. Viral panel negative. Incentive spirometry Monitor hemoglobin. Transfuse if less than 7.0 g/dL. Follow up Ortho recommendations Diurese to euvolemia w/ Lasix Monitor renal function. Monitor electrolytes. Supplement as necessary. Monitor ins and outs. Diet and lifestyle modifications for weight reduction Obesity complicates all care GI prophylaxis - Protonix DVT prophylaxis - Lovenox. Prognosis: Poor given patient's multiple co-morbidities. Rest of plan per hospitalist and other consultants. Thank you, Dr. Rodriguez, for allowing me to participate in this patient's care. Further recommendations will depend on the patient's clinical course. Please do not hesitate to contact me if you have any questions or concerns. This medical document was created using an electronic medical record system with [employer] dictation system. Although these documentations are being carefully reviewed, there may still be some phonetic and typographical changes. The errors are purely typographical, due to imperfection on the software program, and do not reflect any compromise in the patient's medical care. Plan discussed with: Patient, Other (DESIRE [place]) Date of Service: Dec 05, 2024 Billing Provider: SHAWN HOUSE MD Common Visit Codes: [id number] INP/OBS CARE(HIGH) SHAWN HOUSE MD Dec 05, 2024 23:25
[2024-12-06] VITALS (11 sets, daily range): BP systolic 115–150; BP diastolic 56–78; PULSE 84–94; RESP 16–19; TEMP 98–99.2; O2SAT 94–99
[2024-12-06 06:09] LABS: Hematocrit 30.0 % (36.0-46.0); Hemoglobin 10.4 g/dL (12.2-16.2); Mean Corpuscular Hemoglobin 32.2 pg (28.0-32.0); Mean Corpuscular Volume 93.0 fL (80.0-100.0); Nucleated Red Blood Cells % 0.0 %
[2024-12-06 06:16] LABS: Chloride 100 mmol/L (98-107)
[2024-12-06 06:17] LABS: Anion Gap 8 (5-15); Carbon Dioxide 27 mmol/L (20-31)
[2024-12-06 06:22] LABS: BUN/Creatinine Ratio 14.1 (10.0-20.0); Blood Urea Nitrogen 9 mg/dL (9-23); Calcium 7.9 mg/dL (8.7-10.4); Glucose 105 mg/dL (74-106); Potassium 3.4 mmol/L (3.5-5.1); Sodium 135 mmol/L (136-145)
[2024-12-06] MEDS: POTASSIUM CHL 20 Meq TABLET PO ONE (14:07)
[2024-12-06] MEDS: FLEET ENEMA(ADULT) 135 ML PR ONE (14:08)
--- NOTE | 2024-12-06 19:26 | DVHPN2 ---
Progress Note - Dictate Date Seen: Dec 06, 2024 Medical Necessity Reason Pt with a Central, PICC or Fol: No Subjective Patient was seen and evaluated in follow up. Patient is stable on 3 LPM NC. Patient is complaining of constipation. K 3.4, potassium was replaced. Telemetry reviewed. vital signs Vital Sign Date Time Temp Pulse Resp B/P (MAP) Pulse Ox O2 Delivery O2 Flow Rate FiO2 12/06/24 17:00 98.8 94 18 150/78 (102) 98 98.8 12/06/24 10:00 Nasal Cannula 3.0 12/06/24 10:00 32 Total Intake and Output 12/05/24 12/05/24 12/06/24 15:00 23:00 07:00 Intake Total 100 ml 455 ml 700 ml Balance 100 ml 455 ml 700 ml medications Current Medications Medications Dose Ordered Sig/Mike Route Start Time Stop Time Status Last Admin Dose Admin Sodium Chloride 10 ml Q8HR IV 11/25/24 22:00 12/06/24 14:07 10 ML Docusate Sodium 100 mg BIDPRN PRN PO 11/25/24 18:45 Acetaminophen 650 mg Q6HP PRN PO 11/25/24 18:45 12/06/24 17:30 650 MG Acetaminophen/ Hydrocodone Bitart 1 tab Q4HP PRN PO 11/25/24 18:45 11/29/24 01:54 1 TAB Ondansetron HCl 4 mg Q4HP PRN IV 11/25/24 18:45 Morphine Sulfate 2 mg Q4HPRN PRN IV 11/25/24 18:45 12/03/24 04:05 2 MG Enoxaparin Sodium 40 mg DAILY SC 11/26/24 10:00 12/06/24 08:15 40 MG Pantoprazole Sodium 40 mg DAILY@0700 PO 11/26/24 07:00 12/06/24 06:01 40 MG Aspirin 81 mg DAILY PO 11/30/24 10:00 12/06/24 08:13 81 MG Atorvastatin Calcium 40 mg HS PO 11/29/24 22:00 12/05/24 21:53 40 MG Piperacillin Sod/ Tazobactam Sod 100 ml @ 25 mls/hr Q8HR IV 11/30/24 06:00 12/06/24 14:11 25 MLS/HR Losartan Potassium 50 mg DAILY PO 12/01/24 10:00 12/06/24 08:14 50 MG Furosemide 20 mg DAILY IV 12/01/24 10:00 12/05/24 08:46 20 MG Nystatin 5 ml QID MT 12/01/24 18:00 12/06/24 17:30 5 ML objective GENERAL: Alert and oriented x 3. No acute distress. Obese. EYES: PERRL, EOMI. Anicteric. HENT: Moist mucous membranes. LUNGS: Clear to auscultation bilaterally. CARDIOVASCULAR: Regular rate and rhythm. ABDOMEN: Soft, non-tender and non-distended. EXTREMITIES: Nonpitting edema to bilateral lower legs. NEUROLOGIC: No focal neurological deficits. SKIN: Warm, dry. laboratory and microbiology Laboratory Tests 12/06/24 05:41 Test 12/06/24 05:41 Range/Units Serum Glucose 105 74-106 mg/dL Problem List NSTEMI. Rule out structural heart disease. Coronary artery disease s/p PTCA's X 4 LITA (on ASA). Hypertension. Dyslipidemia. Thrombocytopenia. Bacteremia. Obesity. Assessment/Plan Continued all current supportive medical care. Morphine and Tylenol for pain management. Aspirin. DVT and GI prophylactics. Diuretics with Lasix. Losartan. IV antibiotics as ordered. Additional plan as per the hospital course. Dietary Evaluation Review Comments: 1) Add cardiac restriction to diet 2) Encourage optimal PO intake 3) Refer to outpatient RD for weight management 4) Follow-up with cardiolgoy and orthopedic surgeon 5) Continue to monitor I&O, labs, and skin integrity Expected Outcomes/Goals: 1) appetite and labs to improve 2) gradual wt loss 3) f/u in 3-5 days Plan discussed with: Patient NOLVIA CASTRO MD Dec 06, 2024 19:26
--- NOTE | 2024-12-06 21:50 | DVHPN2 ---
Subjective DOS: 12/06/2024 Patient seen and examined at bedside. Remains on supplemental oxygen Overnight events reviewed. Reviewed: Care Plan, H&P, Labs, Medications, Previous Orders, Radiology Changes from previous H/P or p: No Changes Objective Vitals Vital Signs Date Time Temp Pulse Resp B/P (MAP) Pulse Ox O2 Delivery O2 Flow Rate FiO2 12/06/24 21:00 98.5 84 19 115/56 (75) 98 98.5 12/06/24 10:00 Nasal Cannula 3.0 12/06/24 10:00 32 Intake/Output Intake and Output 12/06/24 07:00 Intake Total 1255 ml Balance 1255 ml Intake Oral 955 ml IV Total 300 ml # Voids 4 # Bowel Movements 1 General Appearance: Alert, Oriented X3, Cooperative, No acute distress HEENT: Atraumatic Neck: Supple Lungs: Clear to auscultation, Other (Decreased air entry bilaterally) Cardiovascular: Normal S1, Normal S2, Other (Tachycardia) Abdomen: Normal bowel sounds, Soft, No tenderness Extremities: No edema Neuro: Normal speech, Cranial nerves 3-12 NL Psych/Mental Status: Mental status NL, Mood NL Medications Current Medications Medications Dose Ordered Sig/Mike Route Start Time Stop Time Status Last Admin Dose Admin Sodium Chloride 10 ml Q8HR IV 11/25/24 22:00 12/06/24 14:07 10 ML Docusate Sodium 100 mg BIDPRN PRN PO 11/25/24 18:45 Acetaminophen 650 mg Q6HP PRN PO 11/25/24 18:45 12/06/24 17:30 650 MG Acetaminophen/ Hydrocodone Bitart 1 tab Q4HP PRN PO 11/25/24 18:45 11/29/24 01:54 1 TAB Ondansetron HCl 4 mg Q4HP PRN IV 11/25/24 18:45 Morphine Sulfate 2 mg Q4HPRN PRN IV 11/25/24 18:45 12/03/24 04:05 2 MG Enoxaparin Sodium 40 mg DAILY SC 11/26/24 10:00 12/06/24 08:15 40 MG Pantoprazole Sodium 40 mg DAILY@0700 PO 11/26/24 07:00 12/06/24 06:01 40 MG Aspirin 81 mg DAILY PO 11/30/24 10:00 12/06/24 08:13 81 MG Atorvastatin Calcium 40 mg HS PO 11/29/24 22:00 12/05/24 21:53 40 MG Piperacillin Sod/ Tazobactam Sod 100 ml @ 25 mls/hr Q8HR IV 11/30/24 06:00 12/06/24 14:11 25 MLS/HR Losartan Potassium 50 mg DAILY PO 12/01/24 10:00 12/06/24 08:14 50 MG Furosemide 20 mg DAILY IV 12/01/24 10:00 12/05/24 08:46 20 MG Nystatin 5 ml QID MT 12/01/24 18:00 12/06/24 17:30 5 ML Laboratory Results Laboratory Tests 12/06/24 05:41 Chemistry Test 12/06/24 05:41 Calcium Level 7.9 mg/dL (8.7-10.4) L Urinalysis Test 12/01/24 02:00 Urine Color Yellow (Yellow) Urine Clarity Turbid (Clear) H Urine pH 5.5 (5.0-9.0) Urine Specific [place] 1.025 (1.001-1.035) Urine Protein Trace (Negative) H Urine Ketones Negative (Negative) Urine Blood 2+ /uL (Negative) H Urine Nitrite Negative (Negative) Urine Bilirubin Negative (Negative) Urine Urobilinogen Normal mg/dL (Negative) Urine Leukocyte Esterase Negative /uL (Negative) Urine RBC 4 /hpf (0 - 4) Urine Microscopic WBC 2 /HPF (0-5) Urine Squamous Epithelial Cells Mod /hpf (<5) Urine Bacteria None seen /hpf (None Seen) Urine Glucose Normal mg/dL (Normal) Microbiology Microbiology Date/Time Source Procedure Growth Status 12/01/24 02:00 Urine - Catheterized Urine Culture - Final Complete 11/29/24 16:25 Blood Blood Culture - Final Escherichia coli Complete Assessment/Plan Assessment/Plan Impression: Acute hypoxic respiratory failure Dependence on supplemental oxygen Pneumonia, likely gram negative Pleural effusion Atelectasis Elevated D-dimer. Ruled out PE/DVT. Wheezing Obesity, BMI 34.4 Events: Remains on supplemental oxygen, 3 LPM NC Taper O2 as tolerated Continue antibiotics Incentive spirometry Chest/abdomen x-ray showed no e/o bowel obstruction. Significant for mild cardiomegaly. Protonix for GI ppx Lovenox for DVT ppx Monitor renal function Monitor electrolytes, supplement as necessary Potassium supplementation Physical therapy. Assess and arrange for home O2 Disposition per hospitalist. Arranging SNF placement. Labs and imaging reviewed. Rest of plan as noted below. Plan: Supplemental oxygen Titrate to keep O2 sats above 92%. RLE venous Doppler revealed no DVT. Elevated troponin - Cardiology recs appreciated. Echo revealed EF of 55%; mild LVH; mild diastolic dysfunction. Bronchodilators PRN Incentive spirometry Continue antibiotics Follow up cultures Blood cx positive for GNRs. Bacteremia with E.coli Sensitivities reviewed; ID recommendations appreciated. Viral panel negative. Monitor hemoglobin. Transfuse if less than 7.0 g/dL. Follow up Ortho recommendations Maintain euvolemia Monitor renal function. Monitor electrolytes. Supplement as necessary. Monitor ins and outs. Diet and lifestyle modifications for weight reduction Obesity complicates all care GI prophylaxis - Protonix DVT prophylaxis - Lovenox. Prognosis: Poor given patient's multiple co-morbidities. Rest of plan per hospitalist and other consultants. Thank you, Dr. Rodriguez, for allowing me to participate in this patient's care. Further recommendations will depend on the patient's clinical course. Please do not hesitate to contact me if you have any questions or concerns. This medical document was created using an electronic medical record system with [employer] dictation system. Although these documentations are being carefully reviewed, there may still be some phonetic and typographical changes. The errors are purely typographical, due to imperfection on the software program, and do not reflect any compromise in the patient's medical care. Plan discussed with: Other (DESIRE [place]) Date of Service: Dec 06, 2024 Billing Provider: SHAWN HOUSE MD Common Visit Codes: [id number] INP/OBS CARE(HIGH) SHAWN HOUSE MD Dec 06, 2024 21:50
--- NOTE | 2024-12-06 22:33 | DVHPN2 ---
Subjective The patient is seen and examined at bedside. Still complain of knee pain. Patient also complains of constipation. Patient already on colace and miralax PRN. Reviewed: Care Plan, H&P, Labs, Medications, Previous Orders, Radiology Changes from previous H/P or p: No Changes Objective Vitals Vital Signs Date Time Temp Pulse Resp B/P (MAP) Pulse Ox O2 Delivery O2 Flow Rate FiO2 12/06/24 21:00 98.5 84 19 115/56 (75) 98 98.5 12/06/24 20:00 Nasal Cannula* 3 32 Intake/Output Intake and Output 12/06/24 07:00 Intake Total 1255 ml Balance 1255 ml Intake Oral 955 ml IV Total 300 ml # Voids 4 # Bowel Movements 1 General Appearance: Alert, Oriented X3, Cooperative, No acute distress HEENT: Atraumatic Neck: Supple Lungs: Other (Decreased air entry bilaterally with severe expiratory wheezing) Cardiovascular: Normal S1, Normal S2, Other (Tachycardia) Abdomen: Normal bowel sounds, Soft, No tenderness Extremities: No edema Neuro: Normal speech, Cranial nerves 3-12 NL Psych/Mental Status: Mental status NL, Mood NL Medications Current Medications Medications Dose Ordered Sig/Mike Route Start Time Stop Time Status Last Admin Dose Admin Sodium Chloride 10 ml Q8HR IV 11/25/24 22:00 12/06/24 21:47 10 ML Docusate Sodium 100 mg BIDPRN PRN PO 11/25/24 18:45 Acetaminophen 650 mg Q6HP PRN PO 11/25/24 18:45 12/06/24 17:30 650 MG Acetaminophen/ Hydrocodone Bitart 1 tab Q4HP PRN PO 11/25/24 18:45 11/29/24 01:54 1 TAB Ondansetron HCl 4 mg Q4HP PRN IV 11/25/24 18:45 Morphine Sulfate 2 mg Q4HPRN PRN IV 11/25/24 18:45 12/03/24 04:05 2 MG Enoxaparin Sodium 40 mg DAILY SC 11/26/24 10:00 12/06/24 08:15 40 MG Pantoprazole Sodium 40 mg DAILY@0700 PO 11/26/24 07:00 12/06/24 06:01 40 MG Aspirin 81 mg DAILY PO 11/30/24 10:00 12/06/24 08:13 81 MG Atorvastatin Calcium 40 mg HS PO 11/29/24 22:00 12/06/24 21:49 40 MG Piperacillin Sod/ Tazobactam Sod 100 ml @ 25 mls/hr Q8HR IV 11/30/24 06:00 12/06/24 21:48 25 MLS/HR Losartan Potassium 50 mg DAILY PO 12/01/24 10:00 12/06/24 08:14 50 MG Furosemide 20 mg DAILY IV 12/01/24 10:00 12/05/24 08:46 20 MG Nystatin 5 ml QID MT 12/01/24 18:00 12/06/24 21:48 5 ML Laboratory Results Laboratory Tests 12/06/24 05:41 Chemistry Test 12/06/24 05:41 Calcium Level 7.9 mg/dL (8.7-10.4) L Urinalysis Test 12/01/24 02:00 Urine Color Yellow (Yellow) Urine Clarity Turbid (Clear) H Urine pH 5.5 (5.0-9.0) Urine Specific [place] 1.025 (1.001-1.035) Urine Protein Trace (Negative) H Urine Ketones Negative (Negative) Urine Blood 2+ /uL (Negative) H Urine Nitrite Negative (Negative) Urine Bilirubin Negative (Negative) Urine Urobilinogen Normal mg/dL (Negative) Urine Leukocyte Esterase Negative /uL (Negative) Urine RBC 4 /hpf (0 - 4) Urine Microscopic WBC 2 /HPF (0-5) Urine Squamous Epithelial Cells Mod /hpf (<5) Urine Bacteria None seen /hpf (None Seen) Urine Glucose Normal mg/dL (Normal) Microbiology Microbiology Date/Time Source Procedure Growth Status 12/01/24 02:00 Urine - Catheterized Urine Culture - Final Complete 11/29/24 16:25 Blood Blood Culture - Final Escherichia coli Complete Assessment/Plan Assessment/Plan E coli bacteremia sensitive to Zosyn Acute hypoxic respiratory failure due to pulmonary congestion and suspected pneumonia Chest discomfort; to rule out ACS NSTEMI; elevated troponin Elevated D-dimer; PE and DVT ruled out Episodic wheezing with tachycardia Hypertensive heart disease without heart failure Physical deconditioning due to above Thrombocytopenia; unclear etiology Obesity Transfer to telemetry; reviewed EKG that showed no ST-elevation; ordered troponin that came back elevated Cardiology consulted Started aspirin and statin but aspirin was not given due to thrombocytopenia Started on nebulizers Continue oxygen therapy as indicated Started IV antibiotics Advanced Practice Provider consulted for SNF placement for rehab as per Physical Therapy recommendations when medically stable Counseled the patient importance of adopting healthy lifestyle with diet and exercise in order to lose weight Continue antihypertensive medication/s and adjust according to blood pressure monitoring Reviewed previous imaging studies including chest angiogram Reviewed the available lab work Ordered echocardiogram; reviewed old echocardiogram from 2021 that showed no wall abnormalities and no heart failure Ordered blood and urine cultures, we will continuing to monitor blood culture Continuing with nystatin swish and swallow for mouth sores.Continue current antibiotics. Continue rest of supportive care and treatment as she is on. Further clinical management per clinical course and pending echocardiogram results. Constipation: Continue colace and miralax PRN. Will give fleet enema. Continuing current management. Discussed with daughter and son at bedside in length regarding to plan of care. [facility] home facility for rehab when patient medically stable. We will repeat blood culture in am. This medical document was created using an electronic medical record system with [employer] direct computerized dictation system. Although this document has been carefully reviewed, there may still be some phonetic and typographical errors. These areas are purely typographical due to imperfections of the software programs, and do not reflect any compromise in the patient's medical care. Plan discussed with: Patient My Orders Orders - FELECIA VALENCIA MD Procedure Category Date Status Time Blood Culture RANDELL 12/06/24 In Process 11:31 Date of Service: Dec 06, 2024 Billing Provider: FELECIA VALENCIA MD Common Visit Codes: [id number] INP/OBS CARE(HIGH) FELECIA VALENCIA MD Dec 06, 2024 22:33
[2024-12-07] VITALS (9 sets, daily range): BP systolic 132–155; BP diastolic 71–84; PULSE 76–96; RESP 18–20; TEMP 97.9–99.1; O2SAT 96–99
[2024-12-07 06:02] LABS: Hemoglobin 10.6 g/dL (12.2-16.2); Nucleated Red Blood Cells % 0.0 %
[2024-12-07 06:05] LABS: Hematocrit 30.1 % (36.0-46.0); Mean Corpuscular Hemoglobin 32.6 pg (28.0-32.0); Mean Corpuscular Volume 93.1 fL (80.0-100.0)
[2024-12-07 06:07] LABS: Chloride 102 mmol/L (98-107); Potassium 3.6 mmol/L (3.5-5.1); Sodium 138 mmol/L (136-145)
[2024-12-07 06:08] LABS: Anion Gap 10 (5-15); Carbon Dioxide 26 mmol/L (20-31)
[2024-12-07 06:09] LABS: Calcium 8.0 mg/dL (8.7-10.4)
[2024-12-07 06:14] LABS: BUN/Creatinine Ratio 15.3 (10.0-20.0); Blood Urea Nitrogen 9 mg/dL (9-23); Glucose 104 mg/dL (74-106)
--- NOTE | 2024-12-07 11:04 | DVHPN2 ---
Subjective The patient is seen and examined at bedside. Still complain of knee pain. The patient has moved a large bowel movement yesterday after Fleet enema. Reviewed: Care Plan, H&P, Labs, Medications, Previous Orders, Radiology Changes from previous H/P or p: No Changes Objective Vitals Vital Signs Date Time Temp Pulse Resp B/P (MAP) Pulse Ox O2 Delivery O2 Flow Rate FiO2 12/07/24 09:00 99.1 89 18 145/71 (95) 99 99.1 12/07/24 08:00 Nasal Cannula* 3 32 Intake/Output Intake and Output 12/07/24 07:00 Intake Total 865 ml Balance 865 ml Intake Oral 590 ml IV Total 275 ml # Voids 4 # Bowel Movements 2 General Appearance: Alert, Oriented X3, Cooperative, No acute distress HEENT: Atraumatic Neck: Supple Lungs: Clear to auscultation, Other (Decreased air entry bilaterally) Cardiovascular: Normal S1, Normal S2, Other (Tachycardia) Abdomen: Normal bowel sounds, Soft, No tenderness Extremities: No edema Neuro: Normal speech, Cranial nerves 3-12 NL Psych/Mental Status: Mental status NL, Mood NL Medications Current Medications Medications Dose Ordered Sig/Mike Route Start Time Stop Time Status Last Admin Dose Admin Sodium Chloride 10 ml Q8HR IV 11/25/24 22:00 12/07/24 05:39 10 ML Docusate Sodium 100 mg BIDPRN PRN PO 11/25/24 18:45 Acetaminophen 650 mg Q6HP PRN PO 11/25/24 18:45 12/07/24 03:14 650 MG Acetaminophen/ Hydrocodone Bitart 1 tab Q4HP PRN PO 11/25/24 18:45 11/29/24 01:54 1 TAB Ondansetron HCl 4 mg Q4HP PRN IV 11/25/24 18:45 Morphine Sulfate 2 mg Q4HPRN PRN IV 11/25/24 18:45 12/03/24 04:05 2 MG Enoxaparin Sodium 40 mg DAILY SC 11/26/24 10:00 12/07/24 08:24 40 MG Pantoprazole Sodium 40 mg DAILY@0700 PO 11/26/24 07:00 12/07/24 06:21 40 MG Aspirin 81 mg DAILY PO 11/30/24 10:00 12/07/24 08:19 81 MG Atorvastatin Calcium 40 mg HS PO 11/29/24 22:00 12/06/24 21:49 40 MG Piperacillin Sod/ Tazobactam Sod 100 ml @ 25 mls/hr Q8HR IV 11/30/24 06:00 12/07/24 05:40 25 MLS/HR Losartan Potassium 50 mg DAILY PO 12/01/24 10:00 12/07/24 08:19 50 MG Furosemide 20 mg DAILY IV 12/01/24 10:00 12/07/24 08:20 20 MG Nystatin 5 ml QID MT 12/01/24 18:00 12/07/24 05:39 5 ML Laboratory Results Laboratory Tests 12/07/24 04:43 Chemistry Test 12/07/24 04:43 Calcium Level 8.0 mg/dL (8.7-10.4) L Urinalysis Test 12/01/24 02:00 Urine Color Yellow (Yellow) Urine Clarity Turbid (Clear) H Urine pH 5.5 (5.0-9.0) Urine Specific [place] 1.025 (1.001-1.035) Urine Protein Trace (Negative) H Urine Ketones Negative (Negative) Urine Blood 2+ /uL (Negative) H Urine Nitrite Negative (Negative) Urine Bilirubin Negative (Negative) Urine Urobilinogen Normal mg/dL (Negative) Urine Leukocyte Esterase Negative /uL (Negative) Urine RBC 4 /hpf (0 - 4) Urine Microscopic WBC 2 /HPF (0-5) Urine Squamous Epithelial Cells Mod /hpf (<5) Urine Bacteria None seen /hpf (None Seen) Urine Glucose Normal mg/dL (Normal) Microbiology Microbiology Date/Time Source Procedure Growth Status 12/06/24 12:44 Blood Blood Culture - Preliminary Resulted 12/01/24 02:00 Urine - Catheterized Urine Culture - Final Complete Labs and/or images reviewed: Labs reviewed by me Assessment/Plan Assessment/Plan E coli bacteremia sensitive to Zosyn Acute hypoxic respiratory failure due to pulmonary congestion and suspected pneumonia Chest discomfort; to rule out ACS NSTEMI; elevated troponin Elevated D-dimer; PE and DVT ruled out Episodic wheezing with tachycardia Hypertensive heart disease without heart failure Physical deconditioning due to above Thrombocytopenia; unclear etiology Obesity Transfer to telemetry; reviewed EKG that showed no ST-elevation; ordered troponin that came back elevated Cardiology consulted Started aspirin and statin but aspirin was not given due to thrombocytopenia Started on nebulizers Continue oxygen therapy as indicated Started IV antibiotics Access Specialist consulted for SNF placement for rehab as per Physical Therapy recommendations when medically stable Counseled the patient importance of adopting healthy lifestyle with diet and exercise in order to lose weight Continue antihypertensive medication/s and adjust according to blood pressure monitoring Reviewed previous imaging studies including chest angiogram Reviewed the available lab work Ordered echocardiogram; reviewed old echocardiogram from 2021 that showed no wall abnormalities and no heart failure Ordered blood and urine cultures, we will continuing to monitor blood culture Continuing with nystatin swish and swallow for mouth sores.Continue current antibiotics. Continue rest of supportive care and treatment as she is on. Further clinical management per clinical course and pending echocardiogram results. Constipation: Continue colace and miralax PRN. Will give fleet enema. Continuing current management. Discussed with daughter and son at bedside in length regarding to plan of care. [facility] for rehab when patient medically stable. We will repeat blood culture in am. We will follow up with blood culture. Apparently it showed Gram-negative again. We will waiting for the final results. This medical document was created using an electronic medical record system with [employer] direct computerized dictation system. Although this document has been carefully reviewed, there may still be some phonetic and typographical errors. These areas are purely typographical due to imperfections of the software programs, and do not reflect any compromise in the patient's medical care. Plan discussed with: Patient My Orders Orders - FELECIA VALENCIA MD Procedure Category Date Status Time Blood Culture RANDELL 12/06/24 In Process 11:31 Date of Service: Dec 07, 2024 Billing Provider: FELECIA VALENCIA MD Common Visit Codes: [id number] INP/OBS CARE(HIGH) FELECIA VALENCIA MD Dec 07, 2024 11:04
--- NOTE | 2024-12-07 19:17 | DVHPN2 ---
Subjective DOS: 12/07/2024 Patient seen and examined at bedside. Remains on supplemental oxygen Overnight events reviewed. Reviewed: Care Plan, H&P, Labs, Medications, Previous Orders, Radiology Changes from previous H/P or p: No Changes Objective Vitals Vital Signs Date Time Temp Pulse Resp B/P (MAP) Pulse Ox O2 Delivery O2 Flow Rate FiO2 12/07/24 17:00 98.4 94 18 134/76 (95) 98 98.4 12/07/24 10:00 Nasal Cannula 3.0 12/07/24 10:00 32 Intake/Output Intake and Output 12/07/24 07:00 Intake Total 865 ml Balance 865 ml Intake Oral 590 ml IV Total 275 ml # Voids 4 # Bowel Movements 2 General Appearance: Alert, Oriented X3, Cooperative, No acute distress HEENT: Atraumatic Neck: Supple Lungs: Clear to auscultation, Other (Decreased air entry bilaterally) Cardiovascular: Normal S1, Normal S2, Other (Tachycardia) Abdomen: Normal bowel sounds, Soft, No tenderness Extremities: No edema Neuro: Normal speech, Cranial nerves 3-12 NL Psych/Mental Status: Mental status NL, Mood NL Medications Current Medications Medications Dose Ordered Sig/Mike Route Start Time Stop Time Status Last Admin Dose Admin Sodium Chloride 10 ml Q8HR IV 11/25/24 22:00 12/07/24 14:13 10 ML Docusate Sodium 100 mg BIDPRN PRN PO 11/25/24 18:45 Acetaminophen 650 mg Q6HP PRN PO 11/25/24 18:45 12/07/24 11:40 650 MG Acetaminophen/ Hydrocodone Bitart 1 tab Q4HP PRN PO 11/25/24 18:45 11/29/24 01:54 1 TAB Ondansetron HCl 4 mg Q4HP PRN IV 11/25/24 18:45 Morphine Sulfate 2 mg Q4HPRN PRN IV 11/25/24 18:45 12/03/24 04:05 2 MG Pantoprazole Sodium 40 mg DAILY@0700 PO 11/26/24 07:00 12/07/24 06:21 40 MG Aspirin 81 mg DAILY PO 11/30/24 10:00 12/07/24 08:19 81 MG Atorvastatin Calcium 40 mg HS PO 11/29/24 22:00 12/06/24 21:49 40 MG Piperacillin Sod/ Tazobactam Sod 100 ml @ 25 mls/hr Q8HR IV 11/30/24 06:00 12/07/24 14:17 25 MLS/HR Losartan Potassium 50 mg DAILY PO 12/01/24 10:00 12/07/24 08:19 50 MG Furosemide 20 mg DAILY IV 12/01/24 10:00 12/07/24 08:20 20 MG Nystatin 5 ml QID MT 12/01/24 18:00 12/07/24 17:30 5 ML Laboratory Results Laboratory Tests 12/07/24 04:43 Chemistry Test 12/07/24 04:43 Calcium Level 8.0 mg/dL (8.7-10.4) L Urinalysis Test 12/01/24 02:00 Urine Color Yellow (Yellow) Urine Clarity Turbid (Clear) H Urine pH 5.5 (5.0-9.0) Urine Specific [place] 1.025 (1.001-1.035) Urine Protein Trace (Negative) H Urine Ketones Negative (Negative) Urine Blood 2+ /uL (Negative) H Urine Nitrite Negative (Negative) Urine Bilirubin Negative (Negative) Urine Urobilinogen Normal mg/dL (Negative) Urine Leukocyte Esterase Negative /uL (Negative) Urine RBC 4 /hpf (0 - 4) Urine Microscopic WBC 2 /HPF (0-5) Urine Squamous Epithelial Cells Mod /hpf (<5) Urine Bacteria None seen /hpf (None Seen) Urine Glucose Normal mg/dL (Normal) Microbiology Microbiology Date/Time Source Procedure Growth Status 12/06/24 12:51 Blood Blood Culture - Preliminary NO GROWTH AFTER 24 HOURS OF INCUBATION. Resulted 12/01/24 02:00 Urine - Catheterized Urine Culture - Final Complete Assessment/Plan Assessment/Plan Impression: Acute hypoxic respiratory failure Dependence on supplemental oxygen Pneumonia, likely gram negative Pleural effusion Atelectasis Elevated D-dimer. Ruled out PE/DVT. Wheezing Obesity, BMI 34.4 Events: Remains on supplemental oxygen, 2 LPM NC Taper O2 as tolerated Continue bronchodilators Continue antibiotics - complete course Incentive spirometry Chest/abdomen x-ray on 12/06 showed no e/o bowel obstruction. Significant for mild cardiomegaly. Protonix for GI ppx Lovenox for DVT ppx Diurese with Lasix Monitor renal function Monitor electrolytes, supplement as necessary Physical therapy. Assess and arrange for home O2 Disposition per hospitalist. Arranging SNF placement. Labs and imaging reviewed. Rest of plan as noted below. Plan: Supplemental oxygen Titrate to keep O2 sats above 92%. RLE venous Doppler revealed no DVT. Elevated troponin - Cardiology recs appreciated. Echo revealed EF of 55%; mild LVH; mild diastolic dysfunction. Bronchodilators PRN Incentive spirometry Continue antibiotics Follow up cultures Blood cx positive for GNRs. Bacteremia with E.coli Sensitivities reviewed; ID recommendations appreciated. Viral panel negative. Monitor hemoglobin. Transfuse if less than 7.0 g/dL. Follow up Ortho recommendations Maintain euvolemia Monitor renal function. Monitor electrolytes. Supplement as necessary. Monitor ins and outs. Diet and lifestyle modifications for weight reduction Obesity complicates all care GI prophylaxis - Protonix DVT prophylaxis - Lovenox. Prognosis: Poor given patient's multiple co-morbidities. Rest of plan per hospitalist and other consultants. Thank you, Dr. Rodriguez, for allowing me to participate in this patient's care. Further recommendations will depend on the patient's clinical course. Please do not hesitate to contact me if you have any questions or concerns. This medical document was created using an electronic medical record system with [employer] dictation system. Although these documentations are being carefully reviewed, there may still be some phonetic and typographical changes. The errors are purely typographical, due to imperfection on the software program, and do not reflect any compromise in the patient's medical care. Plan discussed with: Other (DESIRE [place]) Visit Coding Pulmonary Billing Provider: SHAWN HOUSE MD Date of Service if different f: Dec 07, 2024 Common Visit Codes: [id number] INP/OBS CARE(HIGH) SHAWN HOUSE MD Dec 07, 2024 19:17
--- NOTE | 2024-12-07 23:58 | DVHPN2 ---
Progress Note - Dictate Date Seen: Dec 07, 2024 Medical Necessity Reason Pt with a Central, PICC or Fol: No Subjective Patient was seen and evaluated in follow up. Patient is on 3 LPM NC. Patient is complaining of knee pain. Patient reports a large BM after fleet enema yesterday. Telemetry reviewed. vital signs Vital Sign Date Time Temp Pulse Resp B/P (MAP) Pulse Ox O2 Delivery O2 Flow Rate FiO2 12/07/24 21:00 99.0 94 20 155/84 (107) 98 99.0 12/07/24 20:00 Nasal Cannula* 3 32 Total Intake and Output 12/06/24 12/06/24 12/07/24 15:00 23:00 07:00 Intake Total 100 ml 475 ml 290 ml Balance 100 ml 475 ml 290 ml medications Current Medications Medications Dose Ordered Sig/Mike Route Start Time Stop Time Status Last Admin Dose Admin Sodium Chloride 10 ml Q8HR IV 11/25/24 22:00 12/07/24 21:59 10 ML Docusate Sodium 100 mg BIDPRN PRN PO 11/25/24 18:45 Acetaminophen 650 mg Q6HP PRN PO 11/25/24 18:45 12/07/24 22:09 650 MG Acetaminophen/ Hydrocodone Bitart 1 tab Q4HP PRN PO 11/25/24 18:45 11/29/24 01:54 1 TAB Ondansetron HCl 4 mg Q4HP PRN IV 11/25/24 18:45 Morphine Sulfate 2 mg Q4HPRN PRN IV 11/25/24 18:45 12/03/24 04:05 2 MG Pantoprazole Sodium 40 mg DAILY@0700 PO 11/26/24 07:00 12/07/24 06:21 40 MG Aspirin 81 mg DAILY PO 11/30/24 10:00 12/07/24 08:19 81 MG Atorvastatin Calcium 40 mg HS PO 11/29/24 22:00 12/07/24 22:00 40 MG Piperacillin Sod/ Tazobactam Sod 100 ml @ 25 mls/hr Q8HR IV 11/30/24 06:00 12/07/24 21:59 25 MLS/HR Losartan Potassium 50 mg DAILY PO 12/01/24 10:00 12/07/24 08:19 50 MG Furosemide 20 mg DAILY IV 12/01/24 10:00 12/07/24 08:20 20 MG Nystatin 5 ml QID MT 12/01/24 18:00 12/07/24 21:59 5 ML objective GENERAL: Alert and oriented x 3. No acute distress. Obese. EYES: PERRL, EOMI. Anicteric. HENT: Moist mucous membranes. LUNGS: Clear to auscultation bilaterally. CARDIOVASCULAR: Regular rate and rhythm. ABDOMEN: Soft, non-tender and non-distended. EXTREMITIES: Nonpitting edema to bilateral lower legs. NEUROLOGIC: No focal neurological deficits. SKIN: Warm, dry. laboratory and microbiology Laboratory Tests 12/07/24 04:43 Test 12/07/24 04:43 Range/Units Serum Glucose 104 74-106 mg/dL Problem List NSTEMI. Rule out structural heart disease. Coronary artery disease s/p PTCA's X 4 LITA (on ASA). Hypertension. Dyslipidemia. Thrombocytopenia. Bacteremia. Obesity. Assessment/Plan Continued all current supportive medical care. Morphine and Tylenol for pain management. Aspirin. DVT and GI prophylactics. Diuretics with Lasix. Losartan. IV antibiotics as ordered. Additional plan as per the hospital course. Dietary Evaluation Review Comments: 1) Add cardiac restriction to diet 2) Encourage optimal PO intake 3) Refer to outpatient RD for weight management 4) Follow-up with cardiolgoy and orthopedic surgeon 5) Continue to monitor I&O, labs, and skin integrity Expected Outcomes/Goals: 1) appetite and labs to improve 2) gradual wt loss 3) f/u in 3-5 days Plan discussed with: Patient NOLVIA CASTRO MD Dec 07, 2024 23:58
[2024-12-08] VITALS (9 sets, daily range): BP systolic 123–140; BP diastolic 56–74; PULSE 64–98; RESP 16–18; TEMP 97.7–98.7; O2SAT 94–98
[2024-12-08 06:01] LABS: Hemoglobin 10.4 g/dL (12.2-16.2); Nucleated Red Blood Cells % 0.0 %
[2024-12-08 06:06] LABS: Hematocrit 29.5 % (36.0-46.0); Mean Corpuscular Hemoglobin 32.6 pg (28.0-32.0); Mean Corpuscular Volume 92.2 fL (80.0-100.0)
[2024-12-08 06:07] LABS: Chloride 100 mmol/L (98-107); Sodium 139 mmol/L (136-145)
[2024-12-08 06:08] LABS: Anion Gap 11 (5-15); Carbon Dioxide 28 mmol/L (20-31)
[2024-12-08 06:10] LABS: Calcium 8.0 mg/dL (8.7-10.4); Potassium 3.3 mmol/L (3.5-5.1)
[2024-12-08 06:13] LABS: BUN/Creatinine Ratio 16.1 (10.0-20.0); Glucose 90 mg/dL (74-106)
[2024-12-08 06:35] LABS: Blood Urea Nitrogen 9 mg/dL (9-23)
--- NOTE | 2024-12-08 13:09 | DVHPN2 ---
Reviewed: Care Plan, H&P, Labs, Medications, Previous Orders, Radiology Changes from previous H/P or p: No Changes General: Per HPI Objective Vitals Vital Signs Date Time Temp Pulse Resp B/P (MAP) Pulse Ox O2 Delivery O2 Flow Rate FiO2 12/08/24 11:42 150/75 12/08/24 10:00 97 Nasal Cannula 2.0 12/08/24 10:00 28 12/08/24 08:41 97.7 64 16 97.7 Intake/Output Intake and Output 12/08/24 07:00 Intake Total 1037 ml Balance 1037 ml Intake Oral 737 ml IV Total 300 ml # Voids 5 # Bowel Movements 3 General Appearance: Alert, Oriented X3, Cooperative, No acute distress HEENT: Atraumatic Neck: Supple Lungs: Clear to auscultation, Other (Decreased air entry bilaterally) Cardiovascular: Normal S1, Normal S2, Other (Tachycardia) Abdomen: Normal bowel sounds, Soft, No tenderness Extremities: No edema Neuro: Normal speech, Cranial nerves 3-12 NL Psych/Mental Status: Mental status NL, Mood NL Medications Current Medications Medications Dose Ordered Sig/Mike Route Start Time Stop Time Status Last Admin Dose Admin Sodium Chloride 10 ml Q8HR IV 11/25/24 22:00 12/08/24 05:39 10 ML Docusate Sodium 100 mg BIDPRN PRN PO 11/25/24 18:45 Acetaminophen 650 mg Q6HP PRN PO 11/25/24 18:45 12/08/24 06:52 650 MG Acetaminophen/ Hydrocodone Bitart 1 tab Q4HP PRN PO 11/25/24 18:45 11/29/24 01:54 1 TAB Ondansetron HCl 4 mg Q4HP PRN IV 11/25/24 18:45 Morphine Sulfate 2 mg Q4HPRN PRN IV 11/25/24 18:45 12/03/24 04:05 2 MG Pantoprazole Sodium 40 mg DAILY@0700 PO 11/26/24 07:00 12/08/24 05:39 40 MG Aspirin 81 mg DAILY PO 11/30/24 10:00 12/08/24 11:43 81 MG Atorvastatin Calcium 40 mg HS PO 11/29/24 22:00 12/07/24 22:00 40 MG Piperacillin Sod/ Tazobactam Sod 100 ml @ 25 mls/hr Q8HR IV 11/30/24 06:00 12/08/24 05:39 25 MLS/HR Losartan Potassium 50 mg DAILY PO 12/01/24 10:00 12/08/24 11:40 50 MG Furosemide 20 mg DAILY IV 12/01/24 10:00 12/08/24 11:42 20 MG Nystatin 5 ml QID MT 12/01/24 18:00 12/08/24 11:39 5 ML Laboratory Results Laboratory Tests 12/08/24 04:51 Chemistry Test 12/08/24 04:51 Calcium Level 8.0 mg/dL (8.7-10.4) L Urinalysis Test 12/01/24 02:00 Urine Color Yellow (Yellow) Urine Clarity Turbid (Clear) H Urine pH 5.5 (5.0-9.0) Urine Specific [place] 1.025 (1.001-1.035) Urine Protein Trace (Negative) H Urine Ketones Negative (Negative) Urine Blood 2+ /uL (Negative) H Urine Nitrite Negative (Negative) Urine Bilirubin Negative (Negative) Urine Urobilinogen Normal mg/dL (Negative) Urine Leukocyte Esterase Negative /uL (Negative) Urine RBC 4 /hpf (0 - 4) Urine Microscopic WBC 2 /HPF (0-5) Urine Squamous Epithelial Cells Mod /hpf (<5) Urine Bacteria None seen /hpf (None Seen) Urine Glucose Normal mg/dL (Normal) Microbiology Microbiology Date/Time Source Procedure Growth Status 12/06/24 12:51 Blood Blood Culture - Preliminary NO GROWTH AFTER 48 HOURS OF INCUBATION. Resulted 12/01/24 02:00 Urine - Catheterized Urine Culture - Final Complete Assessment/Plan Assessment/Plan E coli bacteremia sensitive to Zosyn Acute hypoxic respiratory failure due to pulmonary congestion and suspected pneumonia Chest discomfort; to rule out ACS NSTEMI; elevated troponin Elevated D-dimer; PE and DVT ruled out Episodic wheezing with tachycardia Hypertensive heart disease without heart failure Physical deconditioning due to above Thrombocytopenia; unclear etiology Obesity Transfer to telemetry; reviewed EKG that showed no ST-elevation; ordered troponin that came back elevated Cardiology consulted Started aspirin and statin but aspirin was not given due to thrombocytopenia Started on nebulizers Continue oxygen therapy as indicated Started IV antibiotics Material Processor consulted for SNF placement for rehab as per Physical Therapy recommendations when medically stable Counseled the patient importance of adopting healthy lifestyle with diet and exercise in order to lose weight Continue antihypertensive medication/s and adjust according to blood pressure monitoring Reviewed previous imaging studies including chest angiogram Reviewed the available lab work Ordered echocardiogram; reviewed old echocardiogram from 2021 that showed no wall abnormalities and no heart failure Ordered blood and urine cultures, we will continuing to monitor blood culture Continuing with nystatin swish and swallow for mouth sores.Continue current antibiotics. Continue rest of supportive care and treatment as she is on. Further clinical management per clinical course and pending echocardiogram results. Constipation: Continue colace and miralax PRN. Will give fleet enema. Continuing current management. Discussed with daughter and son at bedside in length regarding to plan of care. [facility] facility for rehab when patient medically stable. We will repeat blood culture in am. We will follow up with blood culture. Apparently it showed Gram-negative again. We will waiting for the final results. 12/08/2024: pending SNF in [place] Plan discussed with: Patient Date of Service: Dec 08, 2024 Billing Provider: BRYAN SMALL DO Common Visit Codes: [id number] INP/OBS CARE(HIGH) BRYAN SMALL DO Dec 08, 2024 13:09
[2024-12-08] MEDS: POTASSIUM EFFERVESENT TAB 25 MEQ PO ONE (15:43)
--- NOTE | 2024-12-08 21:23 | DVHPN2 ---
Subjective DOS: 12/08/2024 Patient seen and examined at bedside. Remains on supplemental oxygen Overnight events reviewed. Reviewed: Care Plan, H&P, Labs, Medications, Previous Orders, Radiology Changes from previous H/P or p: No Changes General: Per HPI Objective Vitals Vital Signs Date Time Temp Pulse Resp B/P (MAP) Pulse Ox O2 Delivery O2 Flow Rate FiO2 12/08/24 21:00 98.5 97 18 140/74 (96) 95 98.5 12/08/24 20:00 Nasal Cannula* 1 24 Intake/Output Intake and Output 12/08/24 07:00 Intake Total 1037 ml Balance 1037 ml Intake Oral 737 ml IV Total 300 ml # Voids 5 # Bowel Movements 3 General Appearance: Alert, Oriented X3, Cooperative, No acute distress HEENT: Atraumatic Neck: Supple Lungs: Clear to auscultation, Other (Decreased air entry bilaterally) Cardiovascular: Normal S1, Normal S2, Other (Tachycardia) Abdomen: Normal bowel sounds, Soft, No tenderness Extremities: No edema Neuro: Normal speech, Cranial nerves 3-12 NL Psych/Mental Status: Mental status NL, Mood NL Medications Current Medications Medications Dose Ordered Sig/Mike Route Start Time Stop Time Status Last Admin Dose Admin Sodium Chloride 10 ml Q8HR IV 11/25/24 22:00 12/08/24 14:08 10 ML Docusate Sodium 100 mg BIDPRN PRN PO 11/25/24 18:45 Acetaminophen 650 mg Q6HP PRN PO 11/25/24 18:45 12/08/24 14:09 650 MG Acetaminophen/ Hydrocodone Bitart 1 tab Q4HP PRN PO 11/25/24 18:45 11/29/24 01:54 1 TAB Ondansetron HCl 4 mg Q4HP PRN IV 11/25/24 18:45 Morphine Sulfate 2 mg Q4HPRN PRN IV 11/25/24 18:45 12/03/24 04:05 2 MG Pantoprazole Sodium 40 mg DAILY@0700 PO 11/26/24 07:00 12/08/24 05:39 40 MG Aspirin 81 mg DAILY PO 11/30/24 10:00 12/08/24 11:43 81 MG Atorvastatin Calcium 40 mg HS PO 11/29/24 22:00 12/07/24 22:00 40 MG Piperacillin Sod/ Tazobactam Sod 100 ml @ 25 mls/hr Q8HR IV 11/30/24 06:00 12/08/24 14:09 25 MLS/HR Losartan Potassium 50 mg DAILY PO 12/01/24 10:00 12/08/24 11:40 50 MG Furosemide 20 mg DAILY IV 12/01/24 10:00 12/08/24 11:42 20 MG Nystatin 5 ml QID MT 12/01/24 18:00 12/08/24 17:53 5 ML Laboratory Results Laboratory Tests 12/08/24 04:51 Chemistry Test 12/08/24 04:51 Calcium Level 8.0 mg/dL (8.7-10.4) L Urinalysis Test 12/01/24 02:00 Urine Color Yellow (Yellow) Urine Clarity Turbid (Clear) H Urine pH 5.5 (5.0-9.0) Urine Specific [place] 1.025 (1.001-1.035) Urine Protein Trace (Negative) H Urine Ketones Negative (Negative) Urine Blood 2+ /uL (Negative) H Urine Nitrite Negative (Negative) Urine Bilirubin Negative (Negative) Urine Urobilinogen Normal mg/dL (Negative) Urine Leukocyte Esterase Negative /uL (Negative) Urine RBC 4 /hpf (0 - 4) Urine Microscopic WBC 2 /HPF (0-5) Urine Squamous Epithelial Cells Mod /hpf (<5) Urine Bacteria None seen /hpf (None Seen) Urine Glucose Normal mg/dL (Normal) Microbiology Microbiology Date/Time Source Procedure Growth Status 12/06/24 12:51 Blood Blood Culture - Preliminary NO GROWTH AFTER 48 HOURS OF INCUBATION. Resulted 12/01/24 02:00 Urine - Catheterized Urine Culture - Final Complete Assessment/Plan Assessment/Plan Impression: Acute hypoxic respiratory failure Dependence on supplemental oxygen Pneumonia, likely gram negative Pleural effusion Atelectasis Elevated D-dimer. Ruled out PE/DVT. Wheezing Obesity, BMI 34.4 Events: Remains on supplemental oxygen Currently on 2 LPM-->1 LPM NC Taper O2 as tolerated Improving oxygen requirements Continue bronchodilators Continue antibiotics - complete course Incentive spirometry Chest/abdomen x-ray on 12/06 showed no e/o bowel obstruction. Significant for mild cardiomegaly. Protonix for GI ppx Lovenox for DVT ppx Diurese with Lasix Monitor renal function Monitor electrolytes, supplement as necessary Physical therapy. Assess and arrange for home O2 Disposition per hospitalist. Arranging SNF placement. Labs and imaging reviewed. Rest of plan as noted below. Plan: Supplemental oxygen Titrate to keep O2 sats above 92%. RLE venous Doppler revealed no DVT. Elevated troponin - Cardiology recs appreciated. Echo revealed EF of 55%; mild LVH; mild diastolic dysfunction. Bronchodilators PRN Incentive spirometry Continue antibiotics Follow up cultures Bacteremia with E.coli Repeat blood cx show no growth after 48 hours Viral panel negative. Monitor hemoglobin. Transfuse if less than 7.0 g/dL. Follow up Ortho recommendations Maintain euvolemia Monitor renal function. Monitor electrolytes. Supplement as necessary. Monitor ins and outs. Diet and lifestyle modifications for weight reduction Obesity complicates all care GI prophylaxis - Protonix DVT prophylaxis - Lovenox. Prognosis: Poor given patient's multiple co-morbidities. Rest of plan per hospitalist and other consultants. Thank you, Dr. Rodriguez, for allowing me to participate in this patient's care. Further recommendations will depend on the patient's clinical course. Please do not hesitate to contact me if you have any questions or concerns. This medical document was created using an electronic medical record system with [employer] dictation system. Although these documentations are being carefully reviewed, there may still be some phonetic and typographical changes. The errors are purely typographical, due to imperfection on the software program, and do not reflect any compromise in the patient's medical care. Plan discussed with: Patient, Other (DESIRE Leyva) Visit Coding Pulmonary Billing Provider: SHAWN HOUSE MD Date of Service if different f: Dec 08, 2024 Common Visit Codes: [id number] INP/OBS CARE(HIGH) SHAWN HOUSE MD Dec 08, 2024 21:23
--- NOTE | 2024-12-08 23:57 | DVHPN2 ---
Progress Note - Dictate Date Seen: Dec 08, 2024 Medical Necessity Reason Pt with a Central, PICC or Fol: No Subjective Patient was seen and evaluated in follow up. Patient is on 2 LPM NC. Patient is complaining of knee discomfort. CM is working on SNF placement. K 3.3. Telemetry reviewed. vital signs Vital Sign Date Time Temp Pulse Resp B/P (MAP) Pulse Ox O2 Delivery O2 Flow Rate FiO2 12/08/24 17:00 98.7 91 16 123/63 (83) 95 98.7 12/08/24 10:00 Nasal Cannula 2.0 12/08/24 10:00 28 Total Intake and Output 12/07/24 12/07/24 12/08/24 15:00 23:00 07:00 Intake Total 100 ml 337 ml 600 ml Balance 100 ml 337 ml 600 ml medications Current Medications Medications Dose Ordered Sig/Imke Route Start Time Stop Time Status Last Admin Dose Admin Sodium Chloride 10 ml Q8HR IV 11/25/24 22:00 12/08/24 14:08 10 ML Docusate Sodium 100 mg BIDPRN PRN PO 11/25/24 18:45 Acetaminophen 650 mg Q6HP PRN PO 11/25/24 18:45 12/08/24 14:09 650 MG Acetaminophen/ Hydrocodone Bitart 1 tab Q4HP PRN PO 11/25/24 18:45 11/29/24 01:54 1 TAB Ondansetron HCl 4 mg Q4HP PRN IV 11/25/24 18:45 Morphine Sulfate 2 mg Q4HPRN PRN IV 11/25/24 18:45 12/03/24 04:05 2 MG Pantoprazole Sodium 40 mg DAILY@0700 PO 11/26/24 07:00 12/08/24 05:39 40 MG Aspirin 81 mg DAILY PO 11/30/24 10:00 12/08/24 11:43 81 MG Atorvastatin Calcium 40 mg HS PO 11/29/24 22:00 12/07/24 22:00 40 MG Piperacillin Sod/ Tazobactam Sod 100 ml @ 25 mls/hr Q8HR IV 11/30/24 06:00 12/08/24 14:09 25 MLS/HR Losartan Potassium 50 mg DAILY PO 12/01/24 10:00 12/08/24 11:40 50 MG Furosemide 20 mg DAILY IV 12/01/24 10:00 12/08/24 11:42 20 MG Nystatin 5 ml QID MT 12/01/24 18:00 12/08/24 17:53 5 ML objective GENERAL: Alert and oriented x 3. No acute distress. Obese. EYES: PERRL, EOMI. Anicteric. HENT: Moist mucous membranes. LUNGS: Clear to auscultation bilaterally. CARDIOVASCULAR: Regular rate and rhythm. ABDOMEN: Soft, non-tender and non-distended. EXTREMITIES: Nonpitting edema to bilateral lower legs. NEUROLOGIC: No focal neurological deficits. SKIN: Warm, dry. laboratory and microbiology Laboratory Tests 12/08/24 04:51 Test 12/08/24 04:51 Range/Units Serum Glucose 90 74-106 mg/dL Problem List NSTEMI. Rule out structural heart disease. Coronary artery disease s/p PTCA's X 4 LITA (on ASA). Hypertension. Dyslipidemia. Thrombocytopenia. Bacteremia. Obesity. Assessment/Plan Continued all current supportive medical care. Aspirin. Losartan. GI prophylactics. Diuretics with Lasix. IV antibiotics as ordered. Tylenol for pain management. Additional plan as per the hospital course. Dietary Evaluation Review Comments: 1) Add cardiac restriction to diet 2) Encourage optimal PO intake 3) Refer to outpatient RD for weight management 4) Follow-up with cardiolgoy and orthopedic surgeon 5) Continue to monitor I&O, labs, and skin integrity Expected Outcomes/Goals: 1) appetite and labs to improve 2) gradual wt loss 3) f/u in 3-5 days Plan discussed with: Patient NOLVIA CASTRO MD Dec 08, 2024 18:25
[2024-12-09] VITALS (9 sets, daily range): BP systolic 133–150; BP diastolic 65–81; PULSE 91–104; RESP 17–19; TEMP 97.6–99; O2SAT 93–95
--- NOTE | 2024-12-09 14:07 | DVHPN2 ---
Reviewed: Care Plan, H&P, Labs, Medications, Previous Orders, Radiology Changes from previous H/P or p: No Changes General: Per HPI Objective Vitals Vital Signs Date Time Temp Pulse Resp B/P (MAP) Pulse Ox O2 Delivery O2 Flow Rate FiO2 12/09/24 13:00 97.7 91 18 146/77 (100) 94 97.7 12/09/24 10:00 Nasal Cannula* 2 28 Intake/Output Intake and Output 12/09/24 07:00 Intake Total 2155 ml Balance 2155 ml Intake Oral 1950 ml IV Total 205 ml # Voids 5 General Appearance: Alert, Oriented X3, Cooperative, No acute distress HEENT: Atraumatic Neck: Supple Lungs: Clear to auscultation, Other (Decreased air entry bilaterally) Cardiovascular: Normal S1, Normal S2, Other (Tachycardia) Abdomen: Normal bowel sounds, Soft, No tenderness Extremities: No edema Neuro: Normal speech, Cranial nerves 3-12 NL Psych/Mental Status: Mental status NL, Mood NL Medications Current Medications Medications Dose Ordered Sig/Mike Route Start Time Stop Time Status Last Admin Dose Admin Sodium Chloride 10 ml Q8HR IV 11/25/24 22:00 12/09/24 05:58 10 ML Docusate Sodium 100 mg BIDPRN PRN PO 11/25/24 18:45 Acetaminophen 650 mg Q6HP PRN PO 11/25/24 18:45 12/09/24 06:05 650 MG Acetaminophen/ Hydrocodone Bitart 1 tab Q4HP PRN PO 11/25/24 18:45 11/29/24 01:54 1 TAB Ondansetron HCl 4 mg Q4HP PRN IV 11/25/24 18:45 Morphine Sulfate 2 mg Q4HPRN PRN IV 11/25/24 18:45 12/03/24 04:05 2 MG Pantoprazole Sodium 40 mg DAILY@0700 PO 11/26/24 07:00 12/09/24 05:59 40 MG Aspirin 81 mg DAILY PO 11/30/24 10:00 12/09/24 09:20 81 MG Atorvastatin Calcium 40 mg HS PO 11/29/24 22:00 12/08/24 21:38 40 MG Piperacillin Sod/ Tazobactam Sod 100 ml @ 25 mls/hr Q8HR IV 11/30/24 06:00 12/09/24 05:58 25 MLS/HR Losartan Potassium 50 mg DAILY PO 12/01/24 10:00 12/09/24 09:20 50 MG Furosemide 20 mg DAILY IV 12/01/24 10:00 12/09/24 09:19 20 MG Nystatin 5 ml QID MT 12/01/24 18:00 12/09/24 11:32 5 ML Laboratory Results Laboratory Tests 12/08/24 04:51 Urinalysis Test 12/01/24 02:00 Urine Color Yellow (Yellow) Urine Clarity Turbid (Clear) H Urine pH 5.5 (5.0-9.0) Urine Specific [place] 1.025 (1.001-1.035) Urine Protein Trace (Negative) H Urine Ketones Negative (Negative) Urine Blood 2+ /uL (Negative) H Urine Nitrite Negative (Negative) Urine Bilirubin Negative (Negative) Urine Urobilinogen Normal mg/dL (Negative) Urine Leukocyte Esterase Negative /uL (Negative) Urine RBC 4 /hpf (0 - 4) Urine Microscopic WBC 2 /HPF (0-5) Urine Squamous Epithelial Cells Mod /hpf (<5) Urine Bacteria None seen /hpf (None Seen) Urine Glucose Normal mg/dL (Normal) Microbiology Microbiology Date/Time Source Procedure Growth Status 12/06/24 12:51 Blood Blood Culture - Preliminary NO GROWTH AFTER 72 HOURS OF INCUBATION. Resulted 12/01/24 02:00 Urine - Catheterized Urine Culture - Final Complete Assessment/Plan Assessment/Plan E coli bacteremia sensitive to Zosyn Acute hypoxic respiratory failure due to pulmonary congestion and suspected pneumonia Chest discomfort; to rule out ACS NSTEMI; elevated troponin Elevated D-dimer; PE and DVT ruled out Episodic wheezing with tachycardia Hypertensive heart disease without heart failure Physical deconditioning due to above Thrombocytopenia; unclear etiology Obesity Transfer to telemetry; reviewed EKG that showed no ST-elevation; ordered troponin that came back elevated Cardiology consulted Started aspirin and statin but aspirin was not given due to thrombocytopenia Started on nebulizers Continue oxygen therapy as indicated Started IV antibiotics Flexboard Operator consulted for SNF placement for rehab as per Physical Therapy recommendations when medically stable Counseled the patient importance of adopting healthy lifestyle with diet and exercise in order to lose weight Continue antihypertensive medication/s and adjust according to blood pressure monitoring Reviewed previous imaging studies including chest angiogram Reviewed the available lab work Ordered echocardiogram; reviewed old echocardiogram from 2021 that showed no wall abnormalities and no heart failure Ordered blood and urine cultures, we will continuing to monitor blood culture Continuing with nystatin swish and swallow for mouth sores.Continue current antibiotics. Continue rest of supportive care and treatment as she is on. Further clinical management per clinical course and pending echocardiogram results. Constipation: Continue colace and miralax PRN. Will give fleet enema. Continuing current management. Discussed with daughter and son at bedside in length regarding to plan of care. snf home facility for rehab when patient medically stable. We will repeat blood culture in am. We will follow up with blood culture. Apparently it showed Gram-negative again. We will waiting for the final results. 12/08/2024: pending SNF in [place] 12/09/2024: pending SNF, room assigned but waiting for auth Plan discussed with: Patient Date of Service: Dec 09, 2024 Billing Provider: BRYAN SMALL DO Common Visit Codes: [id number] INP/OBS CARE(HIGH) BRYAN SMALL DO Dec 09, 2024 14:07
--- NOTE | 2024-12-09 22:00 | DVHPN2 ---
Progress Note - Dictate Date Seen: Dec 09, 2024 Medical Necessity Reason Pt with a Central, PICC or Fol: No Subjective Patient was seen and evaluated in follow up. No overnight events. Patient is on 2 LPM NC. Patient denies any complaints. Telemetry reviewed. vital signs Vital Sign Date Time Temp Pulse Resp B/P (MAP) Pulse Ox O2 Delivery O2 Flow Rate FiO2 12/09/24 10:00 95 Nasal Cannula* 2 28 12/09/24 09:20 142/77 12/09/24 09:00 97.6 96 18 97.6 Total Intake and Output 12/08/24 12/08/24 12/09/24 15:00 23:00 07:00 Intake Total 455 ml 800 ml 900 ml Balance 455 ml 800 ml 900 ml medications Current Medications Medications Dose Ordered Sig/Mike Route Start Time Stop Time Status Last Admin Dose Admin Sodium Chloride 10 ml Q8HR IV 11/25/24 22:00 12/09/24 05:58 10 ML Docusate Sodium 100 mg BIDPRN PRN PO 11/25/24 18:45 Acetaminophen 650 mg Q6HP PRN PO 11/25/24 18:45 12/09/24 06:05 650 MG Acetaminophen/ Hydrocodone Bitart 1 tab Q4HP PRN PO 11/25/24 18:45 11/29/24 01:54 1 TAB Ondansetron HCl 4 mg Q4HP PRN IV 11/25/24 18:45 Morphine Sulfate 2 mg Q4HPRN PRN IV 11/25/24 18:45 12/03/24 04:05 2 MG Pantoprazole Sodium 40 mg DAILY@0700 PO 11/26/24 07:00 12/09/24 05:59 40 MG Aspirin 81 mg DAILY PO 11/30/24 10:00 12/09/24 09:20 81 MG Atorvastatin Calcium 40 mg HS PO 11/29/24 22:00 12/08/24 21:38 40 MG Piperacillin Sod/ Tazobactam Sod 100 ml @ 25 mls/hr Q8HR IV 11/30/24 06:00 12/09/24 05:58 25 MLS/HR Losartan Potassium 50 mg DAILY PO 12/01/24 10:00 12/09/24 09:20 50 MG Furosemide 20 mg DAILY IV 12/01/24 10:00 12/09/24 09:19 20 MG Nystatin 5 ml QID MT 12/01/24 18:00 12/09/24 11:32 5 ML objective GENERAL: Alert and oriented x 3. No acute distress. Obese. EYES: PERRL, EOMI. Anicteric. HENT: Moist mucous membranes. LUNGS: Clear to auscultation bilaterally. CARDIOVASCULAR: Regular rate and rhythm. ABDOMEN: Soft, non-tender and non-distended. EXTREMITIES: Nonpitting edema to bilateral lower legs. NEUROLOGIC: No focal neurological deficits. SKIN: Warm, dry. laboratory and microbiology Laboratory Tests 12/08/24 04:51 Test 12/08/24 04:51 Range/Units Serum Glucose 90 74-106 mg/dL Problem List NSTEMI. Rule out structural heart disease. Coronary artery disease s/p PTCA's X 4 LITA (on ASA). Hypertension. Dyslipidemia. Thrombocytopenia. Bacteremia. Obesity. Assessment/Plan Continued all current supportive medical care. Aspirin. Losartan. GI prophylactics. Diuretics with Lasix. IV antibiotics as ordered. Tylenol for pain management. Additional plan as per the hospital course. Dietary Evaluation Review Comments: 1) Add cardiac restriction to diet 2) Encourage optimal PO intake 3) Refer to outpatient RD for weight management 4) Follow-up with cardiolgoy and orthopedic surgeon 5) Continue to monitor I&O, labs, and skin integrity Expected Outcomes/Goals: 1) appetite and labs to improve 2) gradual wt loss 3) f/u in 3-5 days Plan discussed with: Patient NOLVIA CASTRO MD Dec 09, 2024 12:51
--- NOTE | 2024-12-09 23:41 | DVHPN2 ---
Subjective DOS: 12/09/2024 Patient seen and examined at bedside. Remains on supplemental oxygen Overnight events reviewed. Reviewed: Care Plan, H&P, Labs, Medications, Previous Orders, Radiology Changes from previous H/P or p: No Changes General: Per HPI Objective Vitals Vital Signs Date Time Temp Pulse Resp B/P (MAP) Pulse Ox O2 Delivery O2 Flow Rate FiO2 12/09/24 21:00 98.7 102 17 133/73 (93) 93 98.7 12/09/24 20:00 Nasal Cannula* 1 24 Intake/Output Intake and Output 12/09/24 07:00 Intake Total 2155 ml Balance 2155 ml Intake Oral 1950 ml IV Total 205 ml # Voids 5 General Appearance: Alert, Oriented X3, Cooperative, No acute distress HEENT: Atraumatic Neck: Supple Lungs: Clear to auscultation, Other (Decreased air entry bilaterally) Cardiovascular: Normal S1, Normal S2, Other (Tachycardia) Abdomen: Normal bowel sounds, Soft, No tenderness Extremities: No edema Neuro: Normal speech, Cranial nerves 3-12 NL Psych/Mental Status: Mental status NL, Mood NL Medications Current Medications Medications Dose Ordered Sig/Mike Route Start Time Stop Time Status Last Admin Dose Admin Sodium Chloride 10 ml Q8HR IV 11/25/24 22:00 12/09/24 22:03 10 ML Docusate Sodium 100 mg BIDPRN PRN PO 11/25/24 18:45 Acetaminophen 650 mg Q6HP PRN PO 11/25/24 18:45 12/09/24 17:39 650 MG Ondansetron HCl 4 mg Q4HP PRN IV 11/25/24 18:45 Pantoprazole Sodium 40 mg DAILY@0700 PO 11/26/24 07:00 12/09/24 05:59 40 MG Aspirin 81 mg DAILY PO 11/30/24 10:00 12/09/24 09:20 81 MG Atorvastatin Calcium 40 mg HS PO 11/29/24 22:00 12/09/24 22:04 40 MG Piperacillin Sod/ Tazobactam Sod 100 ml @ 25 mls/hr Q8HR IV 11/30/24 06:00 12/09/24 22:04 25 MLS/HR Losartan Potassium 50 mg DAILY PO 12/01/24 10:00 12/09/24 09:20 50 MG Furosemide 20 mg DAILY IV 12/01/24 10:00 12/09/24 09:19 20 MG Nystatin 5 ml QID MT 12/01/24 18:00 12/09/24 22:03 5 ML Laboratory Results Laboratory Tests 12/08/24 04:51 Urinalysis Test 12/01/24 02:00 Urine Color Yellow (Yellow) Urine Clarity Turbid (Clear) H Urine pH 5.5 (5.0-9.0) Urine Specific [place] 1.025 (1.001-1.035) Urine Protein Trace (Negative) H Urine Ketones Negative (Negative) Urine Blood 2+ /uL (Negative) H Urine Nitrite Negative (Negative) Urine Bilirubin Negative (Negative) Urine Urobilinogen Normal mg/dL (Negative) Urine Leukocyte Esterase Negative /uL (Negative) Urine RBC 4 /hpf (0 - 4) Urine Microscopic WBC 2 /HPF (0-5) Urine Squamous Epithelial Cells Mod /hpf (<5) Urine Bacteria None seen /hpf (None Seen) Urine Glucose Normal mg/dL (Normal) Microbiology Microbiology Date/Time Source Procedure Growth Status 12/06/24 12:51 Blood Blood Culture - Preliminary NO GROWTH AFTER 72 HOURS OF INCUBATION. Resulted 12/01/24 02:00 Urine - Catheterized Urine Culture - Final Complete Assessment/Plan Assessment/Plan Impression: Acute hypoxic respiratory failure Dependence on supplemental oxygen Pneumonia, likely gram negative Pleural effusion Atelectasis Elevated D-dimer. Ruled out PE/DVT. Wheezing Obesity, BMI 34.4 Events: Remains on supplemental oxygen Currently on 2 LPM NC Taper O2 as tolerated Improving oxygen requirements Continue bronchodilators Continue antibiotics - complete course Incentive spirometry Chest/abdomen x-ray on 12/06 showed no e/o bowel obstruction. Significant for mild cardiomegaly. Protonix for GI ppx Lovenox for DVT ppx Diurese with Lasix Monitor renal function Monitor electrolytes, supplement as necessary Physical therapy. Disposition per hospitalist. Awaiting SNF placement. Labs and imaging reviewed. Rest of plan as noted below. Plan: Supplemental oxygen Titrate to keep O2 sats above 92%. RLE venous Doppler revealed no DVT. Elevated troponin - Cardiology recs appreciated. Echo revealed EF of 55%; mild LVH; mild diastolic dysfunction. Bronchodilators PRN Incentive spirometry Continue antibiotics Follow up cultures Bacteremia with E.coli Repeat blood cx show no growth after 48 hours Viral panel negative. Monitor hemoglobin. Transfuse if less than 7.0 g/dL. Follow up Ortho recommendations Maintain euvolemia Monitor renal function. Monitor electrolytes. Supplement as necessary. Monitor ins and outs. Diet and lifestyle modifications for weight reduction Obesity complicates all care GI prophylaxis - Protonix DVT prophylaxis - Lovenox. Prognosis: Poor given patient's multiple co-morbidities. Rest of plan per hospitalist and other consultants. Thank you, Dr. Rodriguez, for allowing me to participate in this patient's care. Further recommendations will depend on the patient's clinical course. Please do not hesitate to contact me if you have any questions or concerns. This medical document was created using an electronic medical record system with [employer] dictation system. Although these documentations are being carefully reviewed, there may still be some phonetic and typographical changes. The errors are purely typographical, due to imperfection on the software program, and do not reflect any compromise in the patient's medical care. Plan discussed with: Patient, Other (RN) Visit Coding Pulmonary Billing Provider: SHAWN HOUSE MD Date of Service if different f: Dec 09, 2024 Common Visit Codes: [id number] INP/OBS CARE(HIGH) SHAWN HOUSE MD Dec 09, 2024 23:41
[2024-12-10] VITALS (7 sets, daily range): BP systolic 134–152; BP diastolic 72–85; PULSE 93–101; RESP 16–20; TEMP 97.2–98.4; O2SAT 93–98
--- NOTE | 2024-12-10 14:35 | DVHPN2 ---
Reviewed: Care Plan, H&P, Labs, Medications, Previous Orders, Radiology Changes from previous H/P or p: No Changes General: Per HPI Objective Vitals Vital Signs Date Time Temp Pulse Resp B/P (MAP) Pulse Ox O2 Delivery O2 Flow Rate FiO2 12/10/24 13:00 97.2 98 16 147/80 (102) 96 97.2 12/10/24 10:00 Nasal Cannula 1.0 12/10/24 10:00 24 Intake/Output Intake and Output 12/10/24 07:00 Intake Total 1610 ml Balance 1610 ml Intake Oral 1410 ml IV Total 200 ml # Voids 4 # Bowel Movements 2 General Appearance: Alert, Oriented X3, Cooperative, No acute distress HEENT: Atraumatic Neck: Supple Lungs: Clear to auscultation, Other (Decreased air entry bilaterally) Cardiovascular: Normal S1, Normal S2, Other (Tachycardia) Abdomen: Normal bowel sounds, Soft, No tenderness Extremities: No edema Neuro: Normal speech, Cranial nerves 3-12 NL Psych/Mental Status: Mental status NL, Mood NL Medications Current Medications Medications Dose Ordered Sig/Mike Route Start Time Stop Time Status Last Admin Dose Admin Sodium Chloride 10 ml Q8HR IV 11/25/24 22:00 12/10/24 14:00 10 ML Docusate Sodium 100 mg BIDPRN PRN PO 11/25/24 18:45 Acetaminophen 650 mg Q6HP PRN PO 11/25/24 18:45 12/10/24 14:32 650 MG Ondansetron HCl 4 mg Q4HP PRN IV 11/25/24 18:45 Pantoprazole Sodium 40 mg DAILY@0700 PO 11/26/24 07:00 12/10/24 05:59 40 MG Aspirin 81 mg DAILY PO 11/30/24 10:00 12/10/24 09:14 81 MG Atorvastatin Calcium 40 mg HS PO 11/29/24 22:00 12/09/24 22:04 40 MG Piperacillin Sod/ Tazobactam Sod 100 ml @ 25 mls/hr Q8HR IV 11/30/24 06:00 12/10/24 13:59 25 MLS/HR Losartan Potassium 50 mg DAILY PO 12/01/24 10:00 12/10/24 09:14 50 MG Furosemide 20 mg DAILY IV 12/01/24 10:00 12/10/24 09:14 20 MG Nystatin 5 ml QID MT 12/01/24 18:00 12/10/24 09:13 5 ML Laboratory Results Laboratory Tests 12/08/24 04:51 Urinalysis Test 12/01/24 02:00 Urine Color Yellow (Yellow) Urine Clarity Turbid (Clear) H Urine pH 5.5 (5.0-9.0) Urine Specific [place] 1.025 (1.001-1.035) Urine Protein Trace (Negative) H Urine Ketones Negative (Negative) Urine Blood 2+ /uL (Negative) H Urine Nitrite Negative (Negative) Urine Bilirubin Negative (Negative) Urine Urobilinogen Normal mg/dL (Negative) Urine Leukocyte Esterase Negative /uL (Negative) Urine RBC 4 /hpf (0 - 4) Urine Microscopic WBC 2 /HPF (0-5) Urine Squamous Epithelial Cells Mod /hpf (<5) Urine Bacteria None seen /hpf (None Seen) Urine Glucose Normal mg/dL (Normal) Microbiology Microbiology Date/Time Source Procedure Growth Status 12/06/24 12:51 Blood Blood Culture - Preliminary NO GROWTH AFTER 72 HOURS OF INCUBATION. Resulted 12/01/24 02:00 Urine - Catheterized Urine Culture - Final Complete Assessment/Plan Assessment/Plan E coli bacteremia sensitive to Zosyn Acute hypoxic respiratory failure due to pulmonary congestion and suspected pneumonia Chest discomfort; to rule out ACS NSTEMI; elevated troponin Elevated D-dimer; PE and DVT ruled out Episodic wheezing with tachycardia Hypertensive heart disease without heart failure Physical deconditioning due to above Thrombocytopenia; unclear etiology Obesity Transfer to telemetry; reviewed EKG that showed no ST-elevation; ordered troponin that came back elevated Cardiology consulted Started aspirin and statin but aspirin was not given due to thrombocytopenia Started on nebulizers Continue oxygen therapy as indicated Started IV antibiotics Machine Driller consulted for SNF placement for rehab as per Physical Therapy recommendations when medically stable Counseled the patient importance of adopting healthy lifestyle with diet and exercise in order to lose weight Continue antihypertensive medication/s and adjust according to blood pressure monitoring Reviewed previous imaging studies including chest angiogram Reviewed the available lab work Ordered echocardiogram; reviewed old echocardiogram from 2021 that showed no wall abnormalities and no heart failure Ordered blood and urine cultures, we will continuing to monitor blood culture Continuing with nystatin swish and swallow for mouth sores.Continue current antibiotics. Continue rest of supportive care and treatment as she is on. Further clinical management per clinical course and pending echocardiogram results. Constipation: Continue colace and miralax PRN. Will give fleet enema. Continuing current management. Discussed with daughter and son at bedside in length regarding to plan of care. [facility] home facility for rehab when patient medically stable. We will repeat blood culture in am. We will follow up with blood culture. Apparently it showed Gram-negative again. We will waiting for the final results. 12/08/2024: pending SNF in [place] 12/09/2024: pending SNF, room assigned but waiting for auth 12/10/2024: discharged to SNF Plan discussed with: Patient Date of Service: Dec 10, 2024 Billing Provider: BRYAN SMALL DO Common Visit Codes: [id number] INP/OBS CARE(HIGH) BRYAN SMALL DO Dec 10, 2024 14:35
--- NOTE | 2024-12-10 14:37 | DVHPN2 ---
Progress Note - Dictate Date Seen: Dec 10, 2024 Medical Necessity Reason Pt with a Central, PICC or Fol: No vital signs Vital Sign Date Time Temp Pulse Resp B/P (MAP) Pulse Ox O2 Delivery O2 Flow Rate FiO2 12/10/24 13:00 97.2 98 16 147/80 (102) 96 97.2 12/10/24 10:00 Nasal Cannula 1.0 12/10/24 10:00 24 Total Intake and Output 12/09/24 12/09/24 12/10/24 15:00 23:00 07:00 Intake Total 1360 ml 250 ml Balance 1360 ml 250 ml medications Current Medications Medications Dose Ordered Sig/Mike Route Start Time Stop Time Status Last Admin Dose Admin Sodium Chloride 10 ml Q8HR IV 11/25/24 22:00 12/10/24 14:00 10 ML Docusate Sodium 100 mg BIDPRN PRN PO 11/25/24 18:45 Acetaminophen 650 mg Q6HP PRN PO 11/25/24 18:45 12/10/24 14:32 650 MG Ondansetron HCl 4 mg Q4HP PRN IV 11/25/24 18:45 Pantoprazole Sodium 40 mg DAILY@0700 PO 11/26/24 07:00 12/10/24 05:59 40 MG Aspirin 81 mg DAILY PO 11/30/24 10:00 12/10/24 09:14 81 MG Atorvastatin Calcium 40 mg HS PO 11/29/24 22:00 12/09/24 22:04 40 MG Piperacillin Sod/ Tazobactam Sod 100 ml @ 25 mls/hr Q8HR IV 11/30/24 06:00 12/10/24 13:59 25 MLS/HR Losartan Potassium 50 mg DAILY PO 12/01/24 10:00 12/10/24 09:14 50 MG Furosemide 20 mg DAILY IV 12/01/24 10:00 12/10/24 09:14 20 MG Nystatin 5 ml QID MT 12/01/24 18:00 12/10/24 09:13 5 ML laboratory and microbiology Laboratory Tests 12/08/24 04:51 Test 12/08/24 04:51 Range/Units Serum Glucose 90 74-106 mg/dL Assessment/Plan Acute hypoxic respiratory failure Dependence on supplemental oxygen Pneumonia, likely gram negative Pleural effusion Atelectasis Elevated D-dimer. Ruled out PE/DVT. Wheezing Obesity, BMI 34.4 Events: Remains on supplemental oxygen Currently on 2 LPM NC Taper O2 as tolerated Improving oxygen requirements Plan: Supplemental oxygen Titrate to keep O2 sats above 92%. RLE venous Doppler revealed no DVT. Elevated troponin - Cardiology recs appreciated. Echo revealed EF of 55%; mild LVH; mild diastolic dysfunction. Bronchodilators PRN Incentive spirometry Continue antibiotics Follow up cultures Bacteremia with E.coli Repeat blood cx show no growth after 48 hours Viral panel negative. Monitor hemoglobin. Transfuse if less than 7.0 g/dL. Follow up Ortho recommendations Maintain euvolemia Monitor renal function. Monitor electrolytes. Supplement as necessary. Monitor ins and outs. Diet and lifestyle modifications for weight reduction Obesity complicates all care GI prophylaxis - Protonix DVT prophylaxis - Lovenox. Dietary Evaluation Review Comments: 1) Add cardiac restriction to diet 2) Encourage optimal PO intake 3) Refer to outpatient RD for weight management 4) Follow-up with cardiolgoy and orthopedic surgeon 5) Continue to monitor I&O, labs, and skin integrity Expected Outcomes/Goals: 1) appetite and labs to improve 2) gradual wt loss 3) f/u in 3-5 days Plan discussed with: Patient JUSTUS NAIK MD Dec 10, 2024 14:37
--- NOTE | 2024-12-10 14:37 | DVHDS2 ---
Discharge Summary Date of Admission Nov 25, 2024 at 18:37 Date of Discharge: Dec 10, 2024 Labs/Diagnostic Data: Laboratory Results Test 12/08/24 04:51 12/01/24 06:41 12/01/24 02:00 11/30/24 15:33 White Blood Count 5.5 10^3/uL (4.4-10.8) Red Blood Count 3.20 10^6/uL (4.0-5.20) Hemoglobin 10.4 g/dL (12.2-16.2) Hematocrit 29.5 % (36.0-46.0) Mean Corpuscular Volume 92.2 fL (80.0-100.0) Mean Corpuscular Hemoglobin 32.6 pg (28.0-32.0) Mean Corpuscular Hemoglobin Concent 35.3 g/dL (32.0-36.0) Red Cell Distribution Width 14.2 % (11.8-14.3) Platelet Count 512 10^3/uL (140-450) Mean Platelet Volume 8.7 fL (6.9-10.8) Neutrophils (%) (Auto) 76.1 % (37.0-80.0) Lymphocytes (%) (Auto) 12.8 % (10.0-50.0) Monocytes (%) (Auto) 9.4 % (0.0-12.0) Eosinophils (%) (Auto) 1.3 % (0.0-7.0) Basophils (%) (Auto) 0.4 % (0.0-2.0) Neutrophils # (Auto) 4.2 10 ^3/uL (1.6-8.6) Lymphocytes # (Auto) 0.7 10 ^3/uL (0.4-5.4) Monocytes # (Auto) 0.5 10 ^3/uL (0-1.3) Eosinophils # (Auto) 0.1 10 ^3/uL (0-0.8) Basophils # (Auto) 0 10 ^3/uL (0-0.2) Nucleated Red Blood Cells 0.0 % Sodium Level 139 mmol/L (136-145) Potassium Level 3.3 mmol/L (3.5-5.1) Chloride Level 100 mmol/L (98-107) Carbon Dioxide Level 28 mmol/L (20-31) Anion Gap 11 (5-15) Blood Urea Nitrogen 9 mg/dL (9-23) Creatinine 0.56 mg/dL (0.550-1.02) Glomerular Filtration Rate Calc 95 mL/min (>90) BUN/Creatinine Ratio 16.1 (10.0-20.0) Serum Glucose 90 mg/dL (74-106) Calcium Level 8.0 mg/dL (8.7-10.4) Troponin I High Sensitivity 451 ng/L (</=34) Urine Color Yellow (Yellow) Urine Clarity Turbid (Clear) Urine pH 5.5 (5.0-9.0) Urine Specific [place] 1.025 (1.001-1.035) Urine Protein Trace (Negative) Urine Ketones Negative (Negative) Urine Blood 2+ /uL (Negative) Urine Nitrite Negative (Negative) Urine Bilirubin Negative (Negative) Urine Urobilinogen Normal mg/dL (Negative) Urine Leukocyte Esterase Negative /uL (Negative) Urine RBC 4 /hpf (0 - 4) Urine Microscopic WBC 2 /HPF (0-5) Urine Squamous Epithelial Cells Mod /hpf (<5) Urine Bacteria None seen /hpf (None Seen) Urine Glucose Normal mg/dL (Normal) Lactic Acid Level 1.8 mmol/L (0.4-2.0) Test 11/30/24 05:20 11/30/24 04:00 11/29/24 15:43 11/28/24 04:53 Hemoglobin A1c 5.8 % A1C (<5.7) Magnesium Level 2.2 mg/dL (1.6-2.6) Total Bilirubin 1.3 mg/dL (0.2-1.0) Aspartate Amino Transferase (AST) 36 U/L (13-40) Alanine Aminotransferase (ALT) 34 U/L (7-40) Alkaline Phosphatase 198 U/L (46-116) Lactate Dehydrogenase 352 U/L (120-246) Total Protein 6.1 g/dL (5.7-8.2) Albumin 3.2 g/dL (3.2-4.8) Triglycerides Level 217 mg/dL (< 150) Cholesterol Level 126 mg/dL (< 200) LDL Cholesterol 73 mg/dL (< 100) HDL Cholesterol 7 mg/dL (40-59) Thyroid Stimulating Hormone (TSH) 4.09 uIU/mL (0.55-4.78) Influenza Type A Antigen Negative (Negative) Influenza Type B Antigen Negative (Negative) SARS-CoV-2 Antigen (Rapid) Negative (NEGATIVE) POC Glucose 84 mg/dl (70-106) Differential Total Cells Counted 100.0 (100) Neutrophils % (Manual) 77 (37.0-80.0) Band Neutrophils % (Manual) 1 Lymphocytes % (Manual) 19 (10.0-50.0) Monocytes % (Manual) 1 (0-12) Eosinophils % (Manual) 0 (0-7) Basophils % (Manual) 0 (0.0-2.0) Metamyelocytes % (manual) 1 Myelocytes % (Manual) 1 Promyelocytes % (Manual) 0 Blast Cells % (Manual) 0 Reactive Lymphocytes 0 Platelet Estimate Decreased Clumped Platelets Few Test 11/27/24 04:56 11/25/24 15:10 Anisocytosis (manual) Slight D-Dimer, Quantitative 34.11 mg/L FEU (0.0-0.49) Other Laboratory Tests 12/08/24 04:51 Brief Hx & Hospital Course: E coli bacteremia sensitive to Zosyn Acute hypoxic respiratory failure due to pulmonary congestion and suspected pneumonia Chest discomfort; to rule out ACS NSTEMI; elevated troponin Elevated D-dimer; PE and DVT ruled out Episodic wheezing with tachycardia Hypertensive heart disease without heart failure Physical deconditioning due to above Thrombocytopenia; unclear etiology Obesity Transfer to telemetry; reviewed EKG that showed no ST-elevation; ordered troponin that came back elevated Cardiology consulted Started aspirin and statin but aspirin was not given due to thrombocytopenia Started on nebulizers Continue oxygen therapy as indicated Started IV antibiotics Program Coordinator consulted for SNF placement for rehab as per Physical Therapy recommendations when medically stable Counseled the patient importance of adopting healthy lifestyle with diet and exercise in order to lose weight Continue antihypertensive medication/s and adjust according to blood pressure monitoring Reviewed previous imaging studies including chest angiogram Reviewed the available lab work Ordered echocardiogram; reviewed old echocardiogram from 2021 that showed no wall abnormalities and no heart failure Ordered blood and urine cultures, we will continuing to monitor blood culture Continuing with nystatin swish and swallow for mouth sores.Continue current antibiotics. Continue rest of supportive care and treatment as she is on. Further clinical management per clinical course and pending echocardiogram results. Constipation: Continue colace and miralax PRN. Will give fleet enema. Continuing current management. Discussed with daughter and son at bedside in length regarding to plan of care[facility] patient medically [facility]. We will repeat blood culture in am. We will follow up with blood culture. Apparently it showed Gram-negative again. We will waiting for the final results. 12/08/2024: pending SNF in [place] 12/09/2024: pending SNF, room assigned but waiting for auth 12/10/2024: discharged to SNF Condition at Discharge: Fair Final Diagnosis/Problems List see above Discharge Disposition: [facility] Facility Discharge Instruct/Medications Diet: Cardiac 2g Na,low cholest Activity: No Restrictions, As Tolerated Scheduled Aspirin (Aspirin), 1 TAB PO BID, (Reported) Docusate Sodium (Docusate Sodium), 1 CAP PO BID PRN, (Reported) Ibuprofen Micronized (Ibuprofen), 1 TAB PO DAILY, (Reported) Losartan Potassium & Hydrochlo (Losartan Potassium/Hydroc), 1 TAB PO DAILY, (Reported) Metoprolol Succinate (Metoprolol Succinate Er), 1 TAB PO DAILY, (Reported) Pantoprazole Sodium Sesquihydr (Pantoprazole Sodium), 20 MG PO DAILY PRN, (Reported) Discharge Statement: "Patient was advised to return to the ER or call 911 if any headaches, dizziness, shortness of breath, chest pain, abdominal pain, bleeding, fevers, or worsening of medical condition. Patient was counseled about treatment plan, medications, possible side effects, patientverbalized understanding. All questions were answered to the best of my ability. This discharge took greater then 30 minutes in planning, reviewing documentation, counseling the patient, and discussing with other team members." ASSESSMENT ASSESSMENT Assessment Date of Service: Dec 10, 2024 Billing Provider: BRYAN SMALL DO Common Visit Codes: 52754-LCV/[id number] DISCH DAY >30min BRYAN SMALL DO Dec 10, 2024 14:37
--- NOTE | 2024-12-10 23:17 | DVHPN2 ---
Progress Note - Dictate Date Seen: Dec 10, 2024 Medical Necessity Reason Pt with a Central, PICC or Fol: No Subjective Patient was seen and evaluated in follow up. Patient has no new complaints at this time. Patient denies any cardiac symptoms. Patient is cardiac stable for discharge. Telemetry reviewed. vital signs Vital Sign Date Time Temp Pulse Resp B/P (MAP) Pulse Ox O2 Delivery O2 Flow Rate FiO2 12/10/24 10:00 97 Nasal Cannula 1.0 12/10/24 10:00 24 12/10/24 09:14 138/79 12/10/24 09:00 97.4 98 20 97.4 Total Intake and Output 12/09/24 12/09/24 12/10/24 15:00 23:00 07:00 Intake Total 1360 ml 250 ml Balance 1360 ml 250 ml medications Current Medications Medications Dose Ordered Sig/Mike Route Start Time Stop Time Status Last Admin Dose Admin Sodium Chloride 10 ml Q8HR IV 11/25/24 22:00 12/10/24 05:52 10 ML Docusate Sodium 100 mg BIDPRN PRN PO 11/25/24 18:45 Acetaminophen 650 mg Q6HP PRN PO 11/25/24 18:45 12/10/24 05:59 650 MG Ondansetron HCl 4 mg Q4HP PRN IV 11/25/24 18:45 Pantoprazole Sodium 40 mg DAILY@0700 PO 11/26/24 07:00 12/10/24 05:59 40 MG Aspirin 81 mg DAILY PO 11/30/24 10:00 12/10/24 09:14 81 MG Atorvastatin Calcium 40 mg HS PO 11/29/24 22:00 12/09/24 22:04 40 MG Piperacillin Sod/ Tazobactam Sod 100 ml @ 25 mls/hr Q8HR IV 11/30/24 06:00 12/10/24 05:48 25 MLS/HR Losartan Potassium 50 mg DAILY PO 12/01/24 10:00 12/10/24 09:14 50 MG Furosemide 20 mg DAILY IV 12/01/24 10:00 12/10/24 09:14 20 MG Nystatin 5 ml QID MT 12/01/24 18:00 12/10/24 09:13 5 ML objective GENERAL: Alert and oriented x 3. No acute distress. Obese. EYES: PERRL, EOMI. Anicteric. HENT: Moist mucous membranes. LUNGS: Clear to auscultation bilaterally. CARDIOVASCULAR: Regular rate and rhythm. ABDOMEN: Soft, non-tender and non-distended. EXTREMITIES: Nonpitting edema to bilateral lower legs. NEUROLOGIC: No focal neurological deficits. SKIN: Warm, dry. laboratory and microbiology Laboratory Tests 12/08/24 04:51 Test 12/08/24 04:51 Range/Units Serum Glucose 90 74-106 mg/dL Problem List NSTEMI. Rule out structural heart disease. Coronary artery disease s/p PTCA's X 4 LITA (on ASA). Hypertension. Dyslipidemia. Thrombocytopenia. Bacteremia. Obesity. Assessment/Plan Continued all current supportive medical care. Aspirin. Losartan. GI prophylactics. Diuretics with Lasix. IV antibiotics as ordered. Tylenol for pain management. Additional plan as per the hospital course. Dietary Evaluation Review Comments: 1) Add cardiac restriction to diet 2) Encourage optimal PO intake 3) Refer to outpatient RD for weight management 4) Follow-up with cardiolgoy and orthopedic surgeon 5) Continue to monitor I&O, labs, and skin integrity Expected Outcomes/Goals: 1) appetite and labs to improve 2) gradual wt loss 3) f/u in 3-5 days Plan discussed with: Patient NOLVIA CASTRO MD Dec 10, 2024 12:39
== END 2024-12-10 17:30 | DRG 871 ==
LOC: EDUNIT# 14:12 → ER 14:12 → EDBD 14:12 → OVERFLOW 18:37 → WEST WING 23:01 → TELE-WESTW 11-29 22:35
PROVIDERS: ADMIT Internal Medicine; ATTEND Internal Medicine
DX: A41.51 Sepsis due to Escherichia coli [E. coli] (principal); I21.4 Non-ST elevation (NSTEMI) myocardial infarction; J18.9 Pneumonia, unspecified organism; J96.01 Acute respiratory failure with hypoxia; J98.11 Atelectasis; J90 Pleural effusion, not elsewhere classified; Z20.822 Contact with and (suspected) exposure to COVID-19; I11.9 Hypertensive heart disease without heart failure; D69.6 Thrombocytopenia, unspecified; E66.9 Obesity, unspecified; I25.10 Atherosclerotic heart disease of native coronary artery without angina pectoris; E87.6 Hypokalemia; E78.5 Hyperlipidemia, unspecified; Z96.651 Presence of right artificial knee joint; B96.20 Unspecified Escherichia coli [E. coli] as the cause of diseases classified elsewhere; K59.00 Constipation, unspecified; M25.561 Pain in right knee; Z88.5 Allergy status to narcotic agent; Z68.34 Body mass index [BMI] 34.0-34.9, adult; Z91.0110 Allergy to milk products, unspecified; Z91.018 Allergy to other foods; Z99.81 Dependence on supplemental oxygen; Z98.61 Coronary angioplasty status; I25.2 Old myocardial infarction; Z75.1 Person awaiting admission to adequate facility elsewhere
CPT/HCPCS: 36415; 71045; 71275; 73502; 73562; 74018; 76775; 80048; 80053; 80061; 81001; 82962; 83036; 83605; 83615; 83735; 84443; 84484; 85007; 85025; 85027; 85379; 87040; 87077; 87086; 87186; 87426; 87804; 93005; 93306; 93971; 94640; 97110; 97116; 97163; 97530; 99291; G0378; J2543; J3480